=== PATIENT | female | born 1945 | race Caucasian/White ===

== ENCOUNTER 2019-11-29 16:48 | Inpatient (IN) | payer MEDICARE, SELFPAY ==
[2019-11-29 16:55] VITALS: BP 140/57; PULSE 58; RESP 18; TEMP 36.9; O2SAT 96; BMI 30.9
--- NOTE | 2019-11-29 18:17 | PCM.HP.STD ---
Problem List (1) DALLAS (obstructive sleep apnea) Status: Chronic Comment: Untreated (2) Mitral valve prolapse Status: Chronic (3) GERD (gastroesophageal reflux disease) Status: Chronic (4) History of rheumatic fever as a child Status: Chronic History of Present Illness Date of Admission: 11/29/19 Chief Complaint: Debility due to inability to ambulate secondary to right lateral malleolus comminuted fracture and a left talus fracture sustained in a fall on 11/28/19 The patient is a 74 year old F [] Past Medical History Past Medical History (Chronic Problems): Chronic Problems DALLAS (obstructive sleep apnea) (Chronic) Untreated Mitral valve prolapse (Chronic) GERD (gastroesophageal reflux disease) (Chronic) History of rheumatic fever as a child (Chronic) Allergies codeine Allergy (Verified 06/20/17 09:47) Unknown Surgical History: cholecystectomy, - - Tubal ligation Psychiatric History: No pertinent psych hx 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 She has 2 daughters. Smoking Status: Never smoker Tobacco Use: Non-smoker Alcohol: None Drugs: None - *Family History Maternal History Items: Cancer - Her mother at the age of 45 from colon cancer Paternal History Items: - - Father of congestive heart failure Review of Systems Constitutional: Denies: Chills, Fever, Weight Change Eyes: Denies: Blurred vision HEENT: Denies: Difficulty Hearing, Difficulty Swallowing, Head Aches, Sinus Congestion, Sinus Drainage, Sore Throat Cardiovascular: Reports: Light Headedness - episodic. Denies: Chest Pain, Palpitations, Syncope Respiratory: Denies: Cough, Hemoptysis, Pleuritic Pain, Shortness of Breath, Shortness of breath at rest, Sputum production, Wheezing Gastrointestinal: Denies: Abdominal Pain, Constipation, Diarrhea, Nausea, Vomiting Genitourinary: Denies: Dysuria Gynecological: Denies: Breast symptoms, Vaginal discharge Musculoskeletal: Reports: Joint Pain - both ankles due to recent fall and BL ankle fractures. Denies: Joint Tenderness Skin: Denies: Jaundice, Rash, Wounds Neurological: Reports: Balance problems - due to fractures. Denies: Change in Speech, Confusion, Difficulty swallowing, Focal weakness, Numbness, Tingling, Tremor, Seizures Psychiatric: Denies: Anxiety, Depression, Homicidal Ideations, Suicidal Ideations Hematologic/ Lymphatic: Denies: Easy Bruising, Easy Bleeding, Hx of blood clot VTE Information - Inpt Only VTE Present on Admission: No VTE Mechan Device Prophylaxis: Knee High MARIA M Hose VTE Pharm Prophylaxis ordered?: Yes Subjective: The pt is a 74-year-old female with a PMH of mitral valve prolapse, rheumatic fever as a child, GERD, DALLAS(not on CPAP), and obesity who was admitted to the Inpatient rehab unit at [facility] on 11/29/2019 for debility secondary to right lateral malleolar fracture and left talus fracture secondary to a fall for greater than 3 hours of therapy daily with a goal of returning home at or near prior level of independence. The patient lives at home by herself and has no steps. The patient was independent with ADL's, mobility and driving prior to hospitalization. She has a boot on the RLE and she is NWB on the RLE. She is WBAT on the LLE. Unable to ambulate today due to pain. She is not a surgical candidate. She tells me that she has episodic lightheadedness when standing and feels as though she is going to pass out. When she fell causing the fractures of the ankles she was trying to get to the couch or the chair before she passed out. she did not lose consciousness but, she did fall and could not get up. She tells me she got sweaty prior to falling. She denied CP or SOB. She had a cardiac cath in the past and the coronaries were normal. She is on 75mg of Atenolol daily. States her HR used to be in the 60's all the time but, now it is in the 40'2 and 50's. EKG in the ED at [facility] showed SB with a HR of 52, even with severe pain in the ankles. there was a first degree AVB but no significant ST or T wave changes and no BBB's. Mother of colon CA at the age of 45. Altagracia has a colonoscopy every 5 years. she has not had a MMG in at least 15 years. She has never had a DEXA. - Physical Exam Vitals/I&O's: Weight: 158 lb 1.143 oz Body Mass Index (BMI) 30.9 General: Alert, Oriented x3, Cooperative, No apparent distress, - - denies pain while lying in bed HEENT: Atraumatic, PERRLA, EOMI, Normocephalic Oral: No Gingival or Mucosal Lesions/ Ulcerations, Dry Mucosa Neck: Supple, No JVD, Negative Carotid Bruits, No Nodes, Trachea Midline Lungs: Clear to auscultation, Normal air movement, No rhonchi, No wheeze, No rales Cardiovascular: Regular rate, Regular Rhythm, Normal S1, Normal S2, No murmurs, No rub noted, No Gallop Abdomen: Bowel Sounds Present, Soft, Non Tender, Non-Distended, No Hepato-splenomegaly Extremities: No clubbing, No cyanosis, No edema, Capillary Refill Less than 3 Seconds, No Calf Tenderness, Peripheral Pulses Normal Skin: No rashes, No breakdown, - - she has extensive bruising of the L lateral foot and ankle with no openings in the skin Musculoskeletal: No Tenderness to Palpation of Joints or Extremities, No Muscle Wasting Lymphatic: - - No cervical or supraclavicular adenopathy Neurological: Cranial nerves II-XII grossly intact, Neuro grossly intact Psych/Mental Status: Normal Affect, Appropriate Current Medications Acetaminophen (Tylenol) 1,000 mg PO Q8 [facility] Aspirin (Aspirin, Baby) 81 mg PO DAILY@0800 [facility] Atenolol (Tenormin (Beta Sagrario)) 0 mg PO BID [facility] Bisacodyl (Dulcolax) 10 mg RECTAL .PRN X 1 PRN PRN Reason: Constipation Carbamazepine (Tegretol) 0 mg PO BIDCM [facility] Enoxaparin Sodium (Lovenox) 40 mg SC DAILY [facility] Famotidine (Pepcid) 20 mg PO DAILY [facility] Magnesium Hydroxide (Milk Of Magnesia) 30 ml PO .PRN X 1 PRN PRN Reason: Constipation Ondansetron HCl (Zofran Odt) 4 mg PO Q8H PRN PRN PRN Reason: NAUSEA Oxycodone HCl (Oxyir) 5 mg PO Q4H PRN PRN PRN Reason: Pain Score 4-10/10 Senna/Docusate Sodium (Senokot-S, Nuria-Colace) 2 tablet PO BID [facility] Assessment/Plan Impressions 1. Mildly comminuted fracture of the right lateral malleolus and small avulsion fracture of the left talus secondary to a fall. 2. Episodic lightheadedness and feeling as though she is going to faint associated with diaphoresis but no chest pain and no shortness of breath. Check orthostatic vital signs in the a.m. Heart rate was only 52 in the emergency department at [facility] and this may be too slow for her resulting in near syncope. 3. Chronic medical conditions including the mitral valve prolapse/GERD/DALLAS-unable to tolerate CPAP/rheumatic fever as a 5-year-old. If in continue home medications 4. Family history of colon cancer in her mother. Patient gets colonoscopies every 5 years but has not had a Pap smear or a mammogram in over 15 years and she has never had a DEXA. I recommended she obtain a mammogram, Pap smear and DEXA following discharge from the rehab unit. PLAN PT for gait stability OT for ADL's Analgesics as needed Bowel protocol Fall precautions Assess for Anxiety/Depression GI prophylaxis with famotidine with PRN Mylanta for breakthrough heartburn DVT prophylaxis with Lovenox 40 mg subcu night and once I am able to see her kidney function and other lab ordered we will switch her to a oral agent for DVT prophylaxis. Follow up with Dr. Orlando Sanchez following DC from [facility] Rehab and with orthopedics
--- NOTE | 2019-11-29 18:42 | PCM.RU.PYE ---
Admission Information Primary Diagnosis:: debility due to comminuted fx of the R lateral malleolus and the L talus Status Changes from Prescreening?: No changes Identified Actual Problem List:: Falls - due to, Alteration in Sleep - due to pain, Mobility Impaired, Self Care Deficit Potential Problem List:: DVT, Bleeding, Infection, UTI, Falls, Skin Integrity, Depression Risk of Complications DVT: LMWH, MARIA M Hose Bleeding: Monitor Lab Values, Nursing to Teach Precautions for anti-coagulation therapy., Wound, if applicable, to be assessed every shift., Stroke patients assessed for lethargy or change in status. Infection: Clinical Staff to Monitor for S/S of infection:, S/S of infection include fever, redness, warmth, etc. Urinary Tract Infection: Monitor for frequency, burning, discomfort, or incontinence., Nursing will obtain urine sample for urinalysis and C&S when ordered. Falls: Patient will be evaluated for Fall Precautions, Patient will be placed on Fall Precautions as indicated per protocol. Skin Breakdown: Nursing will assess skin daily using assessment tool., Nursing will place on Skin Breakdown Precautions as indicated. Pain: Clinical staff will assess patient's pain level per protocol., Medications will be given, if needed, and the pain level reassessed., Other methods: Massage, distraction, decrease stimulus, etc. used PRN. Plan of Care Patient requires physician specializing in physical medicine and rehab oversight to provide close medical supervision of rehab issues including: Pain Management, Sleep Problems, Bowel and Bladder, Medical and co-morbidity Management, DVT prophylaxis, Rehabilitation Leadership, Coordination of treatment team Patient needs Physical Therapy: For a minimum of 1 hour, At least 5 out of 7 days Patient needs Physical Therapy to improve:: Mobility, Mobility, Mobility, Strengthening, Transfers, Stretching, ROM, Endurance, Stairs, Gait, Balance Patient needs Occupational Therapy: For a minimum of 1 hour, At least 5 out of 7 days Patient needs Occupational Therapy to improve ADL's incl.: Eating, Grooming, Bathing, Dressing, Toileting, Toilet transfers, Community Reintegration, Higher functioning activities, Household tasks, Adaptive Equipment, Splinting, Other activities as determined Patient requires 24/7 Rehabilitation Nursing for: Pain Issues, Identifying and preventing risk factors, Monitoring and reporting current medical conditions, Assisting with ambulation, transfer, and all ADL's, Teaching patients about disease process and medications, Family teaching, Providing safe environment, Bowel and Bladder Issues, Skin integrity, Medication Management Patient needs Research Agricultural Engineer/ Case Management for: Discharge Planning, Arranging Home Equipment or Services, Family Interventions Patient needs Dietary and Nutrition Services for: Adequate Nutrition, Nutritional Supplements, Nutritional Education Goals Patient will remain: free from falls, or injury at time of discharge. Patient will perform bed mobility at: MOD I level of assist. Patient will complete transfers from bed to chair at: MOD I level of assist. Patient will ambulate: 100 feet, with MOD I assist, with LRD Patient will complete upper body dressing at: MOD I level of assist. Patient will complete lower body dressing at: MOD I level of assist. Patient will complete toileting at: MOD I level of assist. Patient will perform bathing at: MOD I level of assist. Patient will complete grooming at: MOD I level of assist. Patient will complete home management skills at: MOD I level of assist. Patient will achieve: 12 stairs, at MOD I assist Patient will have pain level of: of 3 or less Patient's skin will: remain intact, free from infection. Patient will receive: adequate nutrition. Discharge Planning Pt Prognosis for Sig. Practical Improv. w/in Reasonable Time: Good Estimated Length of stay (days): 14 Anticipated D/C Destination: unknown at this time. Was Preadmission Assessment Accurate?: Yes
[2019-11-29 19:03] LABS: Hemoglobin 12.8 g/dL (12.0-15.0); Mean Corp Hgb Conc 33.7 g/dL (32-36); Mean Corpuscular Hgb 30.2 pg (27.0-32.0); Mean Corpuscular Volume 89.6 fL (81-99); Mean Platelet Vol. 9.5 fl (6.2-12.0); Platelet Count 243 K/mm3 (150-450); RBC Distribution Width CV 12.2 % (11.6-14.6); RBC Distribution Width SD 39.9 fl (35.1-43.9); Red Blood Count 4.24 M/mm3 (4.2-5.4)
[2019-11-29 19:45] LABS: Carbamazepine (Tegretol) 8.2 ug/mL (4.0-12.0)
[2019-11-29 19:47] LABS: ALB/GLOB Ratio 1.1 RATIO (0.9-2.4); AST(SGOT) 23 U/L (15-37); Alanine Aminotransfer ALT/SGPT 29 U/L (13-56); Albumin, Serum 3.7 g/dL (3.2-5.0); Alkaline Phosphatase 187 U/L (45-117); Anion Gap 7 (5-15); BUN 14 mg/dL (7-18); BUN/Creat Ratio 14.5 RATIO (10-20); Chloride 95 mmol/L (98-107); Creatinine, Serum 0.97 mg/dL (0.55-1.02); EST Glomerular Filtration Rate 60 mL/min (>60); Est Glom Filt Rate - Afr Amer 72 mL/min (>60); Estimated Creatinine Clearance 36.55 ml/min; Globulin 3.5 g/dL (2.2-4.2); Glucose 96 mg/dL (74-106); Magnesium 2.3 mg/dL (1.6-2.6); Potassium 3.7 mmol/L (3.5-5.1); Protein, Total 7.2 g/dL (6.4-8.2); Sodium Level 131 mmol/L (136-145)
[2019-11-29 19:53] LABS: Vitamin D,25 Hydroxy 22.7 ng/mL (29.95-100.01)
[2019-11-29] MEDS: oxyCODONE 5 MG Tablet PO (19:57)
[2019-11-29 20:25] VITALS: BP 117/57; PULSE 56; RESP 16; TEMP 36.8; O2SAT 96
[2019-11-29 20:26] VITALS: PULSE 62
[2019-11-29 20:27] LABS: Thyroid Stim Hormone (TSH) 3.02 uIU/mL (0.358-3.74)
[2019-11-29] MEDS: Famotidine 20 MG Tablet PO (20:28)
[2019-11-29] MEDS: Senna/Docusate Sodium 1 Tablet 2 TABLET PO (20:28)
[2019-11-29] MEDS: Atenolol 50 MG Tablet PO (20:28)
[2019-11-29] MEDS: Acetaminophen 500 MG Tablet 1000 MG PO (22:12)
[2019-11-29] MEDS: Zolpidem Tartrate 5 MG Tablet PO (22:46)
[2019-11-29] MEDS: Ondansetron ODT 4 MG Tablet PO (23:51)
--- NOTE | 2019-11-30 00:07 | NURSING ---
2000: upon hs assessment and med administration, pt seems to be very anxious. pt expresses great worry of receiving a shot in the belly of lovenox in am. pt states the dr talked to her about it but she is really worried it will hurt. this nurse explained the process of the injection and possible side effect of burning to the patient. pt has increased worry and asks how long the burn will last for. this nurse explains that it varies per pt and it is possible that burning may not occur. pt states she understands. with further assessment, pt expresses concern for the pain in her leg. pt states she has a 9/10 pain and it feels like its going to blow out of the boot. pt feet elevated on a pillow. 2129: soon after, pt states she needs to use the restroom. staff encourages use of bsc for ease of stand pivot transfer. pt insistent on using bathroom. pt yelling out in pain with transfer and moaning for staff assistance to sit up. this nurse reassures pt that staff will assist her, but staff unaware of transferring needs at this time d/t new admit with no therapy eval yet. pt transferred into wheelchair and into restroom. pt grabs grab bar and transfers to bsc. staff attempts to help pt with underwear and pt refusing staff help. pt transferred back to bed after use of restroom and pt worried about the pain in legs. legs elevated. 2200: hs dose of tylenol administered. 2246: ambien administered per pt request of needing to sleep. 2330: pt calls out stating that she is having 10/10 pain and experiencing nausea related to the pain. pt wants to get up to use restroom. staff encourages use of bedpan d/t extreme pain and nausea. pt refuses and states that she cannot use a bedpan and is unable to urinate in one. pt assisted to bsc at this time. pt expresses concern of severe pain and asks why the sleeping pill has not worked yet. pt also expresses concern about waking up in am to do am care and adl. pt states that she has not slept yet and she is concerned about waking up early. pt also expresses concern of getting up to bathe and pt requests bed bath in the morning- pt still c/o nausea, PRN zofran given at 2351. 0000- RN paged hospitalist dr solis and notified of increased 10/10 pain and increased anxiety. dr solis orders 10mg oxyir Q4H PRN and Ativan 0.5 mg x1 dose. Will continue to monitor pt for increased pain and anxiety.
[2019-11-30] MEDS: LORazepam 0.5 MG Tablet PO (00:33)
[2019-11-30] MEDS: oxyCODONE 5 MG Tablet 10 MG PO ×3 (00:33→19:49)
[2019-11-30 04:24] LABS: Bedside Glucose 117 mg/dL (70-110)
--- NOTE | 2019-11-30 04:42 | NURSING ---
PT C/O STOMACH INDIGESTION AFTER ADMINISTRATION OF PAIN MEDICATION; UPON ENTERING ROOM PT FOUND SWEATY, PALE; BP 97/42. PT GIVEN SALTINE CRACKERS, BRITTANY IZA, MYLANTA. BS CHECKED FOR 117; BP RECHECK 117/57. PT STATED FEELS BETTER.
[2019-11-30] MEDS: Enoxaparin 40 MG/0.4 ML Syringe SC (06:17)
[2019-11-30] MEDS: Acetaminophen 500 MG Tablet 1000 MG PO ×3 (06:17→22:16)
[2019-11-30 07:00] VITALS: BP 119/56; BP 132/72; BP 133/79; PULSE 54; PULSE 57; PULSE 58
[2019-11-30 08:56] VITALS: BP 119/56; PULSE 54; RESP 16; TEMP 36.6; O2SAT 97
[2019-11-30] MEDS: Famotidine 20 MG Tablet PO ×2 (09:02→22:17)
[2019-11-30] MEDS: Atenolol 25 MG Tablet PO (09:02)
[2019-11-30] MEDS: carBAMazepine 200 MG Tablet 100 MG PO (09:02)
[2019-11-30] MEDS: Aspirin 81 MG TAB.CHEW PO (09:03)
[2019-11-30] MEDS: Senna/Docusate Sodium 1 Tablet 2 TABLET PO ×2 (09:04→22:16)
--- NOTE | 2019-11-30 12:48 | PN_ITS ---
Progress Note Afebile VSS orthostatics not done yet todAY. HR is in the 50's. BP lying down is good. Maintaining appropriate oxygen saturation on RA Discussed with nursing - pt was up a good deal of the night c/o severe pain. Oxycodone was increased to 10 mg by the night hospitalist. Nursing feels the pt is very anxious and this is affecting pain perception. She tells me that when the boot was removed the pain got better. She thinks the strap was causing too much pressure. Reviewed the PT/OT notes - she ambulated 5 ft with a FWW - complaining of pain on the left at 8/10. Medication list reviewed. All lab was personally reviewed. Sodium was low at 131 and the chloride is low at 95. Potassium is 3.7 and they serum bicarb is 29. BUN is 14 and a creatinine is 0.97. Vitamin D level is low at 22.7 and the TSH is normal. Carbamazepine is within the therapeutic window at 8.2. Alert, oriented X 3, pleasant. Pain is adequately controlled at this time. Denies nausea, chills, abdominal pain. No SOB and no CP. Alert , oriented X 3, Appropriate Lung - CTA Heart-regular rate and rhythm, no gallop Abdomen-soft, nontender, nondistended, normal bowel sounds in all 4 quadrants There is bruising of both ankles and swelling. The distal medial RLE has a localized area of increased bruising with a fluid filled blister in the center m ore likely than not secondary to pressure ulcer due to external pressure from the boot/straps. She has some calf tenderness on the right Impressions 1. New pressure ulcer on the distal/medial RLE - apply Bactroban to the blister/ulcer BID. Nursing will check the area BID and report any redness, increased warmth or purulent DC to me immediately. 2. intractable pain causing insomnia - Add a 12 mcg/hr Fentanyl patch for continuous pain relief and continue the PRN oxycodone and Tylenol 1,000 mg Q 8 hours. Hopefully will be able to DC the Fentanyl after 3-4 more days. 3. R lateral malleolus fracture and L talus fracture. RLE in a boot and WBAT on the LLE. Pt would prefer to follow up with Dr. Gibbons or Dr. Tabares rather than . Will consult early next week and obtain a follow up XRAY of the RLE - 7 days after the fracture which would be Tuesday. 4. Vitamin D deficiency - supplement ordered. I recommended to her that she has a DEXA to evaluate the bone density going forward. 5. Hyponatremia - check a urine sodium and creatinine to determine if this is pre-renal and 6. R calf pain - venous US ordered. Start Xarelto 10 mg daily in the AM...... discussed the interaction of Xarelto and carbamazepine and will continue with the Xarelto....pt refuses Lovenox shots STROKE Vital Signs/Narrative: Vital Signs Temp Pulse Resp BP Pulse Ox 11/30/19 08:56 97.9 F 54 L 16 119/56 L 97 Code Visit Inpatient E&M: 83429 Subs Hosp L2
--- NOTE | 2019-11-30 12:56 | VDLE_ITS ---
Reason For Study: Rt Calf Pain RIGHT LEFT GSV is normal. CFV is compressible, spontaneous, phasic, CFV is compressible, spontaneous, phasic, competent, and demonstrates normal competent and demonstrates normal augmentation. augmentation. FV is compressible, spontaneous, phasic, competent and demonstrates normal augmentation. POP V is compressible, spontaneous, phasic, competent and demonstrates normal augmentation. T/P Trunk is compressible. PTV is compressible. RT PerV is compressible. Procedure Exam performed portable in patient room. A preliminary report was called and/or faxed to Dr. Shen. Interpretation Summary Deep veins of the right lower extremity are patent and compressible segmentally. There is no evidence of right lower extremity deep vein thrombosis. Valvular competence appears intact within the proximal deep venous system on the right . The right great saphenous vein appears patent and compressible segmentally. Ordering Physician: Trisha Shen Referring Physician: Orlando Sanchez Performed By: Jimena Paul, AKILAH, RVT
[2019-11-30] MEDS: busPIRone 5 MG Tablet PO ×2 (13:09→22:17)
[2019-11-30] MEDS: carBAMazepine 200 MG Tablet PO (16:52)
[2019-11-30 17:30] LABS: Urine Sodium 20 mmol/L (Not Establ.)
[2019-11-30 19:39] VITALS: BP 140/67; PULSE 61; RESP 12; TEMP 36.9; O2SAT 98
[2019-11-30] MEDS: Mupirocin Ointment 22gm Tube 1 APPLIC TOPICAL (22:17)
[2019-11-30] MEDS: Atenolol 50 MG Tablet PO (22:19)
--- NOTE | 2019-12-01 05:30 | NURSING ---
PT MEDICATED WITH ZOFRAN FOR VOMITING WHICH OCCURRED AFTER USING RESTROOM. PT VOMITS APPROX 150 ML BROWN/GREEN EMESIS. PT FEELS SHE IS CONSTIPATED AND THAT IS WHY SHE IS VOMITING. PT REQUESTING MED TO ASSIST WITH THIS.
[2019-12-01] MEDS: Ondansetron ODT 4 MG Tablet PO ×2 (05:32→15:49)
--- NOTE | 2019-12-01 06:02 | NURSING ---
PT RESTING QUIETLY, CONTINUES WITH SMALL AMT OF NAUSEA.
[2019-12-01] MEDS: Acetaminophen 500 MG Tablet 1000 MG PO ×3 (06:40→21:20)
[2019-12-01] MEDS: busPIRone 5 MG Tablet PO ×3 (06:42→21:21)
[2019-12-01] MEDS: carBAMazepine 200 MG Tablet 100 MG PO (07:39)
[2019-12-01] MEDS: Aspirin 81 MG TAB.CHEW PO (07:39)
[2019-12-01] MEDS: Mupirocin Ointment 22gm Tube 1 APPLIC TOPICAL ×2 (07:40→21:21)
[2019-12-01 08:32] VITALS: BP 130/54; PULSE 56; RESP 16; TEMP 36.6; O2SAT 98
[2019-12-01] MEDS: Atenolol 25 MG Tablet PO ×2 (09:33→21:22)
[2019-12-01] MEDS: Magnesium Hydroxide 30 ML UDC PO (09:34)
[2019-12-01] MEDS: Famotidine 20 MG Tablet PO ×2 (09:34→21:21)
[2019-12-01] MEDS: Senna/Docusate Sodium 1 Tablet 2 TABLET PO (09:34)
[2019-12-01] MEDS: carBAMazepine 200 MG Tablet PO (18:05)
[2019-12-01] MEDS: Rivaroxaban 10 MG Tablet PO (18:06)
[2019-12-01 20:14] VITALS: BP 130/44; PULSE 59; RESP 16; TEMP 36.8; O2SAT 94
[2019-12-01] MEDS: Atenolol 50 MG Tablet PO (21:23)
[2019-12-01 22:00] VITALS: PULSE 59; RESP 17
[2019-12-02] MEDS: busPIRone 5 MG Tablet PO ×3 (06:22→20:33)
[2019-12-02] MEDS: Acetaminophen 500 MG Tablet 1000 MG PO ×3 (06:22→20:35)
[2019-12-02] MEDS: carBAMazepine 200 MG Tablet 100 MG PO (08:15)
[2019-12-02] MEDS: Aspirin 81 MG TAB.CHEW PO (08:15)
[2019-12-02] MEDS: Mupirocin Ointment 22gm Tube 1 APPLIC TOPICAL ×2 (08:16→20:32)
[2019-12-02] MEDS: Famotidine 20 MG Tablet PO ×2 (08:16→20:34)
[2019-12-02] MEDS: Ondansetron ODT 4 MG Tablet PO (08:19)
[2019-12-02] MEDS: Senna/Docusate Sodium 1 Tablet 2 TABLET PO ×2 (08:20→20:35)
[2019-12-02 09:02] VITALS: BP 128/55; PULSE 58; RESP 18; TEMP 36.6; O2SAT 97
--- NOTE | 2019-12-02 16:13 | PCM.PN.HOSP ---
Subjective: The patient was admitted for debility due to inability to ambulate secondary to right lateral malleolus, comminuted fracture and a left talus fracture sustained in a fall on 11/28/19 Patient has pressure ulcer on the distal/medial right lower extremity, covered with dressing. Right lower extremity splint. Vitals/I&O's: Vital Signs Temp Pulse Resp BP Pulse Ox 97.8 F 58 L 18 128/55 H 97 12/02/19 09:02 12/02/19 09:02 12/02/19 09:02 12/02/19 09:02 12/02/19 09:02 Oxygen Delivery Method Room Air Weight: 158 lb 1.143 oz Body Mass Index (BMI) 30.9 Intake and Output for Last 24 Hours 11/30/19 12/01/19 12/02/19 23:59 23:59 23:59 Intake Total 920 / 920 720 / 720 860 / 860 Output Total 1500 / 1500 575 / 575 400 / 400 Balance -580 / -580 145 / 145 460 / 460 General: Alert, Oriented x3, Cooperative HEENT: Atraumatic, PERRLA, EOMI, Normocephalic Neck: Supple, No JVD, Negative Carotid Bruits Lungs: Clear to auscultation, Normal air movement, No rhonchi, No wheeze, No rales Cardiovascular: Regular rate, Regular Rhythm, Normal S1, Normal S2, No murmurs Abdomen: Bowel Sounds Present, Soft, Non Tender, Non-Distended Extremities: Capillary Refill Less than 3 Seconds, Edema - Right lower leg. Skin: Ulcer/ Wound - Right distal/medial basal ulcer Musculoskeletal: Arthritic Changes - Fracture of right lateral malleolus and left talus fracture, Tenderness Neurological: Cranial nerves II-XII grossly intact Psych/Mental Status: Normal Affect, Appropriate Current Medications Acetaminophen (Tylenol) 1,000 mg PO Q8 [facility] Last Admin: 12/02/19 13:17 Dose: 1,000 mg Documented by: Al Hydroxide/Mg Hydroxide (Mylanta Ii) 30 ml PO Q6H PRN PRN PRN Reason: HEARTBURN Aspirin (Aspirin, Baby) 81 mg PO DAILY@0800 [facility] Last Admin: 12/02/19 08:15 Dose: 81 mg Documented by: Atenolol (Tenormin (Beta Sagrario)) 50 mg PO QPM [facility] Last Admin: 12/01/19 21:23 Dose: 50 mg Documented by: Atenolol (Tenormin (Beta Sagrario)) 25 mg PO QAM [facility] Last Admin: 12/01/19 21:22 Dose: 25 mg Documented by: Bisacodyl (Dulcolax) 10 mg RECTAL .PRN X 1 PRN PRN Reason: Constipation Buspirone HCl (Buspar) 5 mg PO TID [facility] Last Admin: 12/02/19 13:17 Dose: 5 mg Documented by: Carbamazepine (Tegretol) 200 mg PO DAILY@1700 [facility] Last Admin: 12/01/19 18:05 Dose: 200 mg Documented by: Carbamazepine (Tegretol) 100 mg PO DAILY@0800 [facility] Last Admin: 12/02/19 08:15 Dose: 100 mg Documented by: Cholecalciferol (Vitamin D) 2,000 unit PO DAILYCM [facility] Last Admin: 12/02/19 08:16 Dose: 2,000 unit Documented by: Famotidine (Pepcid) 20 mg PO BID [facility] Last Admin: 12/02/19 08:16 Dose: 20 mg Documented by: Fentanyl (Duragesic Patch) 12 mcg TRANSDERM. Q72H [facility] Last Admin: 11/30/19 15:23 Dose: 12 mcg Documented by: Magnesium Hydroxide (Milk Of Magnesia) 30 ml PO .PRN X 1 PRN PRN Reason: Constipation Last Admin: 12/01/19 09:34 Dose: 30 ml Documented by: Mupirocin (Bactroban) 1 applic TOPICAL BID [facility]; Protocol Last Admin: 12/02/19 08:16 Dose: 1 applicatio Documented by: Ondansetron HCl (Zofran Odt) 4 mg PO Q8H PRN PRN PRN Reason: NAUSEA Last Admin: 12/02/19 08:19 Dose: 4 mg Documented by: Oxycodone HCl (Oxyir) 10 mg PO Q4H PRN PRN PRN Reason: Pain Score 4-10/10 Last Admin: 11/30/19 19:49 Dose: 10 mg Documented by: Rivaroxaban (Xarelto) 10 mg PO DAILY@1700 [facility] Last Admin: 12/01/19 18:06 Dose: 10 mg Documented by: Senna/Docusate Sodium (Senokot-S, Nuria-Colace) 2 tablet PO BID [facility] Last Admin: 12/02/19 08:20 Dose: 2 tablet Documented by: Zolpidem Tartrate (Ambien (Generic)) 5 mg PO QHS PRN PRN PRN Reason: INSOMNIA Last Admin: 11/29/19 22:46 Dose: 5 mg Documented by: Medical Necessity - Tobacco Use Smoking Status: Never smoker Tobacco Use: Non-smoker Assessment/Plan This 74-year-old female was admitted for debility secondary to right lateral molluscum refracture and left talus fracture. Currently patient has splint on right lower leg. 1. New pressure ulcer on the distal, medial right lower leg-on Bactroban and moist to dry dressing. Twice daily dressing. 2. Pain on right lower leg:-pain is much better controlled after fentanyl patch, 12 mcg along with oxycodone and Tylenol for breakthrough breakthrough PRN pain. [place] patient denies pain. 3. R lateral malleolus fracture and L talus fracture. RLE in a boot and WBAT on the LLE. Pt would prefer to follow up with Dr. Gibbons or Dr. Tabares rather than . There is plan for follow-up with x-ray of right lower extremity, 7 days after fracture; on next Tuesday. Follow-up with orthopedic surgeon 4. Vitamin D deficiency -vitamin D supplement . DEXA to evaluate the bone density as outpatient 5. Hyponatremia -urine sodium is 20, is more on lower side, creatinine 43. Seems mainly prerenal. Repeat BMP tomorrow a.m. 6. R calf pain - venous US was done and reported as no evidence of right lower extremity DVT. On Xarelto for DVT prophylaxis. Active Medications Acetaminophen (Tylenol) 1,000 mg PO Q8 [facility] Last Admin: 12/02/19 13:17 Dose: 1,000 mg Documented by: Al Hydroxide/Mg Hydroxide (Mylanta Ii) 30 ml PO Q6H PRN PRN PRN Reason: HEARTBURN Aspirin (Aspirin, Baby) 81 mg PO DAILY@0800 [facility] Last Admin: 12/02/19 08:15 Dose: 81 mg Documented by: Atenolol (Tenormin (Beta Sagrario)) 50 mg PO QPM [facility] Last Admin: 12/01/19 21:23 Dose: 50 mg Documented by: Atenolol (Tenormin (Beta Sagrario)) 25 mg PO QAM [facility] Last Admin: 12/01/19 21:22 Dose: 25 mg Documented by: Bisacodyl (Dulcolax) 10 mg RECTAL .PRN X 1 PRN PRN Reason: Constipation Buspirone HCl (Buspar) 5 mg PO TID [facility] Last Admin: 12/02/19 13:17 Dose: 5 mg Documented by: Carbamazepine (Tegretol) 200 mg PO DAILY@1700 [facility] Last Admin: 12/01/19 18:05 Dose: 200 mg Documented by: Carbamazepine (Tegretol) 100 mg PO DAILY@0800 [facility] Last Admin: 12/02/19 08:15 Dose: 100 mg Documented by: Cholecalciferol (Vitamin D) 2,000 unit PO DAILYCM [facility] Last Admin: 12/02/19 08:16 Dose: 2,000 unit Documented by: Famotidine (Pepcid) 20 mg PO BID [facility] Last Admin: 12/02/19 08:16 Dose: 20 mg Documented by: Fentanyl (Duragesic Patch) 12 mcg TRANSDERM. Q72H [facility] Last Admin: 11/30/19 15:23 Dose: 12 mcg Documented by: Magnesium Hydroxide (Milk Of Magnesia) 30 ml PO .PRN X 1 PRN PRN Reason: Constipation Last Admin: 12/01/19 09:34 Dose: 30 ml Documented by: Mupirocin (Bactroban) 1 applic TOPICAL BID [facility]; Protocol Last Admin: 12/02/19 08:16 Dose: 1 applicatio Documented by: Ondansetron HCl (Zofran Odt) 4 mg PO Q8H PRN PRN PRN Reason: NAUSEA Last Admin: 12/02/19 08:19 Dose: 4 mg Documented by: Oxycodone HCl (Oxyir) 10 mg PO Q4H PRN PRN PRN Reason: Pain Score 4-10/10 Last Admin: 11/30/19 19:49 Dose: 10 mg Documented by: Rivaroxaban (Xarelto) 10 mg PO DAILY@1700 [facility] Last Admin: 12/01/19 18:06 Dose: 10 mg Documented by: Senna/Docusate Sodium (Senokot-S, Nuria-Colace) 2 tablet PO BID [facility] Last Admin: 12/02/19 08:20 Dose: 2 tablet Documented by: Zolpidem Tartrate (Ambien (Generic)) 5 mg PO QHS PRN PRN PRN Reason: INSOMNIA Last Admin: 11/29/19 22:46 Dose: 5 mg Documented by: Code Visit Inpatient E&M: 92999 Subs Hosp L2
[2019-12-02] MEDS: carBAMazepine 200 MG Tablet PO (16:37)
[2019-12-02] MEDS: Rivaroxaban 10 MG Tablet PO (16:37)
[2019-12-02] MEDS: Atenolol 50 MG Tablet PO (20:32)
[2019-12-02] MEDS: Mag Hydrox/Al Hydrox/Simeth 30 ML UDC PO (20:34)
[2019-12-02 21:00] VITALS: BP 110/78; PULSE 55; RESP 18; TEMP 36.3; O2SAT 99
[2019-12-03 06:18] LABS: Anion Gap 4 (5-15); BUN 10 mg/dL (7-18); BUN/Creat Ratio 11.8 RATIO (10-20); Calcium,Total 8.3 mg/dL (8.5-10.1); Chloride 95 mmol/L (98-107); Creatinine, Serum 0.85 mg/dL (0.55-1.02); EST Glomerular Filtration Rate 69 mL/min (>60); Est Glom Filt Rate - Afr Amer 84 mL/min (>60); Estimated Creatinine Clearance 41.71 ml/min; Glucose 124 mg/dL (74-106); Potassium 4.1 mmol/L (3.5-5.1); Sodium Level 128 mmol/L (136-145)
[2019-12-03] MEDS: busPIRone 5 MG Tablet PO ×3 (06:47→22:23)
[2019-12-03] MEDS: Acetaminophen 500 MG Tablet 1000 MG PO ×3 (06:47→22:24)
[2019-12-03 07:00] VITALS: BP 137/43; PULSE 54; RESP 16; TEMP 36.4; O2SAT 100
[2019-12-03] MEDS: Famotidine 20 MG Tablet PO ×2 (07:37→22:23)
[2019-12-03] MEDS: Atenolol 25 MG Tablet PO (07:37)
[2019-12-03] MEDS: Mupirocin Ointment 22gm Tube 1 APPLIC TOPICAL ×2 (07:38→22:22)
[2019-12-03] MEDS: Aspirin 81 MG TAB.CHEW PO (07:38)
[2019-12-03] MEDS: Senna/Docusate Sodium 1 Tablet 2 TABLET PO ×2 (07:38→22:24)
[2019-12-03] MEDS: carBAMazepine 200 MG Tablet 100 MG PO (07:38)
[2019-12-03 07:43] VITALS: BP 132/55; PULSE 58
--- NOTE | 2019-12-03 11:55 | CASEMGMT ---
Social Work IDT met with patient for Team Meeting. Discussed patient's progress in therapy. Pt is min assist for transfers, walking 10 ft with FWW and will focus more on w/c mobility. Pt has developed pressure ulcer from boot. Pt's apartment is w/c accessible. Pt can weight shift while sitting down and is SBA for all ADLS. Physician consulted ortho for possible repeat xray and then see if pt can begin showering. Explained Medicare coverage - ELOS 15 days - DC date 12/14. Will ReTeam next week. Will continue to follow. BRADEN Baker SLABBER
--- NOTE | 2019-12-03 12:03 | PCM.PROGNOTE ---
Subjective: Pt seen on TEAM rounds today. No other family present. Her dtr visited over the weekend and she went home last night. Afebile VSS Maintaining appropriate oxygen saturation on RA Oral intake is good DVT prophylaxis with Xarelto and MARIA M hose. Discussed with nursing - no problems that need addressed Reviewed the PT/OT notes Medication list reviewed. All laboratory was personally reviewed. The sodium is lower today at 128, down from 135 at admission. Chloride is low at 95. The anion gap is low at 4. BUN is 10 and the creatinine is 0.85. Fasting blood sugar today is mildly increased at 124. Calcium is low at 8.3. FeNA is 0.3% which is consistent with pre-renal azotemia. She tells me that the Fentanyl has controlled her pain very well....she has only taken the Oxycodone once since the Fentanyl was started. She is also taking scheduled Tylenol every 8 hours. She still seems quite anxious. Denies abd pain, constipation, she has some burning with urination only in the AM and this is chronic.....no change from what she normally experiences at home. No CP and no calf pain. PT/OT feel she is going to be able to go home in a [place] with [facility] for PT/OT. - Physical Exam Vitals/I&O's: Vital Signs Temp Pulse Resp BP Pulse Ox 97.5 F L 58 L 16 132/55 H 100 12/03/19 07:00 12/03/19 07:43 12/03/19 07:00 12/03/19 07:43 12/03/19 07:00 Oxygen Delivery Method Room Air Weight: 158 lb 1.143 oz Body Mass Index (BMI) 30.9 Intake and Output for Last 24 Hours 12/01/19 12/02/19 12/03/19 23:59 23:59 23:59 Intake Total 720 / 720 1460 / 1460 360 / 360 Output Total 575 / 575 400 / 400 Balance 145 / 145 1060 / 1060 360 / 360 General: Alert, Oriented x3, Cooperative, No apparent distress, Well developed, Well nourished, - - she was examined sitting in the WC and the leg was examined laying in bed. HEENT: PERRLA, EOMI Oral: No Gingival or Mucosal Lesions/ Ulcerations, Dry Mucosa Neck: Supple, No JVD, Trachea Midline Lungs: Clear to auscultation, Normal air movement Cardiovascular: Regular Rhythm, Normal S1, Normal S2, No murmurs, Bradycardic - the HR is in the 50's., No Gallop Abdomen: Bowel Sounds Present, Soft, Non Tender, Non-Distended Extremities: No cyanosis, Edema - of the R ankle and the distal RLE. No edema on the Left today., - - the blister on the distal medial RLE is now a small stage 2 ischemic ulcer. There is circumferential bruising that is unchanges. There is no increased warmth to touch and there is no purulent DC. she is afebrile Skin: No rashes, - - see above for the description of the small ischemic ulcer due to pressure from the straps on the boot Neurological: Cranial nerves II-XII grossly intact, Neuro grossly intact Psych/Mental Status: Anxious - she gets more anxious when there are a lot of staff in the room Laboratory Results 12/03/19 05:25: Sodium 128 L, Potassium 4.1, Chloride 95 L, Carbon Dioxide 29.0, Anion Gap 4 L, BUN 10, Creatinine 0.85, Estim Creat Clear Calc 41.71, Est GFR (MDRD) Af Amer 84, Est GFR (MDRD) Non-Af 69, BUN/Creatinine Ratio 11.8, Glucose 124 H, Calcium 8.3 L Current Medications Acetaminophen (Tylenol) 1,000 mg PO Q8 [facility] Last Admin: 12/03/19 06:47 Dose: 1,000 mg Documented by: Al Hydroxide/Mg Hydroxide (Mylanta Ii) 30 ml PO Q6H PRN PRN PRN Reason: HEARTBURN Last Admin: 12/02/19 20:34 Dose: 30 ml Documented by: Aspirin (Aspirin, Baby) 81 mg PO DAILY@0800 [facility] Last Admin: 12/03/19 07:38 Dose: 81 mg Documented by: Atenolol (Tenormin (Beta Sagrario)) 50 mg PO QPM [facility] Last Admin: 12/02/19 20:32 Dose: 50 mg Documented by: Atenolol (Tenormin (Beta Sagrario)) 25 mg PO QAM [facility] Last Admin: 12/03/19 07:37 Dose: 25 mg Documented by: Bisacodyl (Dulcolax) 10 mg RECTAL .PRN X 1 PRN PRN Reason: Constipation Buspirone HCl (Buspar) 5 mg PO TID [facility] Last Admin: 12/03/19 06:47 Dose: 5 mg Documented by: Carbamazepine (Tegretol) 200 mg PO DAILY@1700 [facility] Last Admin: 12/02/19 16:37 Dose: 200 mg Documented by: Carbamazepine (Tegretol) 100 mg PO DAILY@0800 [facility] Last Admin: 12/03/19 07:38 Dose: 100 mg Documented by: Cholecalciferol (Vitamin D) 2,000 unit PO DAILYCM [facility] Last Admin: 12/03/19 07:37 Dose: 2,000 unit Documented by: Famotidine (Pepcid) 20 mg PO BID [facility] Last Admin: 12/03/19 07:37 Dose: 20 mg Documented by: Fentanyl (Duragesic Patch) 12 mcg TRANSDERM. Q72H [facility] Last Admin: 11/30/19 15:23 Dose: 12 mcg Documented by: Magnesium Hydroxide (Milk Of Magnesia) 30 ml PO .PRN X 1 PRN PRN Reason: Constipation Last Admin: 12/01/19 09:34 Dose: 30 ml Documented by: Mupirocin (Bactroban) 1 applic TOPICAL BID [facility]; Protocol Last Admin: 12/03/19 07:38 Dose: 1 applicatio Documented by: Ondansetron HCl (Zofran Odt) 4 mg PO Q8H PRN PRN PRN Reason: NAUSEA Last Admin: 12/02/19 08:19 Dose: 4 mg Documented by: Oxycodone HCl (Oxyir) 10 mg PO Q4H PRN PRN PRN Reason: Pain Score 4-10/10 Last Admin: 11/30/19 19:49 Dose: 10 mg Documented by: Rivaroxaban (Xarelto) 10 mg PO DAILY@1700 [facility] Last Admin: 12/02/19 16:37 Dose: 10 mg Documented by: Senna/Docusate Sodium (Senokot-S, Nuria-Colace) 2 tablet PO BID [facility] Last Admin: 12/03/19 07:38 Dose: 2 tablet Documented by: Zolpidem Tartrate (Ambien (Generic)) 5 mg PO QHS PRN PRN PRN Reason: INSOMNIA Last Admin: 11/29/19 22:46 Dose: 5 mg Documented by: Medical Necessity - Tobacco Use Smoking Status: Never smoker Tobacco Use: Non-smoker Assessment/Plan Impressions 1. Mildly comminuted fracture of the right lateral malleolus and small avulsion fracture of the left talus secondary to a fall. Pt expressed that she would like to follow up with Dr. Tabares or Dr. Gibbons today and Dr. Gibbons will be seeing her in consult. He ordered XRAYS. Nursing notified Dr. Ramires that the pt will be following up with Dr. Gibbons at her request. 2. Episodic lightheadedness and feeling as though she is going to faint associated with diaphoresis but no chest pain and no shortness of breath. Orthostatic vital signs were negative. Heart rate was only 52 in the emergency department at [facility] and this may be too slow for her resulting in near syncope. Heart rate has been consistently in the 50's since admission. We will check her heart rate with exertion. She is also somewhat dehydrated. The low sodium is consistent with prerenal azotemia as the fractional excretion of sodium is less than 1%. 3. Chronic medical conditions including the mitral valve prolapse/GERD/[place]-unable to tolerate CPAP/rheumatic fever as a 5-year-old. If in continue home medications 4. Family history of colon cancer in her mother. Patient gets colonoscopies every 5 years but has not had a Pap smear or a mammogram in over 15 years and she has never had a DEXA. I recommended she obtain a mammogram, Pap smear and DEXA following discharge from the rehab unit. 5. hyponatremia - FeNA is 0.3% and this is consistent with Pre-renal azotemia. Will order 2 liters of NS today and recheck a BMP Tue. Potassium is not elevated. The BUN/Creat ratio is only 11.8? If the sodium does not increase with NS consider other causes. TSH is within normal limits. 6. Vitamin D deficiency-has been started on a vitamin D supplement. 7. Anxiety-continue BuSpar. Will likely discharge on this as she is an anxious person and she has several more weeks of wearing the boot and being in wheelchair. Continue DVT prophylaxis with MARIA M hose and Xarelto Renew the fentanyl patch for 72 more hours and then consider discontinuing the fentanyl and using scheduled Tylenol and oxycodone as needed. Recheck BMP, HH and a cortisol on Tue morning 2 Liters of NS and then DC Code Visit Inpatient E&M: 58786 Subs Hosp L2
--- NOTE | 2019-12-03 15:59 | RAD_ITS ---
STUDY: X-RAY - RIGHT ANKLE REASON FOR EXAM: Female, 74 years old. Follow-up fracture. TECHNIQUE: 3 view(s) of the ankle. COMPARISON: Right ankle, February 07, 2010. FINDINGS: Normal visualized distal tibia. There is a minimally displaced comminuted fracture of the distal fibula. Normal tibiotalar articulation and ankle mortise. Normal visualized talus and calcaneus. The visualized subtalar, talonavicular, calcaneocuboid and tarsal articulations are normal. Diffuse soft tissue swelling over the ankle. RAD/Ankle min 3 Views IMPRESSION: Mildly displaced fracture of the distal fibula. Electronically Signed: Red Milner DO at 20:20 EST Tel [phone], Service support ,
--- NOTE | 2019-12-03 15:59 | RAD_ITS ---
STUDY: X-RAY - LEFT ANKLE REASON FOR EXAM: Female, 74 years old. Follow-up fracture. TECHNIQUE: 3 view(s) of the ankle. COMPARISON: None. FINDINGS: Normal visualized distal tibia and fibula. Normal medial and lateral malleoli. Normal tibiotalar articulation and ankle mortise. Normal visualized talus. There is a plantar spur along the underside of the calcaneus. The visualized subtalar, talonavicular, calcaneocuboid and tarsal articulations are normal. There is diffuse soft tissue swelling. RAD/Ankle min 3 Views IMPRESSION: Soft tissue swelling without visualized fracture or dislocation. Electronically Signed: Red Milner DO at 20:19 EST Tel [phone], Service support ,
--- NOTE | 2019-12-03 16:02 | NURSING ---
xray in at bedside
--- NOTE | 2019-12-03 16:19 | CHAPLAIN ---
Type of Pastoral Visit _x__ Initial Visit ___ Follow-up Visit ___ On-call Visit ___ General Patient Visit ___ Spiritual Assessment ___ Family Conference ___ Bereavement ___ Rapid Response ___ Code Blue ___ Other (describe below) Pastoral Care Referral From _x__ Patient ___ Family ___ Nurse ___ Physician ___ Logging Truck Driver ___ Detasseling Crew Supervisor ___ Other (describe below) Sacrament/Intervention _x__ Active listening ___ Anointing ___ Church ___ Bereavement ___ Communion ___ Orly exploration ___ ___ Life review _x__ Prayer ___ Reconciliation ___ Sacrament of Sick ___ Supportive presence ___ Wedding ___ Other (describe below) Pastoral Comments visit per patient request
[2019-12-03] MEDS: Rivaroxaban 10 MG Tablet PO (16:56)
[2019-12-03] MEDS: carBAMazepine 200 MG Tablet PO (16:56)
[2019-12-03 21:26] VITALS: BP 122/63; PULSE 56; RESP 16; TEMP 36.5; O2SAT 98
[2019-12-03] MEDS: Atenolol 50 MG Tablet PO (22:26)
[2019-12-03] MEDS: 0.9% Saline Lock 10 ML Syringe IV (22:38)
[2019-12-03] MEDS: 0.9% Normal Saline 1,000 ML 100 ML IV (22:54)
[2019-12-03 23:15] VITALS: PULSE 56
[2019-12-04] MEDS: busPIRone 5 MG Tablet PO ×3 (05:08→21:33)
[2019-12-04] MEDS: Acetaminophen 500 MG Tablet 1000 MG PO ×3 (05:08→21:32)
[2019-12-04 06:51] VITALS: BP 122/58; BP 129/60; BP 131/52; PULSE 56; PULSE 61; PULSE 62
[2019-12-04 07:00] VITALS: BP 119/49; PULSE 56; RESP 16; TEMP 36.5; O2SAT 97
[2019-12-04] MEDS: Famotidine 20 MG Tablet PO ×2 (08:57→21:33)
[2019-12-04] MEDS: Aspirin 81 MG TAB.CHEW PO (08:57)
[2019-12-04] MEDS: Atenolol 25 MG Tablet PO (08:57)
[2019-12-04] MEDS: carBAMazepine 200 MG Tablet 100 MG PO (08:57)
[2019-12-04] MEDS: 0.9% Normal Saline 1,000 ML 100 ML IV (08:58)
--- NOTE | 2019-12-04 11:27 | PCM.CONS.GEN ---
Reason for Consult Date of Consultation: 12/04/19 Reason for Consultation: right ankle fracture History of Present Illness: The patient is a 74 year old F who had a syncopal event November 28, 2019 injuring bilateral ankles she did proceed to another facility and was sent here for rehab I was consulted for her ankle right ankle fracture. She has no prior issues or prior surgeries with bilateral ankles. She admits to pain in bilateral legs she was placed on Xarelto 10 mg daily for DVT prophylaxis. she does have mitral valve prolapse but does not take blood thinners regularly for this she does not use assistive device regularly. Past Medical History Past Medical History (Chronic Problems): Chronic Problems DALLAS (obstructive sleep apnea) (Chronic) Untreated Mitral valve prolapse (Chronic) GERD (gastroesophageal reflux disease) (Chronic) History of rheumatic fever as a child (Chronic) Allergies codeine Allergy (Verified 06/20/17 09:47) Unknown Surgical History: cholecystectomy, - - Tubal ligation Psychiatric History: No pertinent psych hx DAIRY SPECIALIST History: No pertinent DAIRY SPECIALIST history Lives: Alone, - - Has been for 30 years. She has 2 daughters. Smoking Status: Never smoker Tobacco Use: Non-smoker Alcohol: None Drugs: None - *Family History Maternal History Items: Cancer - Her mother at the age of 45 from colon cancer Paternal History Items: - - Father of congestive heart failure Objective: X-rays demonstrate a right ankle displaced lateral malleolus fracture approaching 3 mm of displacement oblique. There is also slight widening of the medial clear space. - Physical Exam Vitals/I&O's: Vital Signs Temp Pulse Resp BP Pulse Ox 97.7 F L 56 L 16 119/49 L 97 12/04/19 07:00 12/04/19 07:00 12/04/19 07:00 12/04/19 07:00 12/04/19 07:00 Oxygen Delivery Method Room Air Weight: 158 lb 1.143 oz Body Mass Index (BMI) 30.9 Orthostatic Vital Signs Start: 11/30/19 18:08 Freq: q24h Status: Active Protocol: Activity Type Activity Date Activity User E-Sign Co-Sign Detail Recorded Client Recorded Date Recorded By Document 12/04/19 06:51 AB [id number] 12/04/19 06:55 AB 12/04/19 06:51 Orthostatic Vitals Standing -Blood Pressure (90/60-120/80) 122/58 H -Extremity Use Right Arm -Pulse Rate (60-100) 62 Sitting -Blood Pressure (90/60-120/80) 129/60 H -Extremity Use Right Arm -Pulse Rate (60-100) 61 Lying -Blood Pressure (90/60-120/80) 131/52 H -Extremity Use Right Arm -Pulse Rate (60-100) 56 L Intake and Output for Last 24 Hours 12/02/19 12/03/19 12/04/19 23:59 23:59 23:59 Intake Total 1460 / 1460 1420 / 1420 1240 / 1240 Output Total 400 / 400 Balance 1060 / 1060 1420 / 1420 1240 / 1240 General: Alert, Oriented x3, Cooperative, No apparent distress Extremities: - - Right ankle swelling medial lateral she is exquisitely tender over the fracture site as well as the deltoid ligament medially is a noninfected ulceration over anterior distal tibia buckle pedal pulses intact sensation light touch able to wiggle toes compartments soft positive wrinkle sign Left ankle positive swelling and tenderness about lateral goal anterior talofibular ligament tenderness she is also tenderness over the anterior talus Current Medications Acetaminophen (Tylenol) 1,000 mg PO Q8 [facility] Last Admin: 12/04/19 05:08 Dose: 1,000 mg Documented by: Al Hydroxide/Mg Hydroxide (Mylanta Ii) 30 ml PO Q6H PRN PRN PRN Reason: HEARTBURN Last Admin: 12/02/19 20:34 Dose: 30 ml Documented by: Aspirin (Aspirin, Baby) 81 mg PO DAILY@0800 [facility] Last Admin: 12/04/19 08:57 Dose: 81 mg Documented by: Atenolol (Tenormin (Beta Sagrario)) 50 mg PO QPM [facility] Last Admin: 12/03/19 22:26 Dose: 50 mg Documented by: Atenolol (Tenormin (Beta Sagrario)) 25 mg PO QAM [facility] Last Admin: 12/04/19 08:57 Dose: 25 mg Documented by: Bisacodyl (Dulcolax) 10 mg RECTAL .PRN X 1 PRN PRN Reason: Constipation Buspirone HCl (Buspar) 5 mg PO TID [facility] Last Admin: 12/04/19 05:08 Dose: 5 mg Documented by: Carbamazepine (Tegretol) 200 mg PO DAILY@1700 [facility] Last Admin: 12/03/19 16:56 Dose: 200 mg Documented by: Carbamazepine (Tegretol) 100 mg PO DAILY@0800 [facility] Last Admin: 12/04/19 08:57 Dose: 100 mg Documented by: Cholecalciferol (Vitamin D) 2,000 unit PO DAILYCM [facility] Last Admin: 12/04/19 08:56 Dose: 2,000 unit Documented by: Famotidine (Pepcid) 20 mg PO BID [facility] Last Admin: 12/04/19 08:57 Dose: 20 mg Documented by: Fentanyl (Duragesic Patch) 12 mcg TRANSDERM. Q72H [facility] Last Admin: 12/03/19 14:46 Dose: 12 mcg Documented by: Sodium Chloride () 1,000 mls @ 100 mls/hr IV .Q10H [facility] Stop: 12/04/19 17:59 Last Admin: 12/04/19 08:58 Dose: 100 mls/hr Documented by: Magnesium Hydroxide (Milk Of Magnesia) 30 ml PO .PRN X 1 PRN PRN Reason: Constipation Last Admin: 12/01/19 09:34 Dose: 30 ml Documented by: Mupirocin (Bactroban) 1 applic TOPICAL BID [facility]; Protocol Last Admin: 12/03/19 22:22 Dose: 1 applicatio Documented by: Ondansetron HCl (Zofran Odt) 4 mg PO Q8H PRN PRN PRN Reason: NAUSEA Last Admin: 12/02/19 08:19 Dose: 4 mg Documented by: Oxycodone HCl (Oxyir) 10 mg PO Q4H PRN PRN PRN Reason: Pain Score 4-10/10 Last Admin: 11/30/19 19:49 Dose: 10 mg Documented by: Rivaroxaban (Xarelto) 10 mg PO DAILY@1700 [facility] Last Admin: 12/03/19 16:56 Dose: 10 mg Documented by: Senna/Docusate Sodium (Senokot-S, Nuria-Colace) 2 tablet PO BID [facility] Last Admin: 12/04/19 08:58 Dose: Not Given Documented by: Sodium Chloride () 10 - 40 ml IV UD PRN PRN Reason: SALINE FLUSH Last Admin: 12/03/19 22:38 Dose: 10 ml Documented by: Zolpidem Tartrate (Ambien (Generic)) 5 mg PO QHS PRN PRN PRN Reason: INSOMNIA Last Admin: 11/29/19 22:46 Dose: 5 mg Documented by: Assessment/Plan Right fibula fracture with displacement and medial joint space widening bruising and tenderness over deltoid suspicious of deltoid disruption. reCommend ORIF distal fibula with locking plate Recommend lace up Swede-O brace for left ankle sprain Weight bearing tolerated left lower extremity Non-weight bearing right lower extremity Patient is unsure whether she wants to proceed with surgical intervention or continued immobilization and nonweightbearing we will hold her Xarelto for now with plans for ORIF on Tuesday. She will let us know this evening her intents
[2019-12-04 14:47] LABS: Bacteria 0 SEEN /hpf (None Seen); Mucous, Urine 0 SEEN /hpf (<or=2+)
[2019-12-04] MEDS: Mupirocin Ointment 22gm Tube 1 APPLIC TOPICAL ×2 (14:52→21:36)
[2019-12-04 15:01] LABS: Color, Urine Yellow (Yellow); Glucose, Dipstick Normal (Normal); Ketone-Dipstick Negative (Negative); Leukocyte Esterase-Dipstick 500 /ul (Negative); Nitrite-Dipstick Positive (Negative); Occult Blood-Urine 250 /ul (Negative); Protein-Dipstick 15 mg/dl (Negative); Urine Bilirubin Dipstick Negative (Negative); Urine Clarity Clear (Clear); Urine Urobilinogen Normal (Normal); Urine pH 6.5 (5.0 - 8.0)
[2019-12-04 15:07] LABS: Red Blood Cells-Urine 25-50 SEEN /hpf (0-5); Squamous Epithelial Cells - UA 0-5 SEEN /hpf (5-10); White Blood Cells 25-50 SEEN /hpf (0-5)
[2019-12-04] MEDS: carBAMazepine 200 MG Tablet PO (17:41)
[2019-12-04] MEDS: levoFLOXacin 250 MG Tablet PO (18:11)
[2019-12-04 19:44] VITALS: BP 148/62; PULSE 67; RESP 18; TEMP 36.6; O2SAT 96
[2019-12-04] MEDS: Atenolol 50 MG Tablet PO (21:36)
[2019-12-04] MEDS: 0.9% Saline Lock 10 ML Syringe IV (21:36)
[2019-12-05] MEDS: busPIRone 5 MG Tablet PO ×3 (05:16→21:54)
[2019-12-05] MEDS: levoFLOXacin 250 MG Tablet PO (05:17)
[2019-12-05] MEDS: Acetaminophen 500 MG Tablet 1000 MG PO ×3 (05:17→21:53)
[2019-12-05 05:43] LABS: Hematocrit 33.1 % (37-47); Hemoglobin 10.8 g/dL (12.0-15.0)
[2019-12-05 06:00] VITALS: BP 120/59; BP 130/58; BP 133/65; PULSE 55; PULSE 58; PULSE 68
[2019-12-05 06:34] LABS: Anion Gap 4 (5-15); BUN 13 mg/dL (7-18); BUN/Creat Ratio 16.2 RATIO (10-20); Calcium,Total 8.5 mg/dL (8.5-10.1); Chloride 104 mmol/L (98-107); EST Glomerular Filtration Rate 74 mL/min (>60); Est Glom Filt Rate - Afr Amer 90 mL/min (>60); Estimated Creatinine Clearance 44.32 ml/min; Glucose 92 mg/dL (74-106); Potassium 4.6 mmol/L (3.5-5.1); Sodium Level 135 mmol/L (136-145)
[2019-12-05 08:48] VITALS: BP 120/59; PULSE 60; RESP 16; TEMP 36.7; O2SAT 95
[2019-12-05] MEDS: carBAMazepine 200 MG Tablet 100 MG PO (08:54)
[2019-12-05] MEDS: Famotidine 20 MG Tablet PO ×2 (08:55→21:54)
[2019-12-05] MEDS: Atenolol 25 MG Tablet PO (08:55)
[2019-12-05] MEDS: Mupirocin Ointment 22gm Tube 1 APPLIC TOPICAL ×2 (08:55→21:54)
[2019-12-05] MEDS: Senna/Docusate Sodium 1 Tablet 2 TABLET PO ×2 (08:57→21:53)
--- NOTE | 2019-12-05 09:40 | PN_ITS ---
Progress Note Day #2 Levaquin Afebile VSS -orthostatic vital signs are negative today. Maintaining appropriate oxygen saturation on RA Oral intake is good Good bowel function Discussed with nursing - no problems that need addressed Reviewed the PT/OT notes Medication list reviewed. Requiring no pain meds in addition to the Fentanyl and the scheduled Tylenol. All lab was personally reviewed. The hemoglobin is 10.8 today, down from 12.8 but this is likely secondary to 2 L of IV fluid and dilution. No obvious source of bleeding. BMP today shows a sodium of 135, up from 128 following 2 L of normal saline. Cortisol is not low. Calcium was within normal limits. A UA done on 12/04/2019 was positive for nitrites and had 25-50 RBCs and 25-50 WBCs per high-power field. Patient was seen in consult by Dr. Gibbons and he recommended surgery to the right ankle. The patient and her daughter are agreeable and surgery has been scheduled for Tuesday. Xarelto and aspirin are on hold. She tells me that the dysuria is improved following 1 dose of the Levaquin. Preliminary report on the urine culture is greater than 100,000 colonies of possible Pseudomonas species. She denies shortness of breath, cough, abdominal pain, constipation, diarrhea, nausea/vomiting. She did have a little lightheadedness when standing at physical therapy today. It was brief and has resolved. She slept well last night. Alert, oriented x3, sitting in the wheelchair eating lunch, no apparent distress Lungs-excellent air exchange and clear to auscultation Heart-regular rate and rhythm, no murmur Abdomen-soft, nontender, nondistended, no suprapubic tenderness with palpation, normal bowel sounds present no significant edema. no redness, purulent DC or odor of the small ischemic ulcer of the RLE No focal neurologic deficits Impressions 1. cystitis - possible pseudomonas, await the final culture report. Levaquin is obviously working since the dysuria is better and she has no N/V or flank pain. 2. Right fibula fracture with displacement and medial joint space widening- scheduled for ORIF with plate on 12/07/[address] Gibbons. She will be admitted to the acute care floor following surgery and when stable transferred back to inpatient rehab. 3. Hyponatremia-resolved with 2 L of normal saline. Patient was reminded to increase her fluid intake, especially in light of lightheadedness when standing today. Initiate SCDs on the left lower extremity since aspirin and Lovenox have been discontinued by Dr. Gibbons. STROKE Vital Signs/Narrative: Vital Signs Temp Pulse Pulse Pulse Pulse Resp BP 12/05/19 08:48 98.0 F 60 16 120/59 L 12/05/19 06:00 55 L 58 L 68 BP BP BP Pulse Ox 12/05/19 08:48 95 12/05/19 06:00 120/59 L 133/65 H 130/58 H Code Visit Inpatient E&M: 71544 Subs Hosp L2
[2019-12-05] MEDS: carBAMazepine 200 MG Tablet PO (17:24)
[2019-12-05] MEDS: 0.9% Saline Lock 10 ML Syringe IV (17:25)
[2019-12-05 21:50] VITALS: BP 140/69; PULSE 69; RESP 16; TEMP 36.6; O2SAT 99
[2019-12-05] MEDS: Atenolol 50 MG Tablet PO (21:54)
[2019-12-06] MEDS: 0.9% Saline Lock 10 ML Syringe IV ×2 (06:17→20:47)
[2019-12-06] MEDS: Acetaminophen 500 MG Tablet 1000 MG PO ×3 (06:17→20:45)
[2019-12-06] MEDS: levoFLOXacin 250 MG Tablet PO (06:18)
[2019-12-06] MEDS: busPIRone 5 MG Tablet PO ×3 (06:18→20:46)
[2019-12-06 07:52] VITALS: BP 141/84; PULSE 57; RESP 18; TEMP 36.6; O2SAT 99
[2019-12-06] MEDS: Mupirocin Ointment 22gm Tube 1 APPLIC TOPICAL ×2 (08:19→20:46)
[2019-12-06] MEDS: Famotidine 20 MG Tablet PO ×2 (08:20→20:46)
[2019-12-06] MEDS: Senna/Docusate Sodium 1 Tablet 2 TABLET PO ×2 (08:20→20:45)
[2019-12-06] MEDS: carBAMazepine 200 MG Tablet 100 MG PO (08:20)
[2019-12-06] MEDS: Atenolol 25 MG Tablet PO (08:21)
[2019-12-06] MEDS: oxyCODONE 5 MG Tablet 10 MG PO (10:40)
[2019-12-06] MEDS: carBAMazepine 200 MG Tablet PO (17:41)
[2019-12-06 18:55] VITALS: BP 147/67; PULSE 57; RESP 16; TEMP 36.6; O2SAT 98
[2019-12-06 20:44] VITALS: PULSE 65; O2SAT 97
[2019-12-06] MEDS: Atenolol 50 MG Tablet PO (20:47)
[2019-12-07] VITALS (11 sets, daily range): BP systolic 125–152; BP diastolic 40–72; PULSE 52–73; RESP 12–18; TEMP 36.4–37.3; O2SAT 95–99; BMI 31.0
[2019-12-07] MEDS: Acetaminophen 500 MG Tablet 1000 MG PO (06:32)
[2019-12-07] MEDS: levoFLOXacin 250 MG Tablet PO (06:32)
[2019-12-07] MEDS: Atenolol 25 MG Tablet PO (08:08)
[2019-12-07] MEDS: Lactated Ringers 1,000 ML 100 ML IV (11:38)
--- NOTE | 2019-12-07 11:50 | DS.PCM_ITS ---
Discharge Date and Diagnosis Date of Admission: 11/29/19 Date of Discharge: 12/07/19 - Primary Discharge Diagnosis Debility secondary to bilateral ankle fractures sustained in a fall Traumatic comminuted fracture of the right lateral malleolus Avulsion fracture of the left talus Hyponatremia-resolved with intravenous normal saline Vitamin D deficiency-started on a supplement Anxiety Pain secondary to BL ankle fractures Ischemic Ulcer RLE due to pressure from the boot strap Urinary tract infection secondary to pseudomonas aeruginosa sensitive to fluoroquinolones - Secondary Discharge Diagnosis Chronic Problems D[place] (obstructive sleep apnea) (Chronic) Untreated Mitral valve prolapse (Chronic) - on Atenolol GERD (gastroesophageal reflux disease) (Chronic) History of rheumatic fever as a child (Chronic) Obesity Rheumatic fever as a child Hospital Course and Treatment Imaging Results: Clinical Impression(s) from Imaging Studies Ankle X-Ray 12/03/19 15:59 IMPRESSION: Mildly displaced fracture of the distal fibula. Electronically Signed: Red Milner DO at 20:20 EST Tel [phone], Service support , Ankle X-Ray 12/03/19 15:59 IMPRESSION: Soft tissue swelling without visualized fracture or dislocation. Electronically Signed: Red Milner DO at 20:19 EST Tel [phone], Service support , Dr. Vamsi Gibbons - orthopedics Operations: None Procedures: None Summary of Care Provided: The pt is a 74-year-old female with a PMH of mitral valve prolapse, rheumatic fever as a child, GERD, DALLAS(not on CPAP), and obesity who was admitted to the Inpatient rehab unit at [facility] on 11/29/2019 for debility secondary to right lateral malleolar fracture and left talus fracture secondary to a fall for greater than 3 hours of therapy daily with a goal of returning home at or near prior level of independence. She lives at home by herself and has no steps. She was independent with ADL's, mobility and driving prior to hospitalization. She had a boot on the RLE and she was NWB on the RLE. She was WBAT on the LLE. Unable to ambulate initially due to pain. Dr. Shamar Ramires her saw her at [facility] and did not feel she was a surgical candidate. She told me that she has episodic lightheadedness when standing and feels as though she is going to pass out at times. When she fell causing the fractures of the ankles she was trying to get to the couch or the chair before she passed out. She did not lose consciousness but, she did fall and could not get up. She told me she gets sweaty prior to falling. She denied CP or SOB. She had a cardiac cath in the past and the coronaries were normal. She was on 75mg of Atenolol daily. She stated her HR used to be in the 60's all the time but, now it is in the 40's at times and mostly in the 50's. EKG in the ED at [facility] showed SB with a HR of 52, even with severe pain in the ankles. There was a first degree AVB but no significant ST or T wave changes and no BBB's. She was quite anxious initially and was not sleeping. Pain was not well controlled with oxycodone 10 mg. At night on 11/30 she had severe pain in the RLE and when the boot was removed she had less pain. PE the following morning showed a blister on the distal medial RLE secondary to a pressure ulcer. There was bruising around the blister but, no erythema, no increased warmth to touch and no purulent discharge. The blister broke open and she had a stage 2 pressure ulcer thought to be secondary to the boot straps being too tight. It was treated with Bactroban and a non-adherent dressing. It did not become infected. On 12/04 she complained of dysuria and a UA was ordered. The UA showed 25- 50 RBCs per high-power field, 25-50 WBCs per high-power field and it was nitrite positive. She was started on Levaquin 250 mg daily. The urine culture grew pseudomonas aeruginosa which was sensitive to ronal quinolones. On 12/03/2019 a sodium was low at 128 and the chloride was 95. The BUN was 10 with a creatinine of 0.85. A urine sodium and creatinine was obtained and the fractional excretion of sodium was calculated to be 0.3% which is consistent with prerenal etiology of the hyponatremia. She was given 2 L of NS and the follow up Sodium was 135 following fluids. Even following fluids she had lightheadedness at times while standing to do PT. I suspect this is related to beta blockade and the inability to increase the heart rate with exertion. She told me that efforts to decrease the Atenolol in past had lead to increased palpitations but , I wonder if this is not due to anxiety over decreasing the dose. She was started on Buspar 5 mg TID and her anxiety seems much better. She was unable to do therapy with Oxycodone PRN and so she was started on a F entanyl patch, 12 mcg and she has done very well with this. A vitamin D level was checked and it was low. Calcium was also low and she was started on Calcium and Vitamin D supplementation. If she has not had a bone density study I would recommended a DEXA as an OP following DC from the hospital/rehab. She decided not to follow up with Dr. Ramires and requested to be seen by Dr. Gibbons. A consult was placed with Dr. Gibbons and he felt she should have ORIF of the distal R fibula with a locking plate. The pt and her dtr were agreeable and she was scheduled for surgery on 12/07. Post operatively she will be admitted to the hospital. Alert , oriented X 3, Appropriate Lung - CTA Heart-regular rate and rhythm, no gallop, no MM and no click appreciated Abdomen-soft, nontender, nondistended, normal bowel sounds in all 4 quadrants The distal medial RLE has a localized area of increased bruising with a a stage 2 pressure ulcer more likely than not due to external pressure from the boot/straps. She has some calf tenderness on the right but, BL venous US's of the LE's were negative for DVT. This note was generated with [employer] dictation software. It may contain incorrect words, spelling, and punctuation that were not noted in checking the note before signing. - Physical Exam Vitals/I&O's: Vital Signs Temp Pulse Resp BP Pulse Ox 99.1 F 54 L 16 143/62 H 97 12/07/19 11:23 12/07/19 11:23 12/07/19 11:23 12/07/19 11:23 12/07/19 11:23 Oxygen Delivery Method Room Air Weight: 159 lb Body Mass Index (BMI) 31.0 Intake and Output for Last 24 Hours 12/05/19 12/06/19 12/07/19 23:59 23:59 23:59 Intake Total 1200 / 1200 2240 / 2240 Output Total 900 / 900 500 / 500 Balance 300 / 300 1740 / 1740 Microbiology Past 72 Hours 12/04/19 14:30 Urine, Catheterized Urine Culture - Final Pseudomonas aeroginosa Current Medications Lactated Ringer's () 1,000 mls @ 100 mls/hr IV .Q10H [facility] Last Admin: 12/07/19 11:38 Dose: 100 mls/hr Documented by: Home Medications: Medications to take at Discharge Acetaminophen [Tylenol] 1,000 mg PO Q8 tab 12/07/19 Atenolol [Tenormin (beta erma)] 25 mg PO QAM tab 12/07/19 Atenolol [Tenormin (beta erma)] 50 mg PO QPM tab 12/07/19 Bisacodyl [Dulcolax] 10 mg RECTAL .PRN X 1 PRN suppos. 12/07/19 Carbamazepine [Tegretol] 100 mg PO DAILY@0800 tab 12/07/19 Carbamazepine [Tegretol] 200 mg PO DAILY@1700 tab 12/07/19 Cholecalciferol (VIT D3) [Vitamin D3] 2,000 unit PO DAILYCM tab 12/07/19 Famotidine [Pepcid] 20 mg PO BID tab 12/07/19 Mag Hydrox/Al Hydrox/Simeth [Mylanta II] 30 ml PO Q6H PRN PRN udc 12/07/19 Magnesium Hydroxide [Milk Of Magnesia] 30 ml PO .PRN X 1 PRN udc 12/07/19 Mupirocin [Bactroban] 1 applic TOPICAL BID tube 12/07/19 Senna/Docusate Sodium [Senokot-S] 2 tab PO BID tab 12/07/19 Zolpidem Tartrate [Ambien] 5 mg PO QHS PRN PRN tab 12/07/19 busPIRone [Buspar] 5 mg PO TID tab 12/07/19 levoFLOXacin tablet [Levaquin tablet] 250 mg PO DAILY@0600 tab 12/07/19 Primary Care Physician: Orlando Sanchez DO [Primary Care Provider] - Disposition: Acute care Hospital - for ORIF of R distal fibula fracture Minutes spent on discharge:: 35 Patient Condition:: Good Medical Necessity - Tobacco Use Smoking Status: Never smoker Tobacco Use: Non-smoker Meaningful Use Info Meaningful Use Diagnoses (Choose all that apply): None applicable Code Visit Inpatient E&M: 84212 Disch Hosp
--- NOTE | 2019-12-07 12:30 | RAD_ITS ---
STUDY: X-RAY - RIGHT ANKLE REASON FOR EXAM: Female, 74 years old. ORIF LATERAL MALLEOLUS TECHNIQUE: Fluoroscopic assistance was provided to Dr. Gibbons. 4 fluoroscopic spot view(s) of the ankle are submitted. COMPARISON: 3 plain film views of the right ankle December 03, 2019 FINDINGS: Normal visualized distal tibia and medial malleolus. The fracture of the distal fibular metaphysis has been fixed in anatomic alignment by a lateral metal sideplate secured by numerous screws. Normal tibiotalar articulation and ankle mortise. Normal visualized talus and calcaneus. The visualized subtalar, talonavicular, calcaneocuboid and tarsal articulations are normal. Lucency and irregularity in the soft tissues lateral to the distal fibula consistent with an open surgical wound. RAD/Ankle min 3 Views IMPRESSION: Distal fibular fracture in anatomic alignment post-ORIF with lateral metal sideplate secured by screws. Electronically Signed: Migel Gooden MD at 17:43 EST , Service support ,
[2019-12-07] MEDS: Bupiv/Epi 0.25% 30 ML Vial (13:31)
--- NOTE | 2019-12-07 14:01 | PCM.OPRPT ---
Report of Operation Date of Procedure: 12/07/19 Description of Surgical Findings:: Preoperative diagnosis: Right distal fibula [place] B displaced fracture Postoperative diagnosis: Same Procedure: ORIF right distal fibula Anesthesia: General EBL: 10 Complications: None Implants: Synthes distal fibular locking plate Condition: Able to PACU Indication for procedure: 74-year-old female patient with fall proximally 1 week ago that was residing in the rehab unit for this and I was consulted for the fracture did review her x-rays which demonstrated a displaced distal fibula fracture with medial clear space widening did recommend ORIF versus conservative treatment benefits alternatives alternatives of both were reviewed including risk of bleeding infection nerve, artery, bone, tissue damage, blood clot need for further surgery and continued pain. Procedure: Patient was met the preoperative holding area once again the operative extremity was then 5 by both patient and physician was marked. Patient was brought back to the operating room will car transfer the operative table supine position. Anesthesia was started well-padded tourniquet was placed on the right upper thigh. The patient was prepped and draped in the usual sterile fashion and a timeout was called to ensure the proper patient procedure and extremity were being contemplated. An Esmarch was used to exsanguinate the extremity and the tourniquet was inflated to 300 mmHg. A 15 blade scalpel was used to make a posterior lateral incision to the distal fibula this was carried down through the skin and subcutaneous tissue electrocautery was used. Full-thickness flaps were elevated to the bone fracture site was evaluated and was cleared of hematoma and debris with a curette and irrigation was used [id number] reduction clamp was used to reduce the fracture while a locking plate was slid underneath this was checked under fluoroscopy for positioning of plate and fracture reduction the plate was secured to the shaft with a cortical screw followed by sequential cortical screws in the proximal aspect of the plate. This was followed by 2 locking screws in the distal end of the plate Brookings test was performed to ensure no syndesmotic instability. The medial joint space was symmetric with the remainder of the ankle mortise in both AP and mortise views fluoroscopic images were saved to the PACS system the wound was thoroughly irrigated and was closed with 0 Vicryl followed by 2-0 Vicryl subcutaneous tissue followed by 3-0 nylon vertical mattress stitches followed by an injection of quarter percent Marcaine with epinephrine followed by Xeroform 4 x 4 ABD web roll bulky Patel dressing stirrup splint and posterior slab splint followed by an Corey wrap. Patient tolerated the procedure well she was transferred the PACU in stable condition. All counts were correct. Patient will be admitted to the hospitalist service and then return to the rehab unit she will be nonweightbearing in the right lower extremity. Recommend ice and elevation times next 2 weeks when not working with therapy or ambulating. She will leave her splint on for 2 weeks and we will remove the sutures at that point and convert her to a boot versus cast.
== END 2019-12-07 10:55 | disposition short-term general hospital (02) | DRG 493 ==
PROVIDERS: Orthopaedic Surgery; Admitting Provider Internal Medicine; PCP Family Medicine; Referring Provider Internal Medicine; Visit Provider Internal Medicine
PROC: 0QSJ04Z Reposition Right Fibula with Internal Fixation Device, Open Approach (ICD-10-PCS; principal; 2019-12-07 11:40)
DX: S82.61XA Displaced fracture of lateral malleolus of right fibula, initial encounter for closed fracture (principal); E87.1 Hypo-osmolality and hyponatremia; S92.152A Displaced avulsion fracture (chip fracture) of left talus, initial encounter for closed fracture; G47.33 Obstructive sleep apnea (adult) (pediatric); K21.9 Gastro-esophageal reflux disease without esophagitis; I44.0 Atrioventricular block, first degree; W19.XXXA Unspecified fall, initial encounter; Z86.19 Personal history of other infectious and parasitic diseases; E55.9 Vitamin D deficiency, unspecified; L89.892 Pressure ulcer of other site, stage 2; F41.9 Anxiety disorder, unspecified; N30.90 Cystitis, unspecified without hematuria; B96.5 Pseudomonas (aeruginosa) (mallei) (pseudomallei) as the cause of diseases classified elsewhere; E66.9 Obesity, unspecified; Z68.31 Body mass index [BMI] 31.0-31.9, adult; Z71.3 Dietary counseling and surveillance
CPT/HCPCS: 36415; 73610; 76000; 80048; 80053; 80156; 81001; 82306; 82533; 82570; 82962; 83735; 84300; 84443; 85014; 85018; 85027; 87077; 87086; 87088; 87184; 87186; 93971; 97110; 97116; 97163; 97166; 97530; 97535; 97542; C1713; J7030; J7120; A4216; J2405

== ENCOUNTER 2019-12-07 15:36 | Inpatient (IN) | payer MEDICARE, SELFPAY ==
[2019-12-07 11:23] VITALS: BMI 31.0
--- NOTE | 2019-12-07 11:58 | CASEMGMT ---
Social Work Note Pt from from [facility]. Per Physician on RU plan is for pt to return to [facility] Tuesday. 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
[2019-12-07 16:00] VITALS: BP 144/70; PULSE 69; RESP 18; TEMP 37.2; O2SAT 96; BMI 31.0
[2019-12-07] MEDS: 0.9% Normal Saline 1,000 ML 100 ML IV (16:56)
[2019-12-07 18:00] VITALS: BP 145/62; PULSE 66; RESP 16; TEMP 37.1; O2SAT 97
--- NOTE | 2019-12-07 19:10 | PCM.CONS.GEN ---
Problem List (1) Closed fracture of right distal fibula Status: Acute (2) S/P ORIF (open reduction internal fixation) fracture Status: Acute Comment: R distal fibula fracture by Dr. Gibbons on 12/07/19 (3) Anxiety Status: Chronic (4) GERD (gastroesophageal reflux disease) Status: Chronic (5) History of rheumatic fever as a child Status: Chronic (6) Mitral valve prolapse Status: Chronic (7) DALLAS (obstructive sleep apnea) Status: Chronic Comment: Untreated (8) Pressure ulcer caused by device Status: Acute Comment: distal right medial leg due to straps on the boot - stage 2. stable Reason for Consult Date of Consultation: 12/07/19 Reason for Consultation: post op medical management History of Present Illness: The patient is a 74 year old F with a past medical history of mitral valve prolapse, rheumatic fever as a child, anxiety, GERD, DALLAS (not on CPAP secondary to intolerance), obesity, Pseudomonas urinary tract infection on Levaquin, and recent distal right fibular fracture secondary to a fall. She also sustained a avulsion fracture of the talus on the left. She was taken to the OR on 12/07/[address] Gibbons for ORIF of the right fibula fracture. She was seen and examined post op. She is alert, oriented X 3 and appropriate. She thinks there is a wrinkle in the dressing of the RLE. Pain is mild at the present time and she has no nausea. Current vital signs are temperature 98.8, pulse rate 66, blood pressure 145/62, respiratory rate 16 and she is 97% saturated on room air. She denies chest pain, shortness of breath, palpitations, nausea, abdominal pain and her pain is mild. when she was recently in the rehab unit her pain was not controlled with Oxycodone 10 mg Q 4H PRN and she has been on a Fentanyl patch, 12 mcg with excellent pain control. She is anxious and she was started on Buspar in the rehab unit which has also helped with performance in therapy and with complaints of nausea, pain, lightheadedness and palpitations. She will be non-weight bearing on the RLE and WBAT on the LLE. Past Medical History Past Medical History (Chronic Problems): Chronic Problems DALLAS (obstructive sleep apnea) (Chronic) Untreated Mitral valve prolapse (Chronic) GERD (gastroesophageal reflux disease) (Chronic) History of rheumatic fever as a child (Chronic) Anxiety (Chronic) Allergies codeine Allergy (Verified 12/07/19 11:29) Unknown Home Medications: Ambulatory Orders Medication Instructions Recorded Acetaminophen [Tylenol] 1,000 mg PO Q8 tab 12/07/19 Atenolol [Tenormin (beta sagrario)] 25 mg PO QAM tab 12/07/19 Atenolol [Tenormin (beta sagrario)] 50 mg PO QPM tab 12/07/19 Bisacodyl [Dulcolax] 10 mg RECTAL .PRN X 1 PRN suppos. 12/07/19 Carbamazepine [Tegretol] 100 mg PO DAILY@0800 tab 12/07/19 Carbamazepine [Tegretol] 200 mg PO DAILY@1700 tab 12/07/19 Cholecalciferol (VIT D3) [Vitamin 2,000 unit PO DAILYCM tab 12/07/19 D3] Famotidine [Pepcid] 20 mg PO BID tab 12/07/19 Mag Hydrox/Al Hydrox/Simeth 30 ml PO Q6H PRN PRN udc 12/07/19 [Mylanta II] Magnesium Hydroxide [Milk Of 30 ml PO .PRN X 1 PRN udc 12/07/19 Magnesia] Mupirocin [Bactroban] 1 applic TOPICAL BID tube 12/07/19 Senna/Docusate Sodium [Senokot-S] 2 tab PO BID tab 12/07/19 Zolpidem Tartrate [Ambien] 5 mg PO QHS PRN PRN tab 12/07/19 busPIRone [Buspar] 5 mg PO TID tab 12/07/19 levoFLOXacin tablet [Levaquin 250 mg PO DAILY@0600 tab 12/07/19 tablet] Surgical History: cholecystectomy, - - Tubal ligation, ORIF of R fibula fx 12/07/19 Psychiatric History: Anxiety [employer] History: No pertinent [employer] history Lives: Alone Smoking Status: Never smoker Tobacco Use: Non-smoker Alcohol: None Drugs: None - *Family History Maternal History Items: Cancer - Her mother at the age of 45 from colon cancer Paternal History Items: - - Father of congestive heart failure Review of Systems Constitutional: Denies: Chills, Fever, Weight Change Eyes: Denies: Blurred vision HEENT: Denies: Difficulty Swallowing, Head Aches, Sinus Congestion, Sinus Drainage, Sore Throat Cardiovascular: Denies: Chest Pain, Light Headedness, Palpitations Respiratory: Denies: Cough, Shortness of Breath, Shortness of breath at rest, Sputum production Gastrointestinal: Denies: Abdominal Pain, Constipation, Diarrhea, Nausea, Vomiting Genitourinary: Denies: Dysuria - resolved after 2 doses of Levaquin Gynecological: Denies: Breast symptoms, Vaginal discharge Musculoskeletal: Reports: Leg Pain - BL LE's due to recent traumatic fractures and the ORIF today. Denies: Joint Tenderness Skin: Denies: Rash, Wounds Neurological: Denies: Change in Speech, Slurred speech, Difficulty swallowing, Focal weakness, Numbness, Tingling, Tremor, Seizures Psychiatric: Denies: Anxiety, Depression, Homicidal Ideations, Suicidal Ideations Endocrine: Denies: Change in Body Habitus, Hx of Thyroiditis Hematologic/ Lymphatic: Denies: Easy Bruising, Easy Bleeding, Hx of blood clot Patient Problems: Active and Suspected Problems Closed fracture of right distal fibula (Acute) S/P ORIF (open reduction internal fixation) fracture (Acute) R distal fibula fracture by Dr. Gibbons on 12/07/19 Pressure ulcer caused by device (Acute) distal right medial leg due to straps on the boot - stage 2. stable - Physical Exam Vitals/I&O's: Vital Signs Temp Pulse Resp BP Pulse Ox 98.8 F 66 16 145/62 H 97 12/07/19 18:00 12/07/19 18:00 12/07/19 18:00 12/07/19 18:00 12/07/19 18:00 Oxygen Delivery Method Room Air Weight: 159 lb Body Mass Index (BMI) 31.0 Intake and Output for Last 24 Hours 12/05/19 12/06/19 12/07/19 23:59 23:59 23:59 Intake Total 200 / 200 Output Total 250 / 250 Balance -50 / -50 General: Alert, Oriented x3, Cooperative, No apparent distress, Well developed, Well nourished, - - sitting up in bed HEENT: Atraumatic, PERRLA, EOMI, Normocephalic Oral: Moist Mucosa, No Gingival or Mucosal Lesions/ Ulcerations Neck: Supple, No JVD, Negative Carotid Bruits, No Nodes, Trachea Midline, - - Brisk carotid upstroke with excellent pulse volume Lungs: Clear to auscultation, Normal air movement Cardiovascular: Regular rate, Regular Rhythm, Normal S1, Normal S2, No murmurs, No Ectopic Activity, No rub noted, No Gallop, - - No mitral click Abdomen: Bowel Sounds Present, Soft, Non Tender, Non-Distended, Obese, - - No guarding with palpation Extremities: No clubbing, No cyanosis, Capillary Refill Less than 3 Seconds, No Calf Tenderness - She had recent BL venous US's on the legs and they were negative for DVT, - - the toes on the right are numb but, they are warm. Skin: No rashes, - - the pressure ulcer on the distal medial RLE is covered up by the cast but, it has been stable with no evidence of infection Musculoskeletal: No Muscle Wasting Neurological: Cranial nerves II-XII grossly intact, Neuro grossly intact Psych/Mental Status: Normal Affect, Appropriate - much less anxious since the Buspar was started Current Medications Acetaminophen (Tylenol) 1,000 mg PO Q8 [facility] Al Hydroxide/Mg Hydroxide (Mylanta Ii) 30 ml PO Q6H PRN PRN PRN Reason: INDIGESTION Atenolol (Tenormin (Beta Sagrario)) 25 mg PO DAILY [facility] Atenolol (Tenormin (Beta Sagrario)) 50 mg PO DAILY [facility] Bisacodyl (Dulcolax) 10 mg RECTAL DAILY PRN PRN Reason: Constipation Buspirone HCl (Buspar) 5 mg PO TID [facility] Carbamazepine (Tegretol) 100 mg PO DAILY@0800 [facility] Carbamazepine (Tegretol) 200 mg PO DAILY@1700 [facility] Famotidine (Pepcid) 20 mg PO BID [facility] Fentanyl (Duragesic Patch) 12 mcg TRANSDERM. Q3D [facility] Sodium Chloride () 1,000 mls @ 100 mls/hr IV .Q10H [facility] Last Admin: 12/07/19 16:56 Dose: 100 mls/hr Documented by: Levofloxacin (Levaquin Tablet) 250 mg PO DAILY@0600 [facility] Stop: 12/11/19 06:01 Magnesium Hydroxide (Milk Of Magnesia) 30 ml PO DAILY PRN PRN Reason: Constipation Ondansetron HCl (Zofran) 4 mg IV Q6H PRN PRN PRN Reason: NAUSEA/VOMITING Oxycodone HCl (Oxyir) 10 mg PO Q4H PRN PRN PRN Reason: Pain Score 4-10/10 Senna/Docusate Sodium (Senokot-S, Nuria-Colace) 2 tablet PO BID [facility] Sodium Chloride () 10 - 40 ml IV UD PRN PRN Reason: SALINE FLUSH Zolpidem Tartrate (Ambien (Generic)) 5 mg PO QHS PRN PRN PRN Reason: SLEEP Assessment/Plan All Active Problems Closed fracture of right distal fibula (Acute) S/P ORIF (open reduction internal fixation) fracture (Acute) Pressure ulcer caused by device (Acute) Impressions 1. Status post ORIF of traumatic distal right fibula fracture I Dr. Gibbons on 12/07/2019 2. Left avulsion fracture of the talus vs sprain.......it is not obvious on the XRAYs obtained at [facility] but, it was reported on the initial x-ray she had at [facility] after the initial fall 3. Mitral valve prolapse 4. DALLAS-untreated, intolerant of CPAP mask 5. [id number] on BuSpar at this time 6. GERD 7. Cystitis secondary to Pseudomonas aeruginosa sensitive to fluoroquinolones - continue the antibiotic for 4 more days due to the hardware placed today. Med list was reviewed and updated. Will continue with the Fentanyl patch for 3 days and then transition to Oxycodone PRN. Continue Buspar. Check lab in the AM.......recently had hyponatremia with a fractional excretion of sodium of 0.3%. Resolved with IV normal saline. She is on Atenolol 75mg daily and she often has a HR in the 50's and has episodic near syncope at home and now it has resulted in ankle fractures. Consider decreasing the atenolol to 25 mg BID. Will need to discuss with Dr. Gibbons in the AM what he would like to use for DVT prophylaxis. Will order TEDS and SCD's to the [facility]. Code Visit Inpatient E&M: 66499 Subs Hosp L2
--- NOTE | 2019-12-07 19:31 | NURSING ---
pt started in RU unit then sent to surgery then admitted to med/surg unit.
[2019-12-07 20:00] VITALS: BP 144/58; PULSE 70; RESP 18; TEMP 36.6; O2SAT 97
[2019-12-07] MEDS: Famotidine 20 MG Tablet PO (21:37)
[2019-12-07] MEDS: Acetaminophen 500 MG Tablet 1000 MG PO (21:37)
[2019-12-07] MEDS: busPIRone 5 MG Tablet PO (21:37)
[2019-12-07] MEDS: Senna/Docusate Sodium 1 Tablet 2 TABLET PO (21:38)
[2019-12-07] MEDS: oxyCODONE 5 MG Tablet 10 MG PO (21:38)
[2019-12-07] MEDS: 0.9% Saline Lock 10 ML Syringe IV (21:38)
[2019-12-08 02:20] VITALS: BP 140/57; PULSE 84; RESP 18; TEMP 36.7; O2SAT 95
[2019-12-08] MEDS: 0.9% Normal Saline 1,000 ML 100 ML IV (02:22)
[2019-12-08] MEDS: Acetaminophen 500 MG Tablet 1000 MG PO ×3 (05:23→21:08)
[2019-12-08] MEDS: busPIRone 5 MG Tablet PO ×3 (05:25→21:08)
[2019-12-08] MEDS: levoFLOXacin 250 MG Tablet PO (05:31)
[2019-12-08 07:16] LABS: Hematocrit 30.5 % (37-47); Hemoglobin 10.3 g/dL (12.0-15.0); Mean Corp Hgb Conc 33.8 g/dL (32-36); Mean Corpuscular Hgb 30.7 pg (27.0-32.0); Mean Corpuscular Volume 90.8 fL (81-99); Mean Platelet Vol. 9.5 fl (6.2-12.0); Platelet Count 270 K/mm3 (150-450); RBC Distribution Width CV 12.5 % (11.6-14.6); RBC Distribution Width SD 41.2 fl (35.1-43.9); Red Blood Count 3.36 M/mm3 (4.2-5.4); White Blood Count 7.1 K/mm3 (4.4-11.0)
[2019-12-08 07:54] LABS: AST(SGOT) 34 U/L (15-37); Alanine Aminotransfer ALT/SGPT 56 U/L (13-56); Albumin, Serum 2.9 g/dL (3.2-5.0); Alkaline Phosphatase 113 U/L (45-117); Anion Gap 3 (5-15); BUN 11 mg/dL (7-18); BUN/Creat Ratio 13.4 RATIO (10-20); Calcium,Total 8.5 mg/dL (8.5-10.1); Chloride 106 mmol/L (98-107); Creatinine, Serum 0.82 mg/dL (0.55-1.02); EST Glomerular Filtration Rate 72 mL/min (>60); Est Glom Filt Rate - Afr Amer 88 mL/min (>60); Estimated Creatinine Clearance 43.23 ml/min; Globulin 2.8 g/dL (2.2-4.2); Glucose 84 mg/dL (74-106); Magnesium 2.1 mg/dL (1.6-2.6); Phosphorus 3.7 mg/dL (2.5-4.9); Potassium 4.5 mmol/L (3.5-5.1); Protein, Total 5.7 g/dL (6.4-8.2); Sodium Level 137 mmol/L (136-145)
[2019-12-08 08:20] VITALS: BP 128/44; PULSE 65; RESP 18; TEMP 36.8; O2SAT 96
[2019-12-08] MEDS: oxyCODONE 5 MG Tablet 10 MG PO ×4 (08:47→21:10)
[2019-12-08] MEDS: Senna/Docusate Sodium 1 Tablet 2 TABLET PO ×2 (08:48→21:08)
[2019-12-08] MEDS: Famotidine 20 MG Tablet PO ×2 (08:49→21:09)
[2019-12-08] MEDS: Morphine 2 MG/ML Syringe 1 MG IV (10:04)
[2019-12-08] MEDS: 0.9% Saline Lock 10 ML Syringe IV ×5 (10:04→22:47)
[2019-12-08] MEDS: CARBAMAZEPINE 100 MG TAB.CHEW PO (11:21)
[2019-12-08] MEDS: Atenolol 25 MG Tablet PO (11:25)
--- NOTE | 2019-12-08 11:38 | PCM.PN.HOSP ---
Patient Problems: Active and Suspected Problems Closed fracture of right distal fibula (Acute) S/P ORIF (open reduction internal fixation) fracture (Acute) R distal fibula fracture by Dr. Gibbons on 12/07/19 Pressure ulcer caused by device (Acute) distal right medial leg due to straps on the boot - stage 2. stable Reason for Visit: Follow-up on ORIF right fibular fracture Subjective: Patient was seen and examined. Complains of pain in her lower extremity. Was recently medicated for pain. Denied any chest pain or dyspnea. No acute events overnight. Vitals/I&O's: Vital Signs Temp Pulse Resp BP Pulse Ox 98.2 F 65 18 128/44 H 96 12/08/19 08:20 12/08/19 08:20 12/08/19 08:20 12/08/19 08:20 12/08/19 08:20 Oxygen Delivery Method Room Air Weight: 72.121 kg Body Mass Index (BMI) 31.0 Intake and Output for Last 24 Hours 12/06/19 12/07/19 12/08/19 23:59 23:59 23:59 Intake Total 200 / 200 1260.00 / 1260.00 Output Total 250 / 1450 1850 / 1850 Balance -50 / -1250 -590.00 / -590.00 General: Alert, Oriented x3, Cooperative, - - In mild pain, not on oxygen HEENT: Atraumatic, PERRLA, EOMI, Normocephalic Oral: Moist Mucosa Neck: Supple Lungs: Clear to auscultation, Normal air movement Cardiovascular: Regular rate, Regular Rhythm, Normal S1, Normal S2 Abdomen: Bowel Sounds Present, Soft, Non Tender, Non-Distended, No Hepato-splenomegaly Extremities: No edema, - - Right lower leg in cast and dressing Skin: No rashes, No breakdown Musculoskeletal: No Tenderness to Palpation of Joints or Extremities Lymphatic: No Cervical, Supraclavicular, or Inguinal Adenopathy Neurological: Cranial nerves II-XII grossly intact, Neuro grossly intact Psych/Mental Status: Normal Affect, Appropriate Laboratory Results 12/08/19 06:29: WBC 7.1, RBC 3.36 L, Hgb 10.3 L, Hct 30.5 L, MCV 90.8, MCH 30.7, MCHC 33.8, RDW Std Deviation 41.2, RDW Coeff of Tamela 12.5, Plt Count 270, MPV 9.5 12/08/19 06:29: Sodium 137, Potassium 4.5, Chloride 106, Carbon Dioxide 28.0, Anion Gap 3 L, BUN 11, Creatinine 0.82, Estim Creat Clear Calc 43.23, Est GFR (MDRD) Af Amer 88, Est GFR (MDRD) Non-Af 72, BUN/Creatinine Ratio 13.4, Glucose 84, Calcium 8.5, Phosphorus 3.7, Magnesium 2.1, Total Bilirubin 0.40, AST 34, ALT 56, Alkaline Phosphatase 113, Total Protein 5.7 L, Albumin 2.9 L, Globulin 2.8, Albumin/Globulin Ratio 1.0 Current Medications Acetaminophen (Tylenol) 1,000 mg PO Q8 [facility] Last Admin: 12/08/19 05:23 Dose: 1,000 mg Documented by: Al Hydroxide/Mg Hydroxide (Mylanta Ii) 30 ml PO Q6H PRN PRN PRN Reason: INDIGESTION Atenolol (Tenormin (Beta Sagrario)) 25 mg PO DAILY [facility] Last Admin: 12/08/19 11:25 Dose: 25 mg Documented by: Atenolol (Tenormin (Beta Sagrario)) 50 mg PO DAILY [facility] Bisacodyl (Dulcolax) 10 mg RECTAL DAILY PRN PRN Reason: Constipation Buspirone HCl (Buspar) 5 mg PO TID [facility] Last Admin: 12/08/19 05:25 Dose: 5 mg Documented by: Carbamazepine (Tegretol) 200 mg PO DAILY@1700 [facility] Carbamazepine (Carbamazepine) 100 mg PO DAILY@0800 [facility] Last Admin: 12/08/19 11:21 Dose: 100 mg Documented by: Famotidine (Pepcid) 20 mg PO BID [facility] Last Admin: 12/08/19 08:49 Dose: 20 mg Documented by: Fentanyl (Duragesic Patch) 12 mcg TRANSDERM. Q3D [facility] Sodium Chloride () 1,000 mls @ 100 mls/hr IV .Q10H [facility] Last Infusion: 12/08/19 11:18 Dose: Infused Documented by: Levofloxacin (Levaquin Tablet) 250 mg PO DAILY@0600 [facility] Stop: 12/11/19 06:01 Last Admin: 12/08/19 05:31 Dose: 250 mg Documented by: Magnesium Hydroxide (Milk Of Magnesia) 30 ml PO DAILY PRN PRN Reason: Constipation Ondansetron HCl (Zofran) 4 mg IV Q6H PRN PRN PRN Reason: NAUSEA/VOMITING Oxycodone HCl (Oxyir) 10 mg PO Q4H PRN PRN PRN Reason: Pain Score 4-10/10 Last Admin: 12/08/19 09:21 Dose: 5 mg Documented by: Senna/Docusate Sodium (Senokot-S, Nuria-Colace) 2 tablet PO BID [facility] Last Admin: 12/08/19 08:48 Dose: 2 tablet Documented by: Sodium Chloride () 10 - 40 ml IV UD PRN PRN Reason: SALINE FLUSH Last Admin: 12/08/19 10:07 Dose: 10 ml Documented by: Zolpidem Tartrate (Ambien (Generic)) 5 mg PO QHS PRN PRN PRN Reason: SLEEP STROKE Vital Signs/Narrative: Vital Signs Temp Pulse Resp BP Pulse Ox 12/08/19 08:20 98.2 F 65 18 128/44 H 96 Medical Necessity - Tobacco Use Smoking Status: Never smoker Tobacco Use: Non-smoker Assessment/Plan All Active Problems Closed fracture of right distal fibula (Acute) S/P ORIF (open reduction internal fixation) fracture (Acute) Pressure ulcer caused by device (Acute) 1. POD #1, status post ORIF of traumatic distal right fibula fracture Pain is uncontrolled on fentanyl patch, oxycodone. Will add morphine IV 2mg q3 prn for breakthrough pain 2. Hypertension/mitral valve prolapse/D[place]-untreated, intolerant of CPAP mask 3. Anxiety, continue on Buspar 6. GERD, continue on famotidine 7. Recent cystitis secondary to Pseudomonas aeruginosa, On levaquin, continue same as planned for 4 more days. 8. DVT PPx- Per orthopedics Code Visit Inpatient E&M: 53868 Subs Hosp L2
[2019-12-08] MEDS: Morphine 2 MG/ML Syringe IV ×3 (12:29→22:47)
[2019-12-08 14:23] VITALS: BP 135/44; PULSE 70; RESP 18; TEMP 37.2; O2SAT 99
--- NOTE | 2019-12-08 16:17 | NURSING ---
Aware of Vital Signs that were taken at 1420 by Beulah Chavez RN.
[2019-12-08] MEDS: carBAMazepine 200 MG Tablet PO (18:42)
--- NOTE | 2019-12-08 18:44 | NURSING ---
This nurse wanted to get pt up at 1815 out of bed into chair since had oxyir at 1648. Pt was having pain again, just started. This nurse Toileted pt and then gave morphine to help with the pain.
[2019-12-08 20:23] VITALS: BP 125/45; PULSE 71; RESP 16; TEMP 36.4; O2SAT 98
[2019-12-09 02:15] VITALS: BP 123/48; PULSE 72; RESP 16; TEMP 37.1; O2SAT 95
[2019-12-09] MEDS: oxyCODONE 5 MG Tablet 10 MG PO ×4 (03:29→18:08)
[2019-12-09] MEDS: levoFLOXacin 250 MG Tablet PO (05:40)
[2019-12-09] MEDS: Acetaminophen 500 MG Tablet 1000 MG PO ×3 (05:40→20:51)
[2019-12-09] MEDS: busPIRone 5 MG Tablet PO ×3 (05:40→20:52)
[2019-12-09] MEDS: CARBAMAZEPINE 100 MG TAB.CHEW PO (08:35)
[2019-12-09] MEDS: Famotidine 20 MG Tablet PO ×2 (08:35→20:52)
[2019-12-09] MEDS: Senna/Docusate Sodium 1 Tablet 2 TABLET PO (08:35)
[2019-12-09] MEDS: Atenolol 50 MG Tablet PO (08:36)
[2019-12-09] MEDS: Atenolol 25 MG Tablet PO (08:36)
[2019-12-09 08:38] VITALS: BP 138/57; PULSE 74; RESP 18; TEMP 37.2; O2SAT 96
[2019-12-09] MEDS: Magnesium Hydroxide 30 ML UDC PO (08:51)
--- NOTE | 2019-12-09 10:01 | PN_ITS ---
Patient Problems: Active and Suspected Problems Closed fracture of right distal fibula (Acute) S/P ORIF (open reduction internal fixation) fracture (Acute) R distal fibula fracture by Dr. Gibbons on 12/07/19 Pressure ulcer caused by device (Acute) distal right medial leg due to straps on the boot - stage 2. stable Reason for Visit: Follow-up on ORIF right fibular fracture Subjective: Patient was seen and examined. Still has pain in her right lower extremity. Pain is better controlled than previous. Denied any fever chills or chest pain no progressive shortness of breath. Objective: Physical exam: General: Alert, Oriented x3, Cooperative,comfortable HEENT: Atraumatic, PERRLA, EOMI, Normocephalic Oral: Moist Mucosa Neck: Supple Lungs: Clear to auscultation, Normal air movement Cardiovascular: Regular rate, Regular Rhythm, Normal S1, Normal S2 Abdomen: Bowel Sounds Present, Soft, Non Tender, Non-Distended, No Hepato- splenomegaly Extremities: No edema, - - Right lower leg in cast and dressing Skin: No rashes, No breakdown Musculoskeletal: No Tenderness to Palpation of Joints or Extremities Lymphatic: No Cervical, Supraclavicular, or Inguinal Adenopathy Neurological: Cranial nerves II-XII grossly intact, Neuro grossly intact Psych/Mental Status: Normal Affect, Appropriate Vitals/I&O's: Vital Signs Temp Pulse Resp BP Pulse Ox 98.9 F 74 18 138/57 H 96 12/09/19 08:38 12/09/19 08:38 12/09/19 08:38 12/09/19 08:38 12/09/19 08:38 Oxygen Delivery Method Room Air Weight: 72.121 kg Body Mass Index (BMI) 31.0 Intake and Output for Last 24 Hours 12/07/19 12/08/19 12/09/19 23:59 23:59 23:59 Intake Total 200 / 200 2080.00 / 2680.00 840 / 840 Output Total 250 / 1450 3550 / 4000 900 / 900 Balance -50 / -1250 -1470.00 / -1320.00 -60 / -60 Current Medications Acetaminophen (Tylenol) 1,000 mg PO Q8 [facility] Last Admin: 12/09/19 05:40 Dose: 1,000 mg Documented by: Al Hydroxide/Mg Hydroxide (Mylanta Ii) 30 ml PO Q6H PRN PRN PRN Reason: INDIGESTION Atenolol (Tenormin (Beta Sagrario)) 25 mg PO DAILY [facility] Last Admin: 12/09/19 08:36 Dose: 25 mg Documented by: Atenolol (Tenormin (Beta Sagrario)) 50 mg PO DAILY [facility] Last Admin: 12/09/19 08:36 Dose: 50 mg Documented by: Bisacodyl (Dulcolax) 10 mg RECTAL DAILY PRN PRN Reason: Constipation Buspirone HCl (Buspar) 5 mg PO TID [facility] Last Admin: 12/09/19 05:40 Dose: 5 mg Documented by: Carbamazepine (Tegretol) 200 mg PO DAILY@1700 [facility] Last Admin: 12/08/19 18:42 Dose: 200 mg Documented by: Carbamazepine (Carbamazepine) 100 mg PO DAILY@0800 [facility] Last Admin: 12/09/19 08:35 Dose: 100 mg Documented by: Famotidine (Pepcid) 20 mg PO BID [facility] Last Admin: 12/09/19 08:35 Dose: 20 mg Documented by: Fentanyl (Duragesic Patch) 12 mcg TRANSDERM. Q3D [facility] Levofloxacin (Levaquin Tablet) 250 mg PO DAILY@0600 [facility] Stop: 12/11/19 06:01 Last Admin: 12/09/19 05:40 Dose: 250 mg Documented by: Magnesium Hydroxide (Milk Of Magnesia) 30 ml PO DAILY PRN PRN Reason: Constipation Last Admin: 12/09/19 08:51 Dose: 30 ml Documented by: Morphine Sulfate () 2 mg IV Q3H PRN PRN PRN Reason: Pain Score 6-10/10 Last Admin: 12/08/19 22:47 Dose: 2 mg Documented by: Ondansetron HCl (Zofran) 4 mg IV Q6H PRN PRN PRN Reason: NAUSEA/VOMITING Oxycodone HCl (Oxyir) 10 mg PO Q4H PRN PRN PRN Reason: Pain Score 4-10/10 Last Admin: 12/09/19 08:35 Dose: 10 mg Documented by: Senna/Docusate Sodium (Senokot-S, Nuria-Colace) 2 tablet PO BID [facility] Last Admin: 12/09/19 08:35 Dose: 2 tablet Documented by: Sodium Chloride () 10 - 40 ml IV UD PRN PRN Reason: SALINE FLUSH Last Admin: 12/08/19 22:47 Dose: 10 ml Documented by: Zolpidem Tartrate (Ambien (Generic)) 5 mg PO QHS PRN PRN PRN Reason: SLEEP STROKE Vital Signs/Narrative: Vital Signs Temp Pulse Resp BP Pulse Ox 12/09/19 08:38 98.9 F 74 18 138/57 H 96 Medical Necessity - Tobacco Use Smoking Status: Never smoker Tobacco Use: Non-smoker Assessment/Plan All Active Problems Closed fracture of right distal fibula (Acute) S/P ORIF (open reduction internal fixation) fracture (Acute) Pressure ulcer caused by device (Acute) 1. POD #2, status post ORIF of traumatic distal right fibula fracture Pain is fairly controlled on fentanyl patch, oxycodone, morphine prn PT/OT consulted. 2. Hypertension/mitral valve prolapse/[place]-untreated, intolerant of CPAP mask 3. Anxiety, continue on Buspar 6. GERD, continue on famotidine 7. Recent cystitis secondary to Pseudomonas aeruginosa, On levaquin, continue same as planned for 3 more days. 8. DVT PPx- Per orthopedics 9. Disposition: DC to acute rehab in am Code Visit Inpatient E&M: 61153 Subs Hosp L2
[2019-12-09 15:20] VITALS: BP 134/62; PULSE 70; RESP 18; TEMP 36.9; O2SAT 94
[2019-12-09] MEDS: carBAMazepine 200 MG Tablet PO (18:08)
[2019-12-09 20:35] VITALS: BP 124/46; PULSE 65; RESP 16; TEMP 37.2; O2SAT 95
[2019-12-10 03:39] VITALS: BP 119/49; PULSE 66; RESP 16; TEMP 36.7; O2SAT 96
[2019-12-10] MEDS: oxyCODONE 5 MG Tablet 10 MG PO ×2 (06:14→12:09)
[2019-12-10] MEDS: busPIRone 5 MG Tablet PO (06:14)
[2019-12-10] MEDS: levoFLOXacin 250 MG Tablet PO (06:14)
[2019-12-10] MEDS: Acetaminophen 500 MG Tablet 1000 MG PO (06:15)
[2019-12-10 08:15] VITALS: BP 125/56; PULSE 65; RESP 16; TEMP 36.5; O2SAT 98
[2019-12-10] MEDS: Famotidine 20 MG Tablet PO (08:15)
[2019-12-10] MEDS: Senna/Docusate Sodium 1 Tablet 2 TABLET PO (08:15)
[2019-12-10] MEDS: CARBAMAZEPINE 100 MG TAB.CHEW PO (08:15)
[2019-12-10] MEDS: Atenolol 25 MG Tablet PO (08:16)
[2019-12-10] MEDS: Atenolol 50 MG Tablet PO (08:16)
--- NOTE | 2019-12-10 11:05 | CASEMGMT ---
Social Work Note RAVINDER met with pt to confirm discharge plans. Pt is alert and orientated x3. Pt confirms that she came from and the plan is for pt to return to . RAVINDER placed a call to Adriana with , Adriana confirms pt is able to return to . Plan: once medically cleared Sammie Goyal PROGRAM SUPERVISOR, SPECIAL EDUCATION AIDE
--- NOTE | 2019-12-10 11:48 | PCM.TXEXTCAR ---
- Diet 12/07/19 17:36 Diet: Regular Diet - Routine Orders/Code Status Enema Type: Fleetz Enema Frequency: Daily PRN Suppository Type: Dulcolax 10mg Suppository Frequency: Daily PRN O2 Frequency: PRN Keep PO Greater than or Equal to (%): 90 - Wound(s) RLE Wound Type: Surgical Incision - Therapies Weight Bearing: Non weight bearing Physical Therapy: Eval and Treat Occupational Therapy: Eval and Treat - Allergies/Procedures Done in Hospital Allergies/Adverse Reactions: Allergies codeine Allergy (Verified 12/07/19 11:29) Unknown Procedures: None - Type of Care/Length of Stay Estimated LOS: Convalescent Care Less Than 30 days Type of Care Needed: Skilled Rehab Potential: Good Prognosis: Good - Additional Orders/Day of Discharge Additional Orders: per Dr Gibbons, to take PO aspirin 81mg bid x 2 weeks for DVT prophylaxis Day of Discharge: 12/10/19 - Follow Up Care Primary Care Physician: Orlando Sanchez DO [Primary Care Provider] - Please follow up with your Primary Care Physician in: one week Please Follow Up With: Vamsi Gibbons DO When: 1-2 weeks
--- NOTE | 2019-12-10 11:50 | PCM.DC.SUM ---
Discharge Date and Diagnosis - Problem List Patient Problems: Active and Suspected Problems Closed fracture of right distal fibula (Acute) S/P ORIF (open reduction internal fixation) fracture (Acute) R distal fibula fracture by Dr. Gibbons on 12/07/19 Pressure ulcer caused by device (Acute) distal right medial leg due to straps on the boot - stage 2. stable Date of Admission: 11/29/19 Date of Discharge: 12/10/19 - Primary Discharge Diagnosis Active and Suspected Problems Closed fracture of right distal fibula (Acute) S/P ORIF (open reduction internal fixation) fracture (Acute) R distal fibula fracture by Dr. Gibbons on 12/07/19 Pressure ulcer caused by device (Acute) distal right medial leg due to straps on the boot - stage 2. stable - Secondary Discharge Diagnosis Chronic Problems DALLAS (obstructive sleep apnea) (Chronic) Untreated Mitral valve prolapse (Chronic) GERD (gastroesophageal reflux disease) (Chronic) History of rheumatic fever as a child (Chronic) Anxiety (Chronic) Hospital Course and Treatment Operations: None, - - ORIF of right distal fibula Procedures: None Summary of Care Provided: The patient is a 74 year old F with a past medical history of DALLAS not on CPAP, GERD, mitral valve prolapse and childhood mitral valve prolapse. Patient was originally admitted to the inpatient rehab unit on 11/29/2023 debility due to right lateral malleolar fracture and left talus fracture due to a fall. Plan was to initially manage patient conservatively. She had a duplex done of the right lower extremity due to right calf pain which was negative for any DVT. Plan was for patient to have intensive physical therapy in the rehab unit. She was reviewed by Dr. jimenez in the rehab unit and he recommended that she have surgery. Patient was agreeable to this and her Xarelto and aspirin were held. Patient was therefore admitted to the [facility] on 12/07/2019 and had open reduction and internal fixation of the right distal fibula by Dr. Sam on 12/07/2019. Her postop course was not complicated and patient remained stable. On 12/10/2019, I discussed DVT prophylaxis for patient with KANA Sarmiento for Dr Gibbons (Dr Gibbons was not available). Per discussion, orthopedic surgery stated that per their protocol, such surgery such as the open reduction and internal fixation of the right fibula did not require DVT prophylaxis. Patient however was worried that she could get a DVT and so I discussed this further with orthopedic surgery (Donald Merrill, who discussed with Dr Gibbons on phone) and patient was started on p.o. aspirin 81 mg daily twice daily for 2 weeks. Patient received a dose before discharge. She is to follow-up with her primary care doctor with orthopedic surgery within 1 to 2 weeks. Patient seen and examined prior to discharge. She looked quite anxious. Pain was well controlled though she does complain of some mild pain in her thigh in the area above the right lower extremity splint. She denied any shortness of breath, fever chills, nausea vomiting or diarrhea. Review systems was otherwise negative. Labs and vitals reviewed. Home medications reviewed and reconciled. o/e: Vital Signs Height 5 ft Weight: 159 lb Weight in Pounds 159.0 lbs Pulse Ox 99 Temperature 98.3 F Pulse Rate 62 Respiratory Rate 16 Blood Pressure 128/49 Blood Pressure Position Semi-Fowlers General: Alert, Oriented x3, Cooperative,mildly anxious HEENT: Atraumatic, PERRLA, EOMI, Normocephalic Oral: Moist Mucosa Neck: Supple Lungs: Clear to auscultation, Normal air movement Cardiovascular: Regular rate, Regular Rhythm, Normal S1, Normal S2 Abdomen: Bowel Sounds Present, Soft, Non Tender, Non-Distended, No Hepato-splenomegaly Extremities: No edema, - - Right lower leg in cast and dressing Skin: No rashes, No breakdown Musculoskeletal: No Tenderness to Palpation of Joints or Extremities Lymphatic: No Cervical, Supraclavicular, or Inguinal Adenopathy Neurological: Cranial nerves II-XII grossly intact, Neuro grossly intact Psych/Mental Status: mildly anxious Plan is to discharge patient to rehab unit today. She was given a prescription for p.o. oxycodone 5 mg every 4 hours as needed for total of 20 tablets to last 3 days. He was also given a prescription for p.o. aspirin 81 mg twice daily for 2 weeks and she did receive a dose of p.o. aspirin 81 mg before she left for rehab. OARRS score was checked and no red flags were seen. Patient Problems: Active and Suspected Problems Closed fracture of right distal fibula (Acute) S/P ORIF (open reduction internal fixation) fracture (Acute) R distal fibula fracture by Dr. Gibbons on 12/07/19 Pressure ulcer caused by device (Acute) distal right medial leg due to straps on the boot - stage 2. stable - Physical Exam Vitals/I&O's: Vital Signs Temp Pulse Resp BP Pulse Ox 97.7 F L 65 16 125/56 H 98 12/10/19 08:15 12/10/19 08:15 12/10/19 08:15 12/10/19 08:15 12/10/19 08:15 Oxygen Delivery Method Room Air Weight: 159 lb Body Mass Index (BMI) 31.0 Intake and Output for Last 24 Hours 12/08/19 12/09/19 12/10/19 23:59 23:59 23:59 Intake Total 2080.00 / 2680.00 2610 / 2610 500 / 500 Output Total 3550 / 4000 901 / 901 1000 / 1000 Balance -1470.00 / -1320.00 1709 / 1709 -500 / -500 Current Medications Acetaminophen (Tylenol) 1,000 mg PO Q8 [facility] Last Admin: 12/10/19 06:15 Dose: 1,000 mg Documented by: Al Hydroxide/Mg Hydroxide (Mylanta Ii) 30 ml PO Q6H PRN PRN PRN Reason: INDIGESTION Atenolol (Tenormin (Beta Sagrario)) 25 mg PO DAILY [facility] Last Admin: 12/10/19 08:16 Dose: 25 mg Documented by: Atenolol (Tenormin (Beta Sagrario)) 50 mg PO DAILY [facility] Last Admin: 12/10/19 08:16 Dose: 50 mg Documented by: Bisacodyl (Dulcolax) 10 mg RECTAL DAILY PRN PRN Reason: Constipation Buspirone HCl (Buspar) 5 mg PO TID [facility] Last Admin: 12/10/19 06:14 Dose: 5 mg Documented by: Carbamazepine (Tegretol) 200 mg PO DAILY@1700 [facility] Last Admin: 12/09/19 18:08 Dose: 200 mg Documented by: Carbamazepine (Carbamazepine) 100 mg PO DAILY@0800 [facility] Last Admin: 12/10/19 08:15 Dose: 100 mg Documented by: Famotidine (Pepcid) 20 mg PO BID [facility] Last Admin: 12/10/19 08:15 Dose: 20 mg Documented by: Fentanyl (Duragesic Patch) 12 mcg TRANSDERM. Q3D [facility] Last Admin: 12/10/19 08:23 Dose: 12 mcg Documented by: Levofloxacin (Levaquin Tablet) 250 mg PO DAILY@0600 [facility] Stop: 12/11/19 06:01 Last Admin: 12/10/19 06:14 Dose: 250 mg Documented by: Magnesium Hydroxide (Milk Of Magnesia) 30 ml PO DAILY PRN PRN Reason: Constipation Last Admin: 12/09/19 08:51 Dose: 30 ml Documented by: Morphine Sulfate () 2 mg IV Q3H PRN PRN PRN Reason: Pain Score 6-10/10 Last Admin: 12/08/19 22:47 Dose: 2 mg Documented by: Ondansetron HCl (Zofran) 4 mg IV Q6H PRN PRN PRN Reason: NAUSEA/VOMITING Oxycodone HCl (Oxyir) 10 mg PO Q4H PRN PRN PRN Reason: Pain Score 4-10/10 Last Admin: 12/10/19 06:14 Dose: 10 mg Documented by: Senna/Docusate Sodium (Senokot-S, Nuria-Colace) 2 tablet PO BID [facility] Last Admin: 12/10/19 08:15 Dose: 2 tablet Documented by: Sodium Chloride () 10 - 40 ml IV UD PRN PRN Reason: SALINE FLUSH Last Admin: 12/08/19 22:47 Dose: 10 ml Documented by: Zolpidem Tartrate (Ambien (Generic)) 5 mg PO QHS PRN PRN PRN Reason: SLEEP Discharge Diet: Low fat/ Low Cholesterol Weight Bearing Status: Weight bearing as tolerated Call your doctor if you observe: Fever of 101 or Higher, Shortness of breath, Dizziness, Fainting spells, Chest pain, Uncontrolled pain Home Medications: Medications to take at Discharge Acetaminophen [Tylenol] 1,000 mg PO Q8 tab 12/07/19 Atenolol [Tenormin (beta sagrario)] 25 mg PO QAM tab 12/07/19 Atenolol [Tenormin (beta sagrario)] 50 mg PO QPM tab 12/07/19 Bisacodyl [Dulcolax] 10 mg RECTAL .PRN X 1 PRN suppos. 12/07/19 Carbamazepine [Tegretol] 100 mg PO DAILY@0800 tab 12/07/19 Carbamazepine [Tegretol] 200 mg PO DAILY@1700 tab 12/07/19 Cholecalciferol (VIT D3) [Vitamin D3] 2,000 unit PO DAILYCM tab 12/07/19 Famotidine [Pepcid] 20 mg PO BID tab 12/07/19 Mag Hydrox/Al Hydrox/Simeth [Mylanta II] 30 ml PO Q6H PRN PRN udc 12/07/19 Magnesium Hydroxide [Milk Of Magnesia] 30 ml PO .PRN X 1 PRN udc 12/07/19 Mupirocin [Bactroban] 1 applic TOPICAL BID tube 12/07/19 Senna/Docusate Sodium [Senokot-S] 2 tab PO BID tab 12/07/19 Zolpidem Tartrate [Ambien] 5 mg PO QHS PRN PRN tab 12/07/19 busPIRone [Buspar] 5 mg PO TID tab 12/07/19 Acetaminophen [Tylenol] 1,000 mg PO Q8 #20 tab 12/10/19 Aspirin [Aspirin, Baby] 81 mg PO BID #28 tab.chew 12/10/19 Oxycodone [Oxyir] 5 mg PO Q4H PRN PRN 3 Days #18 tab 12/10/19 levoFLOXacin tablet [Levaquin tablet] 250 mg PO DAILY@0600 #2 tab 12/10/19 Following Prescrptions Were Given to Patient: Aspirin [Aspirin, Baby] 81 mg PO BID #28 tab.chew Prescription Printed levoFLOXacin tablet [Levaquin tablet] 250 mg PO DAILY@0600 #2 tab Prescription Printed Oxycodone [Oxyir] 5 mg PO Q4H PRN PRN 3 Days #18 tab PRN Reason: Pain Score 4-10/10 Prescription Printed Acetaminophen [Tylenol] 1,000 mg PO Q8 #20 tab Prescription Printed Primary Care Physician: Orlando Sanchez DO [Primary Care Provider] - Please follow up with your Primary Care Physician in: one week Please Follow Up With: Vamsi Gibbons DO When: 1-2 weeks Disposition: [facility] facility Minutes spent on discharge:: 45 Patient Condition:: Stable Medical Necessity - Tobacco Use Smoking Status: Never smoker Tobacco Use: Non-smoker Meaningful Use Info Meaningful Use Diagnoses (Choose all that apply): None applicable Code Visit Inpatient E&M: 06526 Disch Hosp
[2019-12-10] MEDS: Aspirin 81 MG TAB.CHEW PO (12:48)
[2019-12-10 12:52] VITALS: BP 128/49; PULSE 62; RESP 16; TEMP 36.8; O2SAT 99
--- NOTE | 2019-12-10 14:36 | CHAPLAIN ---
Type of Pastoral Visit ___ Initial Visit _x__ Follow-up Visit ___ On-call Visit ___ General Patient Visit ___ Spiritual Assessment ___ Family Conference ___ Bereavement ___ Rapid Response ___ Code Blue ___ Other (describe below) Pastoral Care Referral From _x__ Patient ___ Family ___ Nurse ___ Physician ___ Stem Processing Machine Operator ___ Meterman ___ Other (describe below) Sacrament/Intervention ___ Active listening ___ Anointing ___ Spiritism ___ Bereavement ___ Communion ___ Orly exploration ___ ___ Life review ___ Prayer ___ Reconciliation ___ Sacrament of Sick _x__ Supportive presence ___ Wedding ___ Other (describe below) Pastoral Comments patient is going to be moved back to Rehab soon
== END 2019-12-10 14:35 | DRG 563 ==
PROVIDERS: Internal Medicine; Admitting Provider Orthopaedic Surgery; PCP Family Medicine; Referring Provider Orthopaedic Surgery; Visit Provider Student in an Organized Health Care Education/Training Program
DX: S82.61XA Displaced fracture of lateral malleolus of right fibula, initial encounter for closed fracture (principal); S92.152A Displaced avulsion fracture (chip fracture) of left talus, initial encounter for closed fracture; I34.1 Nonrheumatic mitral (valve) prolapse; G47.33 Obstructive sleep apnea (adult) (pediatric); F41.9 Anxiety disorder, unspecified; K21.9 Gastro-esophageal reflux disease without esophagitis; B96.5 Pseudomonas (aeruginosa) (mallei) (pseudomallei) as the cause of diseases classified elsewhere; N30.90 Cystitis, unspecified without hematuria; Z79.2 Long term (current) use of antibiotics; E66.9 Obesity, unspecified; Z98.890 Other specified postprocedural states; Z79.899 Other long term (current) drug therapy; Z68.31 Body mass index [BMI] 31.0-31.9, adult; Z79.891 Long term (current) use of opiate analgesic; I10 Essential (primary) hypertension; W18.30XA Fall on same level, unspecified, initial encounter; Y93.89 Activity, other specified; Y92.89 Other specified places as the place of occurrence of the external cause; Y99.8 Other external cause status
CPT/HCPCS: 36415; 73610; 76000; 80053; 83735; 84100; 85027; 97110; 97162; 97165; 97530; J7030; J7120; A4216; J2405

== ENCOUNTER 2019-12-10 14:40 | Inpatient (IN) | payer MEDICARE, SELFPAY ==
[2019-12-10 14:44] VITALS: BP 136/66; PULSE 63; RESP 16; TEMP 36.8; O2SAT 94; BMI 30.8
--- NOTE | 2019-12-10 14:53 | PCM.HP.STD ---
Problem List (1) Closed fracture of right distal fibula Status: Acute Qualifiers: Encounter type: subsequent encounter (2) Pressure ulcer caused by device Status: Acute Comment: distal right medial leg due to straps on the boot - stage 2. stable (3) S/P ORIF (open reduction internal fixation) fracture Status: Acute Comment: R distal fibula fracture by Dr. Gibbons on 12/07/19 (4) Anxiety Status: Chronic (5) GERD (gastroesophageal reflux disease) Status: Chronic (6) History of rheumatic fever as a child Status: Chronic (7) Mitral valve prolapse Status: Chronic (8) DALLAS (obstructive sleep apnea) Status: Chronic Comment: Untreated - could not tolerate the mask (9) UTI (urinary tract infection) Status: Acute Comment: Due to pseudomonas aeruginosa diagnosed on 12/04/2019 and treated with Levaquin (10) Trigeminal neuralgia Status: Chronic Comment: On Tegretol History of Present Illness Date of Admission: 12/10/19 Chief Complaint: Debility due to recent R distal fibula fracture and subsequent ORIF by Dr. Gibbons on 12/07/19. The patient is a 74 year old F with a past medical history of mitral valve prolapse, rheumatic fever as a child, GERD, obstructive sleep apnea (not on CPAP due to intolerance of the mask), obesity, vitamin D deficiency and recent comminuted fracture of the right distal fibula secondary to a fall. The initial x-ray reported an avulsion fracture of the left talus however follow-up x-rays did not confirm this and she was diagnosed with a sprain per Dr. Gibbons. She was discharged from the inpatient rehab unit on 12/07/2019 and taken to surgery on 12/07/2019 for ORIF of the right distal fibula fracture by Dr. Gibbons. She returned to the rehab unit today for greater than 3 hours of therapy daily with a goal of returning home at or near her prior level of independence. She lives in an assisted living facility by herself and has no steps. Her apartment has grab bars. She was independent with her ADLs, mobility and driving prior to hospitalization. She currently has a cast on the right lower extremity which will remain on for a period of 2 weeks starting 12/08/2019. She will then be placed in a boot. She is requiring Tylenol 1 g p.o. every 8 hours, fentanyl 12 mcg patch every 72 hours and oxycodone 10 mg every 4 hours as needed to adequately control her pain. She had a UTI secondary to pseudomonas aeruginosa on her admission to the rehab unit initially and has 2 more days of Levaquin. She was started on Buspar at her last visit to rehab for anxiety and she is calmer now. her anxiety increased in the past so did her need for pain medications. She tells me that she is sleeping well. She denies N/V/abdominal pain. She had to have MOM yesterday for constipation. Has been getting senna/docusate 2 BID. She denies cough, chest pain, shortness of breath, hemoptysis and lightheadedness. She has had no fever or chills. I reviewed the labs done 12/08/2019 and her hemoglobin was 10.3, down from 10.8 on 12/05/2019. BMP was unremarkable. LFTs were within normal limits. The most recent vital signs are temp 98.3, pulse rate 62, blood pressure 128/49, respiratory rate 16 and she was 99% saturated on room air. Past Medical History Past Medical History (Chronic Problems): Chronic Problems DALLAS (obstructive sleep apnea) (Chronic) Untreated - could not tolerate the mask Mitral valve prolapse (Chronic) GERD (gastroesophageal reflux disease) (Chronic) History of rheumatic fever as a child (Chronic) Anxiety (Chronic) Trigeminal neuralgia (Chronic) On Tegretol Allergies codeine Allergy (Verified 12/07/19 11:29) Unknown Home Medications: Ambulatory Orders Medication Instructions Recorded Acetaminophen [Tylenol] 1,000 mg PO Q8 tab 12/07/19 Atenolol [Tenormin (beta erma)] 25 mg PO QAM tab 12/07/19 Atenolol [Tenormin (beta erma)] 50 mg PO QPM tab 12/07/19 Bisacodyl [Dulcolax] 10 mg RECTAL .PRN X 1 PRN suppos. 12/07/19 Carbamazepine [Tegretol] 100 mg PO DAILY@0800 tab 12/07/19 Carbamazepine [Tegretol] 200 mg PO DAILY@1700 tab 12/07/19 Cholecalciferol (VIT D3) [Vitamin 2,000 unit PO DAILYCM tab 12/07/19 D3] Famotidine [Pepcid] 20 mg PO BID tab 12/07/19 Mag Hydrox/Al Hydrox/Simeth 30 ml PO Q6H PRN PRN udc 12/07/19 [Mylanta II] Magnesium Hydroxide [Milk Of 30 ml PO .PRN X 1 PRN udc 12/07/19 Magnesia] Mupirocin [Bactroban] 1 applic TOPICAL BID tube 12/07/19 Senna/Docusate Sodium [Senokot-S] 2 tab PO BID tab 12/07/19 Zolpidem Tartrate [Ambien] 5 mg PO QHS PRN PRN tab 12/07/19 busPIRone [Buspar] 5 mg PO TID tab 12/07/19 Acetaminophen [Tylenol] 1,000 mg PO Q8 #20 tab 12/10/19 Aspirin [Aspirin, Baby] 81 mg PO BID #28 tab.chew 12/10/19 Oxycodone [Oxyir] 5 mg PO Q4H PRN PRN 3 Days #18 tab 12/10/19 levoFLOXacin tablet [Levaquin 250 mg PO DAILY@0600 #2 tab 12/10/19 tablet] Surgical History: cholecystectomy, - - Tubal ligation, ORIF of R fibula fx 12/07/19 Psychiatric History: Anxiety CLIENT SUPPORT COORDINATOR History: No pertinent CLIENT SUPPORT COORDINATOR history Lives: Alone Smoking Status: Never smoker Tobacco Use: Non-smoker Alcohol: None Drugs: None - *Family History Maternal History Items: Cancer - Her mother at the age of 45 from colon cancer Paternal History Items: - - Father of congestive heart failure Review of Systems Constitutional: Denies: Anorexia, Chills, Fever, Malaise, Weight Change HEENT: Denies: Difficulty Hearing, Difficulty Swallowing, Head Aches, Sinus Congestion, Sinus Drainage, Sore Throat Cardiovascular: Reports: Edema - of the toes on the right foot and of the ankle on the left when the leg is dependent. She does not have TEDS in place at the time of admission to the [facility].. Denies: Chest Pain, Palpitations Respiratory: Denies: Cough, Hemoptysis, Pleuritic Pain, Shortness of Breath, Shortness of breath at rest, Sputum production Gastrointestinal: Reports: Constipation. Denies: Abdominal Pain, Diarrhea, Nausea, Vomiting Genitourinary: Denies: Dysuria Gynecological: Denies: Vaginal discharge Musculoskeletal: Reports: Leg Pain - R distal leg due to recent sugery. Denies: Joint Pain, Joint Tenderness Skin: Denies: Jaundice, Rash, Wounds Neurological: Reports: - - Trigeminal neuralgia-denies pain at the present time. Denies: Change in Speech, Slurred speech, Focal weakness, Numbness, Tingling, Tremor, Seizures Psychiatric: Denies: Anxiety, Depression, Homicidal Ideations, Suicidal Ideations Hematologic/ Lymphatic: Denies: Easy Bruising, Easy Bleeding, Hx of blood clot VTE Information - Inpt Only VTE Present on Admission: No VTE Mechan Device Prophylaxis: Knee High MARIA M Hose - on the L LE VTE Pharm Prophylaxis ordered?: Yes Patient Problems: Active and Suspected Problems UTI (urinary tract infection) (Acute) Due to pseudomonas aeruginosa diagnosed on 12/04/2019 and treated with Levaquin - Physical Exam Vitals/I&O's: Vital Signs Temp Pulse Resp BP Pulse Ox 98.3 F 63 16 136/66 H 94 12/10/19 14:44 12/10/19 14:44 12/10/19 14:44 12/10/19 14:44 12/10/19 14:44 Oxygen Delivery Method Room Air Weight: 157 lb 13.616 oz Body Mass Index (BMI) 30.8 General: Alert, Oriented x3, Cooperative, No apparent distress, Well developed, Well nourished, - - very calm in appearance HEENT: Atraumatic, PERRLA, EOMI, Normocephalic Oral: No Gingival or Mucosal Lesions/ Ulcerations, Dry Mucosa Neck: No JVD, Negative Carotid Bruits, No Nodes, Trachea Midline Lungs: Clear to auscultation Cardiovascular: Regular rate, Regular Rhythm, Normal S1, Normal S2, No murmurs, No Ectopic Activity, No rub noted, No Gallop, - - no mitral click appreciated Abdomen: Bowel Sounds Present, Soft, Non Tender, Non-Distended, - - No guarding with palpation Extremities: No clubbing, No cyanosis, Edema - trace edema of the left ankle and edema of the toes of the right foot, she has no posterior thigh edema either leg Skin: No rashes, - - she preciously had a small stage 2 decub on the medial distal RLE due to the boot strap being too tight....this is covered by the cast now and I can not examine Musculoskeletal: No Muscle Wasting Neurological: Cranial nerves II-XII grossly intact, Neuro grossly intact Psych/Mental Status: Normal Affect, Appropriate Assessment/Plan All Active Problems Closed fracture of right distal fibula (Acute) S/P ORIF (open reduction internal fixation) fracture (Acute) Pressure ulcer caused by device (Acute) UTI (urinary tract infection) (Acute) Impressions 1. Physical debility secondary to recent right distal fibula fracture and subsequent ORIF on 12/07/[address] Gibbons. 2. Cystitis secondary to pseudomonas aeruginosa-on Levaquin, has 2 more doses. 3. Acute blood loss anemia-stable 4. episodic lightheadedness I suspect is due to dehydration. She developed hyponatremia on recent admit to [facility] and this was due to prerenal azotemia/dehydration. It resolved with hydration. 5. Chronic conditions including mitral valve prolapse/trigeminal neuralgia/obstructive sleep apnea/GERD/vitamin D deficiency-continue chronic medications Dr. Gibbons has recommended 81 mg of aspirin twice a day for 14 days for DVT prophylaxis. Will continue the Fentanyl patch for the next few days and then DC continue scheduled Tylenol and PRN Oxycodone PLAN PT for gait stability OT for ADL's Analgesics as needed -continue fentanyl 12 mcg every 72 hours x72 hours and then discontinue. Oxycodone 5 to 10 mg every 4 hours as needed pain and Tylenol 1 g p.o. every 8 hours. Bowel protocol - Miralax for constipation despite Senna/docusate 2 BID Fall precautions Assess for Anxiety/Depression GI prophylaxis with famotidine 20 mg p.o. twice daily DVT prophylaxis with aspirin 81 mg twice daily x14 days per Dr. Gibbons Follow up with Dr. Gibbons and Dr. Orlando Sanchez following DC from Rehab Code Visit Inpatient E&M: 39304 Init Hosp L2
--- NOTE | 2019-12-10 15:42 | REHABEVAL_ITS ---
Admission Information Status Changes from Prescreening?: No changes Identified Actual Problem List:: UTI, Falls, Alteration in Sleep, Mobility Impaired, Self Care Deficit, Fluid Change-Dehydration Potential Problem List:: DVT, Bleeding, Infection, UTI, Aspiration, Falls, Skin Integrity, Depression Risk of Complications DVT: MARIA M Castro, - - ASA 81 mg BID per order of Dr. Gibbons Bleeding: Monitor Lab Values, Wound, if applicable, to be assessed every shift., Stroke patients assessed for lethargy or change in status. Infection: Clinical Staff to Monitor for S/S of infection:, S/S of infection include fever, redness, warmth, etc. Urinary Tract Infection: Monitor for frequency, burning, discomfort, or incontinence., Nursing will obtain urine sample for urinalysis and C&S when o rdered. Aspiration: Clinical staff will monitor for coughing, drooling, congestion., Speech will evaluate swallowing and dsyphasia., Nursing will monitor patient swallowing during meals. Falls: Patient will be evaluated for Fall Precautions, Patient will be placed on Fall Precautions as indicated per protocol. Skin Breakdown: Nursing will assess skin daily using assessment tool., Nursing will place on Skin Breakdown Precautions as indicated. Pain: Clinical staff will assess patient's pain level per protocol., Medications will be given, if needed, and the pain level reassessed., Other methods: Massage, distraction, decrease stimulus, etc. used PRN. Plan of Care Patient requires physician specializing in physical medicine and rehab oversight to provide close medical supervision of rehab issues including: Pain Management, Sleep Problems, Bowel and Bladder, Medical and co-morbidity Management, DVT prophylaxis, Rehabilitation Leadership, Coordination of treatment team Patient needs Physical Therapy: For a minimum of 1 hour, At least 5 out of 7 days Patient needs Physical Therapy to improve:: Mobility, Mobility, Mobility, Strengthening, Transfers, Stretching, ROM, Endurance, Stairs, Gait, Balance Patient needs Occupational Therapy: For a minimum of 1 hour, At least 5 out of 7 days Patient needs Occupational Therapy to improve ADL's incl.: Eating, Grooming, Bathing, Dressing, Toileting, Toilet transfers, Community Reintegration, Higher functioning activities, Household tasks, Adaptive Equipment, Splinting, Other activities as determined Patient requires 24/7 Rehabilitation Nursing for: Pain Issues, Identifying and preventing risk factors, Monitoring and reporting current medical conditions, Assisting with ambulation, transfer, and all ADL's, Teaching patients about disease process and medications, Family teaching, Providing safe environment, Bowel and Bladder Issues, Skin integrity, Medication Management Patient needs Blow Molding Machine Operator/ Case Management for: Discharge Planning, Arranging Home Equipment or Services, Family Interventions Patient needs Dietary and Nutrition Services for: Adequate Nutrition, Nutritional Supplements, Nutritional Education Goals Patient will remain: free from falls, or injury at time of discharge. Patient will perform bed mobility at: MOD I level of assist. Patient will complete transfers from bed to chair at: MOD I level of assist. Patient will ambulate: 100 feet, with MOD I assist, with LRD Patient will complete upper body dressing at: MOD I level of assist. Patient will complete lower body dressing at: MOD I level of assist. Patient will complete toileting at: MOD I level of assist. Patient will perform bathing at: MOD I level of assist. Patient will complete grooming at: MOD I level of assist. Patient will complete home management skills at: MOD I level of assist. Patient will achieve: 12 stairs, at MOD I assist Patient will have pain level of: of 3 or less Patient's skin will: remain intact, free from infection. Patient will receive: adequate nutrition. Discharge Planning Pt Prognosis for Sig. Practical Improv. w/in Reasonable Time: Good Anticipated D/C Destination: Home with Home Health
[2019-12-10 16:35] VITALS: BMI 30.8
--- NOTE | 2019-12-10 17:05 | CASEMGMT ---
Social Work Reviewed and agreed with social work internet security specialist documentation on this date. Shea Romo, STAFF HOME THERAPY RN CONTINUOUS MINER OPERATOR
[2019-12-10] MEDS: carBAMazepine 200 MG Tablet PO (18:28)
[2019-12-10] MEDS: Aspirin 81 MG TAB.CHEW PO (18:29)
[2019-12-10] MEDS: oxyCODONE 5 MG Tablet PO (18:30)
[2019-12-10 19:32] VITALS: BP 132/59; PULSE 63; RESP 18; TEMP 36.6; O2SAT 97
[2019-12-10 20:24] VITALS: O2SAT 97
[2019-12-10] MEDS: Atenolol 50 MG Tablet PO (20:38)
[2019-12-10] MEDS: busPIRone 5 MG Tablet PO (20:39)
[2019-12-10] MEDS: Senna/Docusate Sodium 1 Tablet 2 TABLET PO (20:39)
[2019-12-10] MEDS: Acetaminophen 500 MG Tablet 1000 MG PO (21:22)
[2019-12-11] MEDS: oxyCODONE 5 MG Tablet PO ×2 (02:06→06:20)
[2019-12-11] MEDS: levoFLOXacin 250 MG Tablet PO (06:20)
[2019-12-11] MEDS: busPIRone 5 MG Tablet PO ×3 (06:20→22:22)
[2019-12-11] MEDS: Acetaminophen 500 MG Tablet 1000 MG PO ×3 (06:21→22:20)
--- NOTE | 2019-12-11 06:22 | NURSING ---
oxyir prn provided for 7/10 pain in rt ankle area. Pt c/o accelerated pain after toileting and therapy is coming soon to help with ADLs.
[2019-12-11 08:05] VITALS: BP 128/62; PULSE 62; RESP 17; TEMP 36.5
[2019-12-11] MEDS: CARBAMAZEPINE 100 MG TAB.CHEW PO (08:15)
[2019-12-11] MEDS: Famotidine 20 MG Tablet PO ×2 (08:15→22:22)
[2019-12-11] MEDS: Aspirin 81 MG TAB.CHEW PO ×2 (08:15→18:02)
[2019-12-11] MEDS: Senna/Docusate Sodium 1 Tablet 2 TABLET PO (08:15)
--- NOTE | 2019-12-11 10:01 | PCM.PN.BLA ---
Progress Note Afebrile Vital signs are stable. She is maintaining appropriate oxygen saturation on room air. she has felt nauseated today. she had an emesis after lunch......partially digested lettuce, no coffee grounds. Denies abd pain. No BM since Tuesday or Tuesday. States pain is adequately controlled without the Fentanyl patch. Taking Oxycodone. No cough. Abd - soft, NT, NT to palpation and no guarding. Decreased BS's. Alert and oriented X 3. Lungs - CTA Heart RRR MM are moist Impressions 1. Nausea/vomiting-antiemetics ordered. Patient will stick to liquids and possibly a light diet later if she feels better. 2. Constipation-MiraLAX has been ordered. She also has a Duca locks suppository ordered as needed change the Metoprolol to 25 mg BID. Zofran ODT ordered and Phenergan supp if Zofran is not effective. She was instructed to keep to liquids and maybe light diet today if she feels better later Check lab in the AM STROKE Vital Signs/Narrative: Vital Signs Temp Pulse Resp BP 12/11/19 08:05 97.7 F L 62 17 128/62 H Code Visit Inpatient E&M: 69801 Subs Hosp L1
[2019-12-11 11:29] VITALS: BP 150/74; PULSE 64
[2019-12-11] MEDS: Polyethylene Glycol 3350 17 GM PACKET PO (13:35)
--- NOTE | 2019-12-11 14:40 | NURSING ---
pt had large emesis while working with therapy. back to bed. dr turner aware. given alka eddie per pt request. will monitor.
[2019-12-11] MEDS: Ondansetron ODT 4 MG Tablet PO (15:55)
--- NOTE | 2019-12-11 15:55 | NURSING ---
zofran odt given per orders
[2019-12-11] MEDS: carBAMazepine 200 MG Tablet PO (18:02)
[2019-12-11 19:33] VITALS: BP 154/70; PULSE 68; RESP 18; TEMP 36.8; O2SAT 98
[2019-12-11] MEDS: Atenolol 25 MG Tablet PO (22:22)
[2019-12-12 05:38] LABS: Hematocrit 31.5 % (37-47); Hemoglobin 10.9 g/dL (12.0-15.0); Mean Corp Hgb Conc 34.6 g/dL (32-36); Mean Corpuscular Volume 86.8 fL (81-99); Mean Platelet Vol. 8.8 fl (6.2-12.0); Platelet Count 272 K/mm3 (150-450); RBC Distribution Width CV 11.9 % (11.6-14.6); RBC Distribution Width SD 38.3 fl (35.1-43.9); Red Blood Count 3.63 M/mm3 (4.2-5.4); White Blood Count 3.8 K/mm3 (4.4-11.0)
[2019-12-12 05:57] LABS: Anion Gap 5 (5-15); BUN 10 mg/dL (7-18); Calcium,Total 8.5 mg/dL (8.5-10.1); Chloride 89 mmol/L (98-107); Creatinine, Serum 0.72 mg/dL (0.55-1.02); EST Glomerular Filtration Rate 85 mL/min (>60); Est Glom Filt Rate - Afr Amer 103 mL/min (>60); Estimated Creatinine Clearance 35.45 ml/min; Glucose 106 mg/dL (74-106); Phosphorus 3.6 mg/dL (2.5-4.9); Potassium 4.1 mmol/L (3.5-5.1); Sodium Level 122 mmol/L (136-145)
--- NOTE | 2019-12-12 06:34 | NURSING ---
pt has emesis of 100 ML of clear green liquid. Phenergen prn requested from pharmacy and will admin when arrives. cool washcloth provided.
[2019-12-12] MEDS: proMETHazine 25 MG Suppos. RECTAL ×2 (06:39→10:54)
[2019-12-12] MEDS: Acetaminophen 500 MG Tablet 1000 MG PO ×3 (07:53→20:37)
[2019-12-12] MEDS: busPIRone 5 MG Tablet PO ×3 (08:04→20:35)
[2019-12-12] MEDS: CARBAMAZEPINE 100 MG TAB.CHEW PO (09:12)
[2019-12-12] MEDS: Aspirin 81 MG TAB.CHEW PO ×2 (09:13→16:42)
[2019-12-12 09:29] VITALS: BP 138/66; PULSE 61; RESP 17; TEMP 36.5; O2SAT 97
[2019-12-12] MEDS: 0.9% Normal Saline 1,000 ML 100 ML IV ×2 (11:07→21:10)
[2019-12-12] MEDS: 0.9% Saline Lock 10 ML Syringe IV (11:38)
[2019-12-12] MEDS: Famotidine 20 MG Tablet PO ×2 (11:43→20:32)
[2019-12-12] MEDS: Atenolol 25 MG Tablet PO ×2 (11:44→20:35)
[2019-12-12] MEDS: carBAMazepine 200 MG Tablet PO (16:43)
[2019-12-12 20:39] VITALS: BP 134/65; PULSE 80; RESP 16; TEMP 36.9; O2SAT 97
[2019-12-13] MEDS: busPIRone 5 MG Tablet PO ×3 (06:17→21:56)
[2019-12-13] MEDS: Acetaminophen 500 MG Tablet 1000 MG PO ×3 (06:17→21:55)
[2019-12-13 06:18] LABS: Anion Gap 6 (5-15); BUN 8 mg/dL (7-18); Calcium,Total 8.1 mg/dL (8.5-10.1); Chloride 101 mmol/L (98-107); Creatinine, Serum 0.66 mg/dL (0.55-1.02); EST Glomerular Filtration Rate 92 mL/min (>60); Est Glom Filt Rate - Afr Amer 112 mL/min (>60); Estimated Creatinine Clearance 35.45 ml/min; Glucose 85 mg/dL (74-106); Potassium 4.1 mmol/L (3.5-5.1); Sodium Level 133 mmol/L (136-145)
[2019-12-13 07:03] VITALS: O2SAT 97
[2019-12-13] MEDS: Atenolol 25 MG Tablet PO ×2 (08:03→21:56)
[2019-12-13] MEDS: CARBAMAZEPINE 100 MG TAB.CHEW PO (08:03)
[2019-12-13] MEDS: Famotidine 20 MG Tablet PO ×2 (08:03→21:56)
[2019-12-13] MEDS: Aspirin 81 MG TAB.CHEW PO ×2 (08:03→16:43)
[2019-12-13] MEDS: 0.9% Normal Saline 1,000 ML 100 ML IV (08:07)
[2019-12-13] MEDS: Polyethylene Glycol 3350 17 GM PACKET PO (08:09)
[2019-12-13 08:31] VITALS: BP 144/69; PULSE 62; RESP 17; TEMP 36.6; O2SAT 95
[2019-12-13] MEDS: oxyCODONE 5 MG Tablet PO ×2 (11:01→20:17)
--- NOTE | 2019-12-13 11:49 | CASEMGMT ---
Social Work IDT met with patient for Team Meeting. Discussed patient's progress in therapy. Pt is walking 5ft CGA with FWW while maintaining NWBS. Pt is min assist for transfers, sponge bathes while seated - min assist for LE ADLs, set up for UE ADLS and grooming. Pt having issues with sodium levels and nausea, and getting IV fluids. Explained Medicare ELOS 14 days with DC date 12/24. Will ReTeam next week. Will continue to follow. BRADEN Baker TOOL CHASER
--- NOTE | 2019-12-13 14:00 | PCM.PN.BLA ---
Progress Note The patient was seen on team rounds today. There was no family present. Afebile VSS Maintaining appropriate oxygen saturation on RA Oral intake is poor. She does not like to drink enough water. Discussed with nursing - no problems that need addressed Reviewed the PT/OT notes Medication list reviewed. She just started the 3rd unit of NS. Tells me that the N/V/lightheadedness have resolved with hydration and she is feeling better. She denies palpitations since the Atenolol has been to 25mg BID because of lightheadedness and bradycardia. Systolic BP has increased. Denies SOB/CP/cough. She had a BM yesterday. Denies constipation. MM are more moist, no mucosal lesions Lungs are clear to auscultation Heart-regular rate and rhythm Abdomen-soft, nontender, nondistended, normal bowel sounds are normal for quadrants Both feet are warm to the touch with intact sensation Skin-warm and dry, no rashes, no breakdown Impressions 1. Debility secondary to right distal fibula fracture-status post ORIF of the right ankle 2. Recurrent hyponatremia-TSH normal, cortisol normal, fractional excretion of sodium suspicious for prerenal. Will recheck BMP in the a.m. Tuesday. Continue therapy Code Visit Inpatient E&M: 66602 Subs Hosp L1
[2019-12-13] MEDS: carBAMazepine 200 MG Tablet PO (16:43)
--- NOTE | 2019-12-13 16:44 | CHAPLAIN ---
Type of Pastoral Visit ___ Initial Visit _x__ Follow-up Visit ___ On-call Visit ___ General Patient Visit ___ Spiritual Assessment ___ Family Conference ___ Bereavement ___ Rapid Response ___ Code Blue ___ Other (describe below) Pastoral Care Referral From _x__ Patient ___ Family ___ Nurse ___ Physician ___ Java J2Ee Software Engineer ___ O And M Supervisor ___ Other (describe below) Sacrament/Intervention _x__ Active listening ___ Anointing ___ Oriental Orthodox ___ Bereavement ___ Communion ___ Orly exploration ___ _x__ Life review _x__ Prayer ___ Reconciliation ___ Sacrament of Sick ___ Supportive presence ___ Wedding ___ Other (describe below) Pastoral Comments
[2019-12-13 19:10] VITALS: BP 141/60; PULSE 67; RESP 16; TEMP 36.6; O2SAT 96
[2019-12-13 21:55] VITALS: BP 133/44; PULSE 65
[2019-12-14] MEDS: oxyCODONE 5 MG Tablet PO ×4 (00:23→20:42)
[2019-12-14] MEDS: Acetaminophen 500 MG Tablet 1000 MG PO ×3 (05:40→20:42)
[2019-12-14] MEDS: busPIRone 5 MG Tablet PO ×3 (05:40→20:41)
[2019-12-14 07:15] VITALS: O2SAT 96
[2019-12-14 08:37] VITALS: BP 124/58; PULSE 55; RESP 12; TEMP 36.4; O2SAT 99
[2019-12-14] MEDS: Atenolol 25 MG Tablet PO ×2 (09:10→20:42)
[2019-12-14] MEDS: Polyethylene Glycol 3350 17 GM PACKET PO (09:10)
[2019-12-14] MEDS: Aspirin 81 MG TAB.CHEW PO ×2 (09:10→16:35)
[2019-12-14] MEDS: Famotidine 20 MG Tablet PO ×2 (09:10→20:42)
[2019-12-14] MEDS: CARBAMAZEPINE 100 MG TAB.CHEW PO (09:11)
[2019-12-14] MEDS: carBAMazepine 200 MG Tablet PO (16:35)
[2019-12-14] MEDS: Magnesium Hydroxide 30 ML UDC PO (16:35)
[2019-12-14 22:00] VITALS: BP 142/74; PULSE 66; RESP 16; TEMP 36.3; O2SAT 97
[2019-12-15] MEDS: Bisacodyl 10 MG Suppository RECTAL (04:43)
[2019-12-15] MEDS: Acetaminophen 500 MG Tablet 1000 MG PO ×3 (05:34→21:48)
[2019-12-15] MEDS: busPIRone 5 MG Tablet PO ×3 (05:35→21:48)
[2019-12-15 07:00] VITALS: BP 134/60; PULSE 55; RESP 18; TEMP 36.4; O2SAT 98
[2019-12-15] MEDS: Atenolol 25 MG Tablet PO ×2 (07:37→21:48)
[2019-12-15] MEDS: Famotidine 20 MG Tablet PO ×2 (07:37→21:48)
[2019-12-15] MEDS: Polyethylene Glycol 3350 17 GM PACKET PO (07:37)
[2019-12-15] MEDS: Aspirin 81 MG TAB.CHEW PO ×2 (07:37→17:02)
[2019-12-15] MEDS: CARBAMAZEPINE 100 MG TAB.CHEW PO (07:37)
[2019-12-15] MEDS: carBAMazepine 200 MG Tablet PO (17:02)
[2019-12-15 19:37] VITALS: BP 143/67; PULSE 60; RESP 20; TEMP 36.7; O2SAT 98
--- NOTE | 2019-12-15 22:00 | NURSING ---
SMALL PLASTIC PATCH REMOVED FROM L DELTOID-UNABLE TO READ LETTERING ON PATCH VERY FAINT GREEN MARKING, A PENNED DATE OF 12-10-19 NOTED ON PATCH. PATCH REMOVED AND PUT IN DESTROYER RX. MIKEY DOMINGO RN VERIFIES PATCH UNREADABLE AND PLACED IN DESTOYER RX.
[2019-12-16] MEDS: Acetaminophen 500 MG Tablet 1000 MG PO ×3 (06:38→20:57)
[2019-12-16] MEDS: busPIRone 5 MG Tablet PO ×3 (06:39→20:58)
[2019-12-16 07:04] VITALS: BP 144/62; PULSE 58; RESP 16; TEMP 36.4; O2SAT 96
[2019-12-16] MEDS: Aspirin 81 MG TAB.CHEW PO ×2 (11:30→17:28)
[2019-12-16] MEDS: CARBAMAZEPINE 100 MG TAB.CHEW PO (11:30)
[2019-12-16] MEDS: Famotidine 20 MG Tablet PO ×2 (11:30→20:58)
[2019-12-16] MEDS: Atenolol 25 MG Tablet PO ×2 (11:31→20:58)
[2019-12-16] MEDS: carBAMazepine 200 MG Tablet PO (17:28)
[2019-12-16 19:15] VITALS: BP 143/87; PULSE 67; RESP 18; TEMP 36.4; O2SAT 98
[2019-12-17] MEDS: busPIRone 5 MG Tablet PO ×3 (05:49→20:34)
[2019-12-17] MEDS: Acetaminophen 500 MG Tablet 1000 MG PO ×3 (05:49→20:35)
[2019-12-17 06:01] LABS: Anion Gap 6 (5-15); BUN 10 mg/dL (7-18); BUN/Creat Ratio 13.3 RATIO (10-20); Calcium,Total 8.7 mg/dL (8.5-10.1); Chloride 94 mmol/L (98-107); Creatinine, Serum 0.75 mg/dL (0.55-1.02); EST Glomerular Filtration Rate 80 mL/min (>60); Est Glom Filt Rate - Afr Amer 96 mL/min (>60); Estimated Creatinine Clearance 35.45 ml/min; Glucose 100 mg/dL (74-106); Potassium 4.1 mmol/L (3.5-5.1); Sodium Level 128 mmol/L (136-145)
[2019-12-17] MEDS: Atenolol 25 MG Tablet PO ×2 (07:51→20:35)
[2019-12-17] MEDS: Famotidine 20 MG Tablet PO ×2 (07:52→20:34)
[2019-12-17] MEDS: CARBAMAZEPINE 100 MG TAB.CHEW PO (07:52)
[2019-12-17] MEDS: Aspirin 81 MG TAB.CHEW PO ×2 (07:52→17:01)
[2019-12-17 07:59] VITALS: BP 131/65; PULSE 63; RESP 16; TEMP 36.7; O2SAT 98
[2019-12-17 10:07] LABS: Osmolality, Serum 262 mOsm/KG (280-301)
--- NOTE | 2019-12-17 11:38 | PCM.PN.BLA ---
Progress Note Afebrile Systolic blood pressure is mildly increased ranging from 1 34-1 44. Diastolic blood pressure is good. Good oral intake Maintaining appropriate oxygen saturation on room air All lab was personally reviewed. White blood cell count is once again low at 128 with a chloride of 94. BUN is 10 and the creatinine is 0.75 with a BUN/creatinine ratio of 13. TSH and cortisol have been normal in the past. Fractional excretion of sodium was less than 1% which is consistent normally with dehydration. Sodium corrected with normal saline in the past. She has episodes of lightheadedness and nausea at home and this may be what is happening. She is not on a diuretic or an GALI/ARB. She is on Tegretol and it can cause hyponatremia. Alert, sitting in the recliner with her legs elevated. Appears in no acute distress. Mucous membranes are moist. No mucosal lesions Lungs-clear to auscultation Heart-regular rate and rhythm, no gallop, no rub Abdomen-soft, nontender, nondistended with normal bowel sounds in all quadrants MARIA M hose are in place. She has intact sensation in the toes on her right foot and they are warm. Impressions 1. Recurrent hyponatremia-normal TSH and normal cortisol. Fractional excretion of sodium consistent with dehydration. Will check serum and urine osmolality and recheck urine sodium and urine creatinine. Possible SIADH versus medication reaction to Tegretol. Will do some research into how the Tegretol cause hyponatremia......if it is salt wasting then she may benefit from salt tablets. 2. Anxiety - well controlled. 3. good pain control Discussed the hyponatremia with the pharmacist and he is going to try and find out the mechanism by which the Tegretol lowers sodium. STROKE Vital Signs/Narrative: Vital Signs Temp Pulse Resp BP Pulse Ox 12/17/19 07:59 98.1 F 63 16 131/65 H 98 Code Visit Inpatient E&M: 11026 Subs Hosp L1
[2019-12-17 12:27] LABS: Urine Sodium 55 mmol/L (Not Establ.)
[2019-12-17 12:56] LABS: Osmolality, Urine 331 mOsm/KG
[2019-12-17] MEDS: carBAMazepine 200 MG Tablet PO (17:02)
[2019-12-17 19:36] VITALS: BP 140/62; PULSE 63; RESP 18; TEMP 36.6; O2SAT 95
[2019-12-17 20:38] VITALS: RESP 17
[2019-12-18] MEDS: busPIRone 5 MG Tablet PO ×3 (05:16→21:14)
[2019-12-18] MEDS: Acetaminophen 500 MG Tablet 1000 MG PO ×3 (05:16→21:15)
[2019-12-18] MEDS: Famotidine 20 MG Tablet PO ×2 (07:53→21:14)
[2019-12-18] MEDS: Aspirin 81 MG TAB.CHEW PO ×2 (07:53→17:06)
[2019-12-18] MEDS: Atenolol 25 MG Tablet PO ×2 (07:53→21:14)
[2019-12-18] MEDS: CARBAMAZEPINE 100 MG TAB.CHEW PO (07:54)
[2019-12-18] MEDS: Ondansetron ODT 4 MG Tablet PO (07:56)
[2019-12-18 08:01] VITALS: BP 134/64; PULSE 58; RESP 16; TEMP 36.3; O2SAT 95
[2019-12-18] MEDS: carBAMazepine 200 MG Tablet PO (17:06)
[2019-12-18 19:34] VITALS: BP 137/68; PULSE 60; RESP 18; TEMP 36.6; O2SAT 98
[2019-12-19] MEDS: Acetaminophen 500 MG Tablet 1000 MG PO ×3 (06:00→21:33)
[2019-12-19] MEDS: busPIRone 5 MG Tablet PO ×2 (06:00→15:01)
[2019-12-19] MEDS: CARBAMAZEPINE 100 MG TAB.CHEW PO (07:56)
[2019-12-19] MEDS: Aspirin 81 MG TAB.CHEW PO ×2 (07:56→17:17)
[2019-12-19] MEDS: Famotidine 20 MG Tablet PO ×2 (07:57→21:34)
[2019-12-19] MEDS: Atenolol 25 MG Tablet PO ×2 (07:58→21:34)
[2019-12-19 08:55] VITALS: BP 145/58; PULSE 56; RESP 16; TEMP 36.7; O2SAT 95
--- NOTE | 2019-12-19 11:50 | PCM.PN.BLA ---
Progress Note Afebile VSS -the systolic blood pressure is mildly elevated and frequently greater than 135. Maintaining appropriate oxygen saturation on RA Oral intake is good. The oral intake on 12/18/2019 was 1360 despite a 1200 cc fluid restriction Discussed with nursing - no problems that need addressed Reviewed the PT/OT notes - She has met her short term goal and is working on the terminal operations supervisor goal. Additional therapy still recommended Medication list reviewed. Denies palpitations. The resting HR is still low with the decrease in the Atenolol dose......but, no palpitations She does not feel that she is anxious but many of her friends have told her that in the past. She has loose stool today and she is anxious because, she does not know the plan for discharge. I told her she would have to see Dr. Leyva as an OP in his office and that he would not come to the hospital. I also told her she would need to get a ride to his office....now she is worried about that. She does not feel as though she will be able to walk across her living room yet. We discussed irritable bowel. She tells me that her pain in adequately managed. She is anxious to get the cast off because she feels that it is too heavy and is holding her back in therapy. She looks down/frustrated today and says she is tired. she had 4 loose BM's today. Lungs -CTA Heart RRR abdomen - soft, no guarding, ND, mildly increased BM's Impressions 1. anxiety increasing - worried about discharge and perseverating on this. 2. Diarrhea - I suspect this is due to IBS related to the anxiety 3. Debility due to R distal fibula fx due to a fall with subsequent ORIF 4. HTN - mildly increased. Goal is to have the sys < 135 consistently check BMP in the AM Add Norvasc 2.5 mg daily to the Atenolol Increase the Buspar to 10 mg in the AM, 5 mg in the afternoon and 10 mg in the evening. Pt is agreeable to this. I told her everything would be discussed at TEAM in the AM. I am not sure she is ready to go home yet, I think the anxiety may be holding her back. We talked about possibly going to a SNF and she is now worried about who pays for that.......I assured her that Jenny would discuss this with her tomorrow. STROKE Vital Signs/Narrative: Vital Signs Temp Pulse Resp BP Pulse Ox 12/19/19 08:55 98.0 F 56 L 16 145/58 H 95 Code Visit Inpatient E&M: 23762 Subs Hosp L2
[2019-12-19] MEDS: amLODIPine 2.5 MG Tablet PO (12:58)
[2019-12-19] MEDS: Loperamide 2 MG Capsule 4 MG PO (12:58)
--- NOTE | 2019-12-19 16:03 | CASEMGMT ---
Social Work Revisited completing Advanced options. Pt chose not to complete advanced directives at this time, but educated to how to complete in future. Discussed options for transferring to TCU, pt agreeable to placement on waiting list for transfer to TCU Tuesday, 12/23. Pt states that if she can not go to TCU she would want to go home, [place] alone with C. Arlin Torres, social work social media intern Shea Wiggins, NON GARMENT SEWING MACHINE OPERATOR CONVENTIONAL MORTGAGE UNDERWRITER
[2019-12-19] MEDS: carBAMazepine 200 MG Tablet PO (17:18)
[2019-12-19 19:23] VITALS: BP 128/93; PULSE 68; RESP 18; TEMP 36.8; O2SAT 97
[2019-12-19] MEDS: oxyCODONE 5 MG Tablet PO (19:36)
[2019-12-19] MEDS: busPIRone 5 MG Tablet 10 MG PO (21:34)
[2019-12-20] MEDS: Acetaminophen 500 MG Tablet 1000 MG PO ×3 (05:28→20:28)
[2019-12-20] MEDS: busPIRone 5 MG Tablet 10 MG PO ×2 (05:28→20:27)
[2019-12-20 06:23] LABS: Anion Gap 5 (5-15); BUN 11 mg/dL (7-18); BUN/Creat Ratio 14.1 RATIO (10-20); Calcium,Total 8.5 mg/dL (8.5-10.1); Chloride 96 mmol/L (98-107); Creatinine, Serum 0.78 mg/dL (0.55-1.02); EST Glomerular Filtration Rate 77 mL/min (>60); Est Glom Filt Rate - Afr Amer 93 mL/min (>60); Estimated Creatinine Clearance 35.45 ml/min; Glucose 99 mg/dL (74-106); Potassium 4.3 mmol/L (3.5-5.1); Sodium Level 128 mmol/L (136-145)
[2019-12-20 07:41] VITALS: BP 130/62; PULSE 55; RESP 16; TEMP 36.8; O2SAT 95
[2019-12-20] MEDS: CARBAMAZEPINE 100 MG TAB.CHEW PO (07:57)
[2019-12-20] MEDS: Aspirin 81 MG TAB.CHEW PO ×2 (07:57→17:07)
[2019-12-20] MEDS: Famotidine 20 MG Tablet PO ×2 (07:58→20:28)
[2019-12-20] MEDS: Atenolol 25 MG Tablet PO ×2 (07:58→20:28)
[2019-12-20] MEDS: amLODIPine 2.5 MG Tablet PO (07:58)
[2019-12-20] MEDS: oxyCODONE 5 MG Tablet PO (08:02)
--- NOTE | 2019-12-20 10:59 | PCM.PN.BLA ---
Progress Note Patient was seen on team rounds. No family present. Afebile VSS Maintaining appropriate oxygen saturation on RA Oral intake is good. She is staying within her fluid restriction of 1200 cc daily. Good appetite. Discussed with nursing - no problems that need addressed Reviewed the PT/OT notes Medication list reviewed. All lab was reviewed personally today. The sodium is stable at 128 and she is asymptomatic. Fluid restriction is currently at 1200 and she does not want to go any lower......she is worried about getting dehydrated. She is quite anxious today about planned DC on Tuesday. She would like to go to TCU but there may not be a bed open. If she can not go home she would like to go home with [facility]. PT and OT feel she has progressed to the point where she will be safe at home. Buspar dose was increased yesterday to help with anxiety. No diarrhea today. Denies abd pain, nausea and vomiting. No cough and no SOB. alert, oriented X 3 NAD except anxiety MM are moist Lungs - CTA no skin tenting HRRR no edema Impressions 1. debility due to recent R distal fibula fracture and subsequent ORIF. Has an paula with Dr. Gibbons in the office Tuesday 2. Hyponatremia due to adverse reaction to Tegretol used for Trigeminal neuralgia so it can not be stopped at this point. she is not willing to lower the fluid restriction even to 1,000. Will try salt tabs, 1 GM BID and recheck the lab Tuesday. Demeclocycline is another option. She normally follows with Dr. Desai.......I offered her the option of following up with the new neurologist at [facility] if she does not feel she can travel that far to Dr. Desai's office. If the Tegretol is discontinued the SIADH will go away and I recommended she discuss this with neurology. I suspect this is why she has been having episodic lightheadedness, near syncope, nausea and falls at home. Continue therapy. STROKE Vital Signs/Narrative: Vital Signs Temp Pulse Resp BP Pulse Ox 12/20/19 07:41 98.3 F 55 L 16 130/62 H 95 Code Visit Inpatient E&M: 92913 Subs Hosp L2
[2019-12-20] MEDS: busPIRone 5 MG Tablet PO (13:19)
--- NOTE | 2019-12-20 13:53 | CASEMGMT ---
Team meeting held on this date with pt present. Pt is receiving PT/OT and progressing with therapy. D/C date set for 12/24/19. Pt is displaying some anxiety regarding discharge plan and staff providing reassurance. Pt would like to go to TCU upon d/c however, if TCU does not have a bed pt refusing to go to outside SNF and will return home with home health services. RAVINDER spoke with Niesha in TCU who states she will know tomorrow if a bed is available for pt. Pt notified and expressed understanding. Written list of home health agencies provided to pt in the event she returns home. RAVINDER will followup with pt tomorrow to verify d/c plan. GIRMA Hernandez
[2019-12-20] MEDS: carBAMazepine 200 MG Tablet PO (17:06)
[2019-12-20 20:22] VITALS: BP 124/57; PULSE 56; RESP 16; TEMP 36.8; O2SAT 95
[2019-12-20] MEDS: SODIUM CHLORIDE 1 GM TABLET PO (20:26)
[2019-12-21] MEDS: Acetaminophen 500 MG Tablet 1000 MG PO ×3 (05:34→19:51)
[2019-12-21] MEDS: busPIRone 5 MG Tablet 10 MG PO ×2 (05:34→19:52)
[2019-12-21] MEDS: Aspirin 81 MG TAB.CHEW PO ×2 (07:54→16:49)
[2019-12-21] MEDS: Famotidine 20 MG Tablet PO ×2 (07:54→19:52)
[2019-12-21] MEDS: Atenolol 25 MG Tablet PO ×2 (07:54→19:53)
[2019-12-21] MEDS: CARBAMAZEPINE 100 MG TAB.CHEW PO (07:54)
[2019-12-21] MEDS: SODIUM CHLORIDE 1 GM TABLET PO ×2 (07:58→19:53)
[2019-12-21 08:00] VITALS: BP 130/55; PULSE 56; RESP 16; TEMP 36.7; O2SAT 97
[2019-12-21] MEDS: amLODIPine 2.5 MG Tablet PO (08:00)
[2019-12-21] MEDS: busPIRone 5 MG Tablet PO (13:16)
[2019-12-21] MEDS: Polyethylene Glycol 3350 17 GM PACKET PO (13:19)
--- NOTE | 2019-12-21 13:21 | CASEMGMT ---
Addendum entered by Arlin Torres 12/21/19 13:31: made referral to [facility] w/c Plan: DC 12/24 with [facility]-PT/OT/SN/SW, [facility], w/c Original Note: Social Work Met with pt about DC. Pt informed TCU will not have a bed available 12/24, Pt agreeable to go home 12/24 with [facility]-PT/OT/SN/SW from [facility] as first choice, if they do not go to [facility], [facility] was pt second choice. Pt requesting w/c and will private pay for FWW. Referral made to [facility], they are able to take pt. Made a referral to [facility] with social work. plan: DC 12/24 with [facility]-PT/OT/SN/SW with Arlin Torres, social work international marketing executive Shea Romo, SHOP TECHNICIAN OLERICULTURE PROFESSOR
--- NOTE | 2019-12-21 15:50 | CASEMGMT ---
Social Work Reviewed and agreed with SW documentation on this date. Shea Romo, CHEMICAL MIXER RETAIL FURNITURE SALES
[2019-12-21] MEDS: carBAMazepine 200 MG Tablet PO (16:49)
[2019-12-21 19:37] VITALS: BP 140/64; PULSE 58; RESP 18; TEMP 36.6; O2SAT 99
[2019-12-22] MEDS: oxyCODONE 5 MG Tablet PO (01:15)
[2019-12-22] MEDS: busPIRone 5 MG Tablet 10 MG PO ×2 (05:22→20:21)
[2019-12-22] MEDS: Acetaminophen 500 MG Tablet 1000 MG PO ×3 (05:22→20:26)
[2019-12-22] MEDS: Aspirin 81 MG TAB.CHEW PO ×2 (07:40→16:11)
[2019-12-22] MEDS: CARBAMAZEPINE 100 MG TAB.CHEW PO (07:41)
[2019-12-22] MEDS: Famotidine 20 MG Tablet PO ×2 (07:44→20:25)
[2019-12-22] MEDS: SODIUM CHLORIDE 1 GM TABLET PO ×2 (07:44→20:26)
[2019-12-22] MEDS: Atenolol 25 MG Tablet PO ×2 (07:44→20:26)
[2019-12-22] MEDS: amLODIPine 2.5 MG Tablet PO (08:23)
[2019-12-22 08:54] VITALS: BP 138/61; PULSE 58; RESP 16; TEMP 36.7; O2SAT 97
[2019-12-22] MEDS: busPIRone 5 MG Tablet PO (13:30)
--- NOTE | 2019-12-22 15:46 | PN_ITS ---
Patient Problems: Active and Suspected Problems UTI (urinary tract infection) (Acute) Due to pseudomonas aeruginosa diagnosed on 12/04/2019 and treated with Lev aquin Reason for Visit: ankle fxr Vitals/I&O's: Vital Signs Temp Pulse Resp BP Pulse Ox 36.7 C 58 L 16 138/61 H 97 12/22/19 08:54 12/22/19 08:54 12/22/19 08:54 12/22/19 08:54 12/22/19 08:54 Oxygen Delivery Method Room Air Weight: 69.5 kg Body Mass Index (BMI) 30.8 Intake and Output for Last 24 Hours 12/20/19 12/21/19 12/22/19 23:59 23:59 23:59 Intake Total 710 / 710 1100 / 1100 700 / 700 Output Total 1400 / 1400 1100 / 1100 1100 / 1100 Balance -690 / -690 0 / 0 -400 / -400 General: Alert, No apparent distress HEENT: Atraumatic, Normocephalic Oral: Moist Mucosa, No Gingival or Mucosal Lesions/ Ulcerations Neck: No Nodes, Trachea Midline Lungs: Clear to auscultation, Normal air movement, No rhonchi, No wheeze, No rales Cardiovascular: Regular rate, Regular Rhythm, Normal S1, Normal S2, No murmurs Abdomen: Bowel Sounds Present, Soft, Non Tender, Non-Distended, No Hepato- splenomegaly Extremities: No edema, No Calf Tenderness Skin: No rashes, No breakdown Musculoskeletal: No Tenderness to Palpation of Joints or Extremities, No Muscle Wasting Psych/Mental Status: Normal Affect, Appropriate Current Medications Acetaminophen (Tylenol) 1,000 mg PO Q8 [facility] Last Admin: 12/22/19 13:29 Dose: 1,000 mg Documented by: Al Hydroxide/Mg Hydroxide (Mylanta Ii) 30 ml PO Q6H PRN PRN PRN Reason: HEARTBURN Amlodipine Besylate (Norvasc) 2.5 mg PO DAILY [facility] Last Admin: 12/22/19 08:23 Dose: 2.5 mg Documented by: Aspirin (Aspirin, Baby) 81 mg PO BID@0800,1700 [facility] Last Admin: 12/22/19 07:40 Dose: 81 mg Documented by: Atenolol (Tenormin (Beta Sagrario)) 25 mg PO BID [facility] Last Admin: 12/22/19 07:44 Dose: 25 mg Documented by: Bisacodyl (Dulcolax) 10 mg RECTAL .PRN X 1 PRN PRN Reason: Constipation Last Admin: 12/15/19 04:43 Dose: 10 mg Documented by: Buspirone HCl (Buspar) 10 mg PO BID@0600,2200 [facility] Last Admin: 12/22/19 05:22 Dose: 10 mg Documented by: Buspirone HCl (Buspar) 5 mg PO DAILY@1400 [facility] Last Admin: 12/22/19 13:30 Dose: 5 mg Documented by: Carbamazepine (Tegretol) 200 mg PO DAILY@1700 [facility] Last Admin: 12/21/19 16:49 Dose: 200 mg Documented by: Carbamazepine (Carbamazepine) 100 mg PO DAILY@0800 [facility] Last Admin: 12/22/19 07:41 Dose: 100 mg Documented by: Cholecalciferol (Vitamin D) 2,[facility] Last Admin: 12/22/19 07:42 Dose: 2,000 unit Documented by: Famotidine (Pepcid) 20 mg PO BID [facility] Last Admin: 12/22/19 07:44 Dose: 20 mg Documented by: Magnesium Hydroxide (Milk Of Magnesia) 30 ml PO .PRN X 1 PRN PRN Reason: Constipation Last Admin: 12/14/19 16:35 Dose: 30 ml Documented by: Ondansetron HCl (Zofran Odt) 4 mg PO Q6H PRN PRN PRN Reason: NAUSEA Last Admin: 12/18/19 07:56 Dose: 4 mg Documented by: Oxycodone HCl (Oxyir) 5 - 10 mg PO Q4H PRN PRN PRN Reason: Pain Score 4-10/10 Last Admin: 12/22/19 01:15 Dose: 5 mg Documented by: Polyethylene Glycol (Miralax) 17 gm PO DAILY [facility] Last Admin: 12/22/19 07:53 Dose: Not Given Documented by: Promethazine HCl (Phenergan Suppository) 25 mg RECTAL Q4H PRN PRN PRN Reason: NAUSEA/VOMITING Last Admin: 12/12/19 10:54 Dose: 25 mg Documented by: Sodium Chloride () 10 - 40 ml IV UD PRN PRN Reason: SALINE FLUSH Last Admin: 12/12/19 11:38 Dose: 10 ml Documented by: Sodium Chloride (Sodium Chloride) 1 gm PO BID [facility] Last Admin: 12/22/19 07:44 Dose: 1 gm Documented by: Zolpidem Tartrate (Ambien (Generic)) 5 mg PO QHS PRN PRN PRN Reason: INSOMNIA Medical Necessity - Tobacco Use Smoking Status: Never smoker Tobacco Use: Non-smoker Assessment/Plan All Active Problems Closed fracture of right distal fibula (Acute) S/P ORIF (open reduction internal fixation) fracture (Acute) Pressure ulcer caused by device (Acute) UTI (urinary tract infection) (Acute) 1. 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 * check ACTH stim test and TSH (rule out adrenal insufficiency and hyp othyroidism, respectively) * continue fluid restrictions. 2. right fib fracture * continue rehab svcs * non-weight bearing RLE * follow up ortho as outpt 3. VTE proph: BID ASA Code Visit Inpatient E&M: 01091 Subs Hosp L2
[2019-12-22] MEDS: carBAMazepine 200 MG Tablet PO (16:12)
--- NOTE | 2019-12-22 17:22 | NURSING ---
EXPLAINED TO PT NEED TO PLACE SL FOR ORDERED TEST IN THE AM. EXPLAINED REASONING FOR THE TEST. PT REPORTS UNDERSTANDING AND AGREEABLE AT THIS TIME
[2019-12-22 19:22] VITALS: BP 151/77; PULSE 59; RESP 16; TEMP 36.5; O2SAT 96
[2019-12-22 22:00] VITALS: O2SAT 96
[2019-12-23] MEDS: Acetaminophen 500 MG Tablet 1000 MG PO ×3 (06:10→21:52)
[2019-12-23] MEDS: busPIRone 5 MG Tablet 10 MG PO ×2 (06:11→21:52)
[2019-12-23] MEDS: Cosyntropin 0.25 MG in 0.9% Normal Saline (Pres. free 1 ML 30 MG IV (06:13)
[2019-12-23 07:12] VITALS: BP 126/67; PULSE 55; RESP 18; TEMP 36.5; O2SAT 97
[2019-12-23 07:21] LABS: Thyroid Stim Hormone (TSH) 0.76 uIU/mL (0.358-3.74)
[2019-12-23] MEDS: Polyethylene Glycol 3350 17 GM PACKET PO (09:02)
[2019-12-23] MEDS: Famotidine 20 MG Tablet PO ×2 (09:03→21:52)
[2019-12-23] MEDS: Aspirin 81 MG TAB.CHEW PO ×2 (09:03→16:16)
[2019-12-23] MEDS: CARBAMAZEPINE 100 MG TAB.CHEW PO (09:03)
[2019-12-23] MEDS: amLODIPine 2.5 MG Tablet PO (09:03)
[2019-12-23] MEDS: Atenolol 25 MG Tablet PO ×2 (09:03→21:52)
[2019-12-23] MEDS: SODIUM CHLORIDE 1 GM TABLET PO ×2 (09:03→21:52)
[2019-12-23] MEDS: Mag Hydrox/Al Hydrox/Simeth 30 ML UDC PO (09:56)
[2019-12-23] MEDS: busPIRone 5 MG Tablet PO (13:32)
[2019-12-23] MEDS: carBAMazepine 200 MG Tablet PO (16:16)
[2019-12-23] MEDS: Ondansetron ODT 4 MG Tablet PO (17:20)
[2019-12-23 19:40] VITALS: BP 132/76; PULSE 62; RESP 16; TEMP 36.8; O2SAT 98
[2019-12-23] MEDS: 0.9% Saline Lock 10 ML Syringe IV (21:55)
[2019-12-24] MEDS: Acetaminophen 500 MG Tablet 1000 MG PO ×2 (05:25→12:54)
[2019-12-24] MEDS: busPIRone 5 MG Tablet 10 MG PO (05:25)
[2019-12-24 08:09] VITALS: BP 107/59; PULSE 55; RESP 16; TEMP 36.7; O2SAT 95
[2019-12-24 08:09] LABS: Hematocrit 32.8 % (37-47)
[2019-12-24 08:22] LABS: Anion Gap 4 (5-15); BUN 14 mg/dL (7-18); Calcium,Total 8.5 mg/dL (8.5-10.1); Chloride 96 mmol/L (98-107); Creatinine, Serum 0.88 mg/dL (0.55-1.02); EST Glomerular Filtration Rate 67 mL/min (>60); Est Glom Filt Rate - Afr Amer 81 mL/min (>60); Estimated Creatinine Clearance 40.29 ml/min; Glucose 142 mg/dL (74-106); Potassium 4.1 mmol/L (3.5-5.1); Sodium Level 128 mmol/L (136-145)
[2019-12-24] MEDS: CARBAMAZEPINE 100 MG TAB.CHEW PO (08:34)
[2019-12-24] MEDS: Famotidine 20 MG Tablet PO (08:34)
[2019-12-24] MEDS: Aspirin 81 MG TAB.CHEW PO (08:34)
[2019-12-24] MEDS: Atenolol 25 MG Tablet PO (08:34)
[2019-12-24] MEDS: amLODIPine 2.5 MG Tablet PO (08:34)
[2019-12-24] MEDS: SODIUM CHLORIDE 1 GM TABLET PO (08:34)
--- NOTE | 2019-12-24 11:00 | PCM.DC ---
- Discharge Diagnoses Current Active Problems: Current Active and Chronic Problems UTI (urinary tract infection) (Acute) Due to pseudomonas aeruginosa diagnosed on 12/04/2019 and treated with Levaquin Trigeminal neuralgia (Chronic) On Tegretol You will use the following diet at home:: No restrictions Your food should be the consistency of: Regular Your liquids should be the consistency of: Regular/Thin Discharge Activity: May Not Drive Weight Bearing Status: No weight bearing Keep extremity elevated above heart level: Right Leg Call your doctor if you observe: Fever of 101 or Higher, Coldness, Increased Pain - R leg, Numbness or Tingling - of the R leg, Inability to urinate, Inability to have a bowel movement, Shortness of breath, Dizziness, Chest pain, Increased palpitations (irregular heartbeat), Calf discomfort, Uncontrolled pain Additional Instructions: 1. Your sodium is low. A normal sodium is 135-145. Your sodium is now stable at 128.....it has been as low as 122 while you were in the hospital. You actually are not deficient in sodium....you have a mild excess of fluid and this dilutes out the sodium. This is being caused by the Tegretol(Carbamazepine). This drug increases the reabsorption of free water and dilutes the sodium. The treatment of this problem is primarily fluid restriction (usually to less than 800 cc/day). You can not stick to this strict of a restriction so we started Salt Pills twice a day. We have made you an appt to see the neurologist at the hospital here. He may be able to change the Tegretol to a drug for trigeminal neuralgia that does not cause low sodium and they you can likely discontinue the salt tabs and the fluid restriction. 2. The heart rate when you first came to us in the rehab unit was often in the 50's and sometimes dropped into the 40's. This low heart rate coupled with the low sodium is more likely than not what causes the episodic nausea, dizziness and passing out you have experienced at home. We changed the dose of the Atenolol to 25 mg twice a day almost 2 weeks prior to discharge and you have not had any palpitations and since the heart rate is up and the sodium is stable at 128 you have not had nausea and dizziness. I did have to add a second BP pill at a low dose and this is called Amlodipine. You will take it once a day and it does not slow the heart rate down. 3. I know that you do not consider yourself to be an anxious person Altagracia BUT, you are. your are always thinking 4 steps ahead.....which is not a bad thing but, you imagine the worst and then you perseverate on it. I know when you are by yourself and older it can be overwhelming at times. We started you on a medication called Buspar (Buspirone) to help with anxiety and you are actually doing better. When you do get anxious you get nauseated and lightheaded and sometimes you get a headache. The best results when treating anxiety or depression is to combine medicine and counselling.......the therapist will give you a new perspective and help you to learn how to calm yourself and focus on solutions so you don't spin your wheels. Medication alone does not often fix the problem. You can ask Dr. Sanchze for a referral to a therapist. 4. It was a pleasure meeting you Altagracia and I hope everything goes smoothly for you in your transition home. My cell number is [phone] if I can help you with anything. [facility]. [address] [facility]. [facility], [address]. [phone]. Carolyn Montiel and Alisa Blake are 2 of the therapists I have sent patient to and they are both empathetic and excellent therapists. Pending Tests on Discharge: none Allergies/Adverse Reactions: Allergies codeine Allergy (Verified 12/07/19 11:29) Unknown Medications to take at Discharge Acetaminophen [Tylenol] 1,000 mg PO Q8 tab 12/07/19 Carbamazepine [Tegretol] 100 mg PO DAILY@0800 tab 12/07/19 Carbamazepine [Tegretol] 200 mg PO DAILY@1700 tab 12/07/19 Cholecalciferol (VIT D3) [Vitamin D3] 2,000 unit PO DAILYCM tab 12/07/19 Famotidine [Pepcid] 20 mg PO BID tab 12/07/19 Mag Hydrox/Al Hydrox/Simeth [Mylanta II] 30 ml PO Q6H PRN PRN udc 12/07/19 Magnesium Hydroxide [Milk Of Magnesia] 30 ml PO .PRN X 1 PRN udc 12/07/19 Mupirocin [Bactroban] 1 applic TOPICAL BID tube 12/07/19 Senna/Docusate Sodium [Senokot-S] 2 tab PO BID tab 12/07/19 Zolpidem Tartrate [Ambien] 5 mg PO QHS PRN PRN tab 12/07/19 Aspirin [Aspirin, Baby] 81 mg PO BID #28 tab.chew 12/10/19 Amlodipine [Norvasc] 2.5 mg PO DAILY #30 tab 12/24/19 Atenolol [Tenormin (beta erma)] 25 mg PO BID #60 tab 12/24/19 Ondansetron [Zofran Odt] 4 mg PO Q6H PRN PRN #15 tab 12/24/19 Oxycodone [Oxyir] 5 mg PO Q4H PRN PRN 3 Days #20 tab 12/24/19 Sodium Chloride 1 gm PO BID #60 tab 12/24/19 busPIRone [Buspar] 10 mg PO TID #180 tab 12/24/19 The following prescriptions were given: busPIRone [Buspar] 10 mg PO TID #180 tab Transmission Status: [id number] Amlodipine [Norvasc] 2.5 mg PO DAILY #30 tab Transmission Status: [id number] Oxycodone [Oxyir] 5 mg PO Q4H PRN PRN 3 Days #20 tab PRN Reason: Pain Score 4-10/10 Transmission Status: [id number] Sodium Chloride 1 gm PO BID #60 tab Transmission Status: [id number] Atenolol [Tenormin (beta erma)] 25 mg PO BID #60 tab Transmission Status: [id number] Ondansetron [Zofran Odt] 4 mg PO Q6H PRN PRN #15 tab PRN Reason: NAUSEA Transmission Status: [id number] Primary Care Physician: Orlando Sanchez, [Primary Care Provider] - Please follow up with your Primary Care Physician in: Dr. Orlando Sanchez, patient requests to make own follow up Test Results: Test results from this visit will be discussed in further detail at your follow-up appointment, if applicable. Please Follow Up With: Dr Gibbons When: tuesday03/09/20 at 2 PM Please Follow Up With: Dr. Ady Flynn - Neurologist When: TuesdayJanuary 19 at 8:30 AM Proposed Discharge Date: 12/24/19
--- NOTE | 2019-12-24 11:54 | PCM.DC.SUM ---
Discharge Date and Diagnosis - Problem List Patient Problems: Active and Suspected Problems SIADH (syndrome of inappropriate ADH production) (Acute) Hyponatremia (Acute) Date of Admission: 12/10/19 Date of Discharge: 12/24/19 - Primary Discharge Diagnosis Active and Suspected Problems Traumatic FX of the R distal fibula due to a fall S/P ORIF of the R ankle fracture SIADH (syndrome of inappropriate ADH production) (Acute) - due to Tegretol which increase ADH Hyponatremia (Acute) - due to SIADH Bradycardia UTI -due to pseudomonas aeruginosa treated with Levaquin 10 days - Secondary Discharge Diagnosis Chronic Problems DALLAS (obstructive sleep apnea) (Chronic) Untreated - could not tolerate the mask Mitral valve prolapse (Chronic) GERD (gastroesophageal reflux disease) (Chronic) History of rheumatic fever as a child (Chronic) Anxiety (Chronic) Trigeminal neuralgia (Chronic) On Tegretol Vitamin D deficiency Hospital Course and Treatment Imaging Results: Laboratory Tests 12/24/19 12/24/19 12/23/19 Range/Units 07:54 07:54 06:58 WBC (4.4-11.0) K/mm3 RBC (4.2-5.4) M/mm3 Hgb 11.0 L (12.0-15.0) g/dL Hct 32.8 L (37-47) % MCV (81-99) fL MCH (27.0-32.0) pg MCHC (32-36) g/dL RDW Std Deviation (35.1-43.9) fl RDW Coeff of Tamela (11.6-14.6) % Plt Count (150-450) K/mm3 MPV (6.2-12.0) fl Sodium 128 L (136-145) mmol/L Potassium 4.1 (3.5-5.1) mmol/L Chloride 96 L (98-107) mmol/L Carbon Dioxide 28.0 (21.0-32.0) mmol/L Anion Gap 4 L (5-15) BUN 14 (7-18) mg/dL Creatinine 0.88 (0.55-1.02) mg/dL Estim Creat Clear Calc 40.29 ml/min Est GFR (MDRD) Af Amer 81 (>60) mL/min Est GFR (MDRD) Non-Af 67 (>60) mL/min BUN/Creatinine Ratio 16.0 (10-20) RATIO Glucose 142 H (74-106) mg/dL Serum Osmolality (280-301) mOsm/KG Calcium 8.5 (8.5-10.1) mg/dL Phosphorus (2.5-4.9) mg/dL Magnesium (1.6-2.6) mg/dL TSH (0.358-3.74) uIU/mL Cortisol 30.90 H (3.09-22.40) ug/dL Urine Osmolality (50 - ) mOsm/KG Ur Random Sodium (Not Establ.) mmol/L Urine Creatinine (NO RANGE EST.) mg/dL 12/23/19 12/23/19 12/20/19 Range/Units 06:10 06:10 05:25 WBC (4.4-11.0) K/mm3 RBC (4.2-5.4) M/mm3 Hgb (12.0-15.0) g/dL Hct (37-47) % MCV (81-99) fL MCH (27.0-32.0) pg MCHC (32-36) g/dL RDW Std Deviation (35.1-43.9) fl RDW Coeff of Tamela (11.6-14.6) % Plt Count (150-450) K/mm3 MPV (6.2-12.0) fl Sodium 128 L (136-145) mmol/L Potassium 4.3 (3.5-5.1) mmol/L Chloride 96 L (98-107) mmol/L Carbon Dioxide 27.0 (21.0-32.0) mmol/L Anion Gap 5 (5-15) BUN 11 (7-18) mg/dL Creatinine 0.78 (0.55-1.02) mg/dL Estim Creat Clear Calc 35.45 ml/min Est GFR (MDRD) Af Amer 93 (>60) mL/min Est GFR (MDRD) Non-Af 77 (>60) mL/min BUN/Creatinine Ratio 14.1 (-20) RATIO Glucose 99 (74-106) mg/dL Serum Osmolality (280-301) mOsm/KG Calcium 8.5 (8.5-10.1) mg/dL Phosphorus (2.5-4.9) mg/dL Magnesium (1.6-2.6) mg/dL TSH 0.76 (0.358-3.74) uIU/mL Cortisol 12.70 (3.09-22.40) ug/dL Urine Osmolality (50 - ) mOsm/KG Ur Random Sodium (Not Establ.) mmol/L Urine Creatinine (NO RANGE EST.) mg/dL 12/17/19 12/17/19 12/17/19 Range/Units 12:00 12:00 12:00 WBC (4.4-11.0) K/mm3 RBC (4.2-5.4) M/mm3 Hgb (12.0-15.0) g/dL Hct (37-47) % MCV (81-99) fL MCH (27.0-32.0) pg MCHC (32-36) g/dL RDW Std Deviation (35.1-43.9) fl RDW Coeff of Tamela (11.6-14.6) % Plt Count (150-450) K/mm3 MPV (6.2-12.0) fl Sodium (136-145) mmol/L Potassium (3.5-5.1) mmol/L Chloride (98-107) mmol/L Carbon Dioxide (21.0-32.0) mmol/L Anion Gap (5-15) BUN (7-18) mg/dL Creatinine (0.55-1.02) mg/dL Estim Creat Clear Calc ml/min Est GFR (MDRD) Af Amer (>60) mL/min Est GFR (MDRD) Non-Af (>60) mL/min BUN/Creatinine Ratio (10-20) RATIO Glucose (74-106) mg/dL Serum Osmolality (280-301) mOsm/KG Calcium (8.5-10.1) mg/dL Phosphorus (2.5-4.9) mg/dL Magnesium (1.6-2.6) mg/dL TSH (0.358-3.74) uIU/mL Cortisol (3.09-22.40) ug/dL Urine Osmolality 331 (50 - ) mOsm/KG Ur Random Sodium 55 (Not Establ.) mmol/L Urine Creatinine 53.40 (NO RANGE EST.) mg/dL 12/17/19 12/17/19 12/13/19 Range/Units 09:15 05:20 05:25 WBC (4.4-11.0) K/mm3 RBC (4.2-5.4) M/mm3 Hgb (12.0-15.0) g/dL Hct (37-47) % MCV (81-99) fL MCH (27.0-32.0) pg MCHC (32-36) g/dL RDW Std Deviation (35.1-43.9) fl RDW Coeff of Tamela (11.6-14.6) % Plt Count (150-450) K/mm3 MPV (6.2-12.0) fl Sodium 128 L 133 L (136-145) mmol/L Potassium 4.1 4.1 (3.5-5.1) mmol/L Chloride 94 L 101 (98-107) mmol/L Carbon Dioxide 28.0 26.0 (21.0-32.0) mmol/L Anion Gap 6 6 (5-15) BUN 10 8 (7-18) mg/dL Creatinine 0.75 0.66 (0.55-1.02) mg/dL Estim Creat Clear Calc 35.45 35.45 ml/min Est GFR (MDRD) Af Amer 96 112 (>60) mL/min Est GFR (MDRD) Non-Af 80 92 (>60) mL/min BUN/Creatinine Ratio 13.3 12.0 (10-20) RATIO Glucose 100 85 (74-106) mg/dL Serum Osmolality 262 L (280-301) mOsm/KG Calcium 8.7 8.1 L (8.5-10.1) mg/dL Phosphorus (2.5-4.9) mg/dL Magnesium (1.6-2.6) mg/dL TSH (0.358-3.74) uIU/mL Cortisol (3.09-22.40) ug/dL Urine Osmolality (50 - ) mOsm/KG Ur Random Sodium (Not Establ.) mmol/L Urine Creatinine (NO RANGE EST.) mg/dL 12/12/19 12/12/19 Range/Units 05:20 05:20 WBC 3.8 L (4.4-11.0) K/mm3 RBC 3.63 L (4.2-5.4) M/mm3 Hgb 10.9 L (12.0-15.0) g/dL Hct 31.5 L (37-47) % MCV 86.8 (81-99) fL MCH 30.0 (27.0-32.0) pg MCHC 34.6 (32-36) g/dL RDW Std Deviation 38.3 (35.1-43.9) fl RDW Coeff of Tamela 11.9 (11.6-14.6) % Plt Count 272 (150-450) K/mm3 MPV 8.8 (6.2-12.0) fl Sodium 122 L (136-145) mmol/L Potassium 4.1 (3.5-5.1) mmol/L Chloride 89 L (98-107) mmol/L Carbon Dioxide 28.0 (21.0-32.0) mmol/L Anion Gap 5 (5-15) BUN 10 (7-18) mg/dL Creatinine 0.72 (0.55-1.02) mg/dL Estim Creat Clear Calc 35.45 ml/min Est GFR (MDRD) Af Amer 103 (>60) mL/min Est GFR (MDRD) Non-Af 85 (>60) mL/min BUN/Creatinine Ratio 14.0 (10-20) RATIO Glucose 106 (74-106) mg/dL Serum Osmolality (280-301) mOsm/KG Calcium 8.5 (8.5-10.1) mg/dL Phosphorus 3.6 (2.5-4.9) mg/dL Magnesium 2.0 (1.6-2.6) mg/dL TSH (0.358-3.74) uIU/mL Cortisol (3.09-22.40) ug/dL Urine Osmolality (50 - ) mOsm/KG Ur Random Sodium (Not Establ.) mmol/L Urine Creatinine (NO RANGE EST.) mg/dL none Operations: None, - - ORIF of right distal fibula Procedures: - - ORIF of R distal fibula fracture on 12/07/[address] Gibbons Summary of Care Provided: The patient is a 74 year old F with a past medical history of mitral valve prolapse, rheumatic fever as a child, GERD, obstructive sleep apnea (not on CPAP due to intolerance of the mask), obesity, vitamin D deficiency and recent comminuted fracture of the right distal fibula secondary to a fall. The initial x-ray reported an avulsion fracture of the left talus however follow-up x-rays did not confirm this and she was diagnosed with a sprain of the left ankle per Dr. Gibbons. She was discharged from the inpatient rehab unit on 12/07/2019 and taken to surgery on 12/07/2019 for ORIF of the right distal fibula fracture by Dr. Gibbons. She returned to the rehab unit on 12/10/2019 for greater than 3 hours of therapy daily with a goal of returning home at or near her prior level of independence. She lives in an assisted living facility by herself and has no steps to enter her home. Her apartment has grab bars. She was independent with her ADLs, mobility and driving prior to hospitalization. Altagracia started c/o nausea and had vomiting on 12/11/19 and a BMP was drawn and showed a sodium of 122. She had been hyponatremic in rehab prior to ORIF and the FeNA at that time was < 1 and she was treated with NS with good results. TSH and Cortisol at that time were normal. She was ordered 2 liters of NS IV and the sodium came up to 133. A BMP was checked on 12/17 and the sodium had dropped once again to 128. A serum and urine osmolality were done and the urine was less than maximally dilute and this was consistent with SIADH. She was placed on a fluid restriction of 1200 cc's daily. She did not feel that she could go any lower on the fluid restriction because, she was worried about getting dehydrated. She always drinks a lot of water at home. This may be the etiology of the episodic dizziness and N/V at home resulting in near syncopal episodes and falls. After a few days of fluid restriction the serum sodium was 128 again. She once again did not want to decrease the fluid intake to less than 1200 cc/day so salt tabs were added to the drug regimen and on the day of discharge the sodium is stable at 128. It turns out that Tegretol causes an increase in ADH and can lead to hyponatremia. She has a hx of trigeminal neuralgia and I did not think it appropriate for me to change the drug so an appt was made for her to follow up with Dr. Flynn from neurology on 01/22/20 at 08:30 AM. Until that time she will continue to limit her fluids to 1220 cc/day and will also continue the salt tabs. Altagracia was very anxious from the time she first arrived in rehab. She tends to worry and perseverate on problems that could potentially arise. When this happens she gets a HERRERA and nausea and abd pain and alternating diarrhea and constipation. I tend to think she has IBS. She was started on Buspar and the anxiety improved. she had no adverse effects with Buspar. The dose was gradually increased and at the time of discharge she is on 10 mg TID. She is sleeping better and she seems better able to handle stress. I recommended to her that she consider counselling and recommended the [facility]. Her HR at presentation to the rehab unit was in the 50's. she stated it had been as low as 44 at home. Because of the near syncopal episodes at home the Atenolol was decreased to 25 mg BID and she has been on this for 2 weeks prior to DC with no palpitations. she was discharged on 25 mg BID. She will follow up with Cardiology. She had a UTI during the first admission to the rehab unit and the culture grew pseudomonas aeruginosa. She received 10 days of treatment with Levaquin 250 mg daily. Dysuria resolved within 48 hours after initiation of the antibiotic. She was treated for 10 days because she had a Becker in for the ORIF. Post-operatively she was given ASA [address] Gibbons for DVT prophylaxis. She was discharged from the rehab unit on 12/24/19 on medications that are listed elsewhere on this DC summary. Her RX's were faxed to [facility] in [place]. She has an appt with Dr. Gibbons at 2 PM on the day of DC and she is hoping she will get the cast off and will be able transition to a boot. She will be going home at [place] and [facility] has been arranged by the . She will follow up with Dr. Sanchez in 1 week post DC. She will not be allowed to drive until the boot is removed and PT approves her to drive. PHYSICAL EXAM: GENERAL: alert, oriented X 3, Cooperative, NAD ORAL: moist mucosa, no mucosal lesions NECK: No JVD, supple, trachea midline LUNGS: CTA, symmetric chest expansion HEART: RRR, Normal S1 and S2, no rub, no gallop, no MM, no mitral click appreciated ABDOMEN: soft, NT, ND, BS present, no guarding with palpation EXTREMITIES: no edema, no cyanosis, no calf tenderness, the toes are warm with good cap refill. She has intact sensation in both feet. SKIN: No rashes, no breakdown NEUROLOGIC: no focal neurologic deficits PSYCH: appropriate, normal affect, pleasant, less anxious than at admission This note was generated with [employer] dictation software. It may contain incorrect words, spelling, and punctuation that were not noted in checking the note before signing. Patient Problems: Active and Suspected Problems SIADH (syndrome of inappropriate ADH production) (Acute) Hyponatremia (Acute) - Physical Exam Vitals/I&O's: Vital Signs Temp Pulse Resp BP Pulse Ox 98.1 F 55 L 16 107/59 L 95 12/24/19 08:09 12/24/19 08:09 12/24/19 08:09 12/24/19 08:09 12/24/19 08:09 Oxygen Delivery Method Room Air Weight: 153 lb 3.54 oz Body Mass Index (BMI) 30.8 Intake and Output for Last 24 Hours 12/22/19 12/23/19 12/24/19 23:59 23:59 23:59 Intake Total 1300 / 1300 801 / 801 120 / 120 Output Total 2250 / 2250 1100 / 1100 300 / 300 Balance -950 / -950 -299 / -299 -180 / -180 Laboratory Results 12/24/19 07:54: Hgb 11.0 L, Hct 32.8 L 12/24/19 07:54: Sodium 128 L, Potassium 4.1, Chloride 96 L, Carbon Dioxide 28.0, Anion Gap 4 L, BUN 14, Creatinine 0.88, Estim Creat Clear Calc 40.29, Est GFR (MDRD) Af Amer 81, Est GFR (MDRD) Non-Af 67, BUN/Creatinine Ratio 16.0, Glucose 142 H, Calcium 8.5 Current Medications Acetaminophen (Tylenol) 1,000 mg PO Q8 [facility] Last Admin: 12/24/19 05:25 Dose: 1,000 mg Documented by: Al Hydroxide/Mg Hydroxide (Mylanta Ii) 30 ml PO Q6H PRN PRN PRN Reason: HEARTBURN Last Admin: 12/23/19 09:56 Dose: 30 ml Documented by: Amlodipine Besylate (Norvasc) 2.5 mg PO DAILY [facility] Last Admin: 12/24/19 08:34 Dose: 2.5 mg Documented by: Aspirin (Aspirin, Baby) 81 mg PO BID@0800,1700 [facility] Last Admin: 12/24/19 08:34 Dose: 81 mg Documented by: Atenolol (Tenormin (Beta Sagrario)) 25 mg PO BID [facility] Last Admin: 12/24/19 08:34 Dose: 25 mg Documented by: Bisacodyl (Dulcolax) 10 mg RECTAL .PRN X 1 PRN PRN Reason: Constipation Last Admin: 12/15/19 04:43 Dose: 10 mg Documented by: Buspirone HCl (Buspar) 10 mg PO BID@0600,2200 [facility] Last Admin: 12/24/19 05:25 Dose: 10 mg Documented by: Buspirone HCl (Buspar) 5 mg PO DAILY@1400 [facility] Last Admin: 12/23/19 13:32 Dose: 5 mg Documented by: Carbamazepine (Tegretol) 200 mg PO DAILY@1700 [facility] Last Admin: 12/23/19 16:16 Dose: 200 mg Documented by: Carbamazepine (Carbamazepine) 100 mg PO DAILY@0800 [facility] Last Admin: 12/24/19 08:34 Dose: 100 mg Documented by: [facility] ([facility]itamin [facility]) [facility] Last Admin: 12/24/19 08:34 Dose: 2,000 unit Documented by: Famotidine (Pepcid) 20 mg PO BID [facility] Last Admin: 12/24/19 08:34 Dose: 20 mg Documented by: Magnesium Hydroxide (Milk Of Magnesia) 30 ml PO .PRN X 1 PRN PRN Reason: Constipation Last Admin: 12/14/19 16:35 Dose: 30 ml Documented by: Ondansetron HCl (Zofran Odt) 4 mg PO Q6H PRN PRN PRN Reason: NAUSEA Last Admin: 12/23/19 17:20 Dose: 4 mg Documented by: Oxycodone HCl (Oxyir) 5 - 10 mg PO Q4H PRN PRN PRN Reason: Pain Score 4-10/10 Last Admin: 12/22/19 01:15 Dose: 5 mg Documented by: Polyethylene Glycol (Miralax) 17 gm PO DAILY [facility] Last Admin: 12/24/19 08:33 Dose: Not Given Documented by: Promethazine HCl (Phenergan Suppository) 25 mg RECTAL Q4H PRN PRN PRN Reason: NAUSEA/VOMITING Last Admin: 12/12/19 10:54 Dose: 25 mg Documented by: Sodium Chloride () 10 - 40 ml IV UD PRN PRN Reason: SALINE FLUSH Last Admin: 12/23/19 21:55 Dose: 10 ml Documented by: Sodium Chloride (Sodium Chloride) 1 gm PO BID [facility] Last Admin: 12/24/19 08:34 Dose: 1 gm Documented by: Sodium Chloride () 10 - 40 ml IV UD PRN PRN Reason: SALINE FLUSH Zolpidem Tartrate (Ambien (Generic)) 5 mg PO QHS PRN PRN PRN Reason: INSOMNIA Discharge Activity: May Not Drive Weight Bearing Status: No weight bearing Keep extremity elevated above heart level: Right Leg Call your doctor if you observe: Fever of 101 or Higher, Coldness, Increased Pain - R leg, Numbness or Tingling - of the R leg, Inability to urinate, Inability to have a bowel movement, Shortness of breath, Dizziness, Chest pain, Increased palpitations (irregular heartbeat), Calf discomfort, Uncontrolled pain Home Medications: Medications to take at Discharge Acetaminophen [Tylenol] 1,000 mg PO Q8 tab 12/07/19 Carbamazepine [Tegretol] 100 mg PO DAILY@0800 tab 12/07/19 Carbamazepine [Tegretol] 200 mg PO DAILY@1700 tab 12/07/19 Cholecalciferol (VIT D3) [Vitamin D3] 2,000 unit PO DAILYCM tab 12/07/19 Famotidine [Pepcid] 20 mg PO BID tab 12/07/19 Mag Hydrox/Al Hydrox/Simeth [Mylanta II] 30 ml PO Q6H PRN PRN udc 12/07/19 Magnesium Hydroxide [Milk Of Magnesia] 30 ml PO .PRN X 1 PRN udc 12/07/19 Mupirocin [Bactroban] 1 applic TOPICAL BID tube 12/07/19 Senna/Docusate Sodium [Senokot-S] 2 tab PO BID tab 12/07/19 Zolpidem Tartrate [Ambien] 5 mg PO QHS PRN PRN tab 12/07/19 Aspirin [Aspirin, Baby] 81 mg PO BID #28 tab.chew 12/10/19 Amlodipine [Norvasc] 2.5 mg PO DAILY #30 tab 12/24/19 Atenolol [Tenormin (beta sagrario)] 25 mg PO BID #60 tab 12/24/19 Ondansetron [Zofran Odt] 4 mg PO Q6H PRN PRN #15 tab 12/24/19 Oxycodone [Oxyir] 5 mg PO Q4H PRN PRN 3 Days #20 tab 12/24/19 Sodium Chloride 1 gm PO BID #60 tab 12/24/19 busPIRone [Buspar] 10 mg PO TID #180 tab 12/24/19 Following Prescrptions Were Given to Patient: busPIRone [Buspar] 10 mg PO TID #180 tab Transmission Status: [id number] Amlodipine [Norvasc] 2.5 mg PO DAILY #30 tab Transmission Status: [id number] Oxycodone [Oxyir] 5 mg PO Q4H PRN PRN 3 Days #20 tab PRN Reason: Pain Score 4-1010 Transmission Status: [id number] Sodium Chloride 1 gm PO BID #60 tab Transmission Status: [id number] Atenolol [Tenormin (beta sagrario)] 25 mg PO BID #60 tab Transmission Status: [id number] Ondansetron [Zofran Odt] 4 mg PO Q6H PRN PRN #15 tab PRN Reason: NAUSEA Transmission Status: [id number] Primary Care Physician: Orlando Sanchez, DO [Primary Care Provider] - Please follow up with your Primary Care Physician in: Dr. Orlando Sanchez, patient requests to make own follow up Please Follow Up With: Dr Gibbons When: tuesday03/09/20 at 2 PM Please Follow Up With: Dr. Ady Flynn - Neurologist When: TuesdayJanuary 19 at 8:30 AM Disposition: Home with Home Health Minutes spent on discharge:: 40 Patient Condition:: Good Medical Necessity - Tobacco Use Smoking Status: Never smoker Tobacco Use: Non-smoker Meaningful Use Info Meaningful Use Diagnoses (Choose all that apply): None applicable Code Visit Inpatient E&M: 53001 Disch Hosp
[2019-12-24] MEDS: busPIRone 5 MG Tablet PO (12:54)
[2019-12-24 13:30] VITALS: BP 107/59; PULSE 55; RESP 16; TEMP 36.7; O2SAT 95
--- NOTE | 2019-12-24 13:30 | NURSING ---
Verbalized understanding to discharge instructions. Patient will make PCP appointment.
--- NOTE | 2019-12-25 18:09 | PCM.PN.BLA ---
Progress Note I called Altagracia and home to check on her and see if she had any questions. She is doing OK. She got the wrong wheelchair and it has no attachment to elevate her R leg and she sat in one spot with the leg dependent today and the pain increased......it was relieved with and OXY IR. No nausea and no lightheadedness. She feels safe in her home. They will be delivering another WC to her. She was seen by someone form [facility] today and they are going to get her set up for PT/OT. She sounded in good spirits. She had no questions.
== END 2019-12-24 13:30 | disposition home health service (06) | DRG 560 ==
PROVIDERS: Admitting Provider Internal Medicine; PCP Family Medicine; Referring Provider Internal Medicine; Visit Provider Internal Medicine
DX: S82.831D Other fracture of upper and lower end of right fibula, subsequent encounter for closed fracture with routine healing (principal); E22.2 Syndrome of inappropriate secretion of antidiuretic hormone; W19.XXXD Unspecified fall, subsequent encounter; G50.0 Trigeminal neuralgia; G47.33 Obstructive sleep apnea (adult) (pediatric); K21.9 Gastro-esophageal reflux disease without esophagitis; N30.90 Cystitis, unspecified without hematuria; B96.5 Pseudomonas (aeruginosa) (mallei) (pseudomallei) as the cause of diseases classified elsewhere; F41.9 Anxiety disorder, unspecified; E55.9 Vitamin D deficiency, unspecified; K59.00 Constipation, unspecified; E86.0 Dehydration; I10 Essential (primary) hypertension; E66.9 Obesity, unspecified; Z68.30 Body mass index [BMI] 30.0-30.9, adult; Z71.3 Dietary counseling and surveillance
CPT/HCPCS: 36415; 80048; 82533; 82570; 83735; 83930; 83935; 84100; 84300; 84443; 85014; 85018; 85027; 97110; 97116; 97162; 97166; 97530; 97535; 97542; 97802; 99251; J7030; A4216; G0463; J0834; J3490

== ENCOUNTER → 2020-01-21 | Outpatient (CLI) | payer MEDICARE, SELFPAY ==
[2020-01-17 15:35] VITALS: BMI 30.8
--- NOTE | 2020-01-21 13:01 | RAD_ITS ---
STUDY: X-RAY - RIGHT ANKLE REASON FOR EXAM: Female, 74 years old. PAIN TECHNIQUE: 3 view(s) of the ankle. COMPARISON: None. FINDINGS: Postoperative changes with fixation plate and screws through the distal fibula. Otherwise normal visualized distal tibia and fibula. Normal medial and lateral malleoli. Mild degenerative arthrosis of the tibiotalar articulation otherwise normal ankle mortise. Normal visualized talus and calcaneus. The visualized subtalar, talonavicular, calcaneocuboid and tarsal articulations are normal. Mild soft tissue swelling along the anterior ankle. RAD/Ankle min 3 Views IMPRESSION: Postoperative changes as described. 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 Electronically Signed: Otilia Villegas MD at 0:50 EDT , Service support ,
== END | disposition home or self-care (01) ==
LOC: HPRAD 13:01
PROVIDERS: PCP Family Medicine; Referring Provider Orthopaedic Surgery; Visit Provider Orthopaedic Surgery
DX: M25.571 Pain in right ankle and joints of right foot (principal)
CPT/HCPCS: 73610

== ENCOUNTER → 2020-03-03 | Outpatient (CLI) | payer MEDICARE, SELFPAY ==
[2020-01-21 13:23] VITALS: BMI 30.8
--- NOTE | 2020-03-03 11:31 | RAD_ITS ---
STUDY: X-RAY - RIGHT ANKLE REASON FOR EXAM: Female, 74 years old. Post op TECHNIQUE: 3 view(s) of the ankle. COMPARISON: Comparison is made with prior examination dated January 21, 2020. FINDINGS: The patient is status post ORIF of the distal fibular fracture. The fracture is healed. Normal medial and lateral malleoli. Normal tibiotalar articulation and ankle mortise. Small plantar spur. The visualized subtalar, talonavicular, calcaneocuboid and tarsal articulations are normal. Soft tissue swelling overlying the lateral malleolus. RAD/Ankle min 3 Views IMPRESSION: Status post ORIF of the distal fibula. The fracture is healed. Residual soft tissue swelling. Electronically Signed: Renaldo Machuca, at 15:04 EDT , Service support ,
== END | disposition home or self-care (01) ==
LOC: RAD 11:31
PROVIDERS: PCP Family Medicine; Referring Provider Orthopaedic Surgery; Visit Provider Orthopaedic Surgery
DX: Z47.89 Encounter for other orthopedic aftercare (principal)
CPT/HCPCS: 73610

== ENCOUNTER → 2020-03-21 | Outpatient (CLI) | payer MEDICARE, SELFPAY ==
[2020-03-06 15:30] VITALS: BMI 29.0
[2020-03-20 17:19] VITALS: BMI 30.8
--- NOTE | 2020-03-21 12:49 | ECHOD_ITS ---
Reason For Study: MVP Procedure This was a 2D Doppler, Color Flow transthoracic echocardiogram. Exam performed in department. Left Ventricle Normal LV size. Left ventricular systolic function is normal. The estimated ejection fraction is 65 %. No regional wall motion abnormalities noted. Right Ventricle Normal RV size. Normal systolic function. Atria Normal left atrium. Normal right atrium. No doppler evidence for ASD. Mitral Valve There is no mitral annular calcification. Mild diffuse mitral valve thickening. Mild mitral valve prolapse. Mild (1+) mitral valve insufficiency. Tricuspid Valve Normal tricuspid valve. Mild tricuspid valve insufficiency. Right ventricular systolic pressure estimated to be 23 mmHg. Aortic Valve Trisinus/trileaflet aortic valve. Mild diffuse aortic valve thickening. Pulmonic Valve The pulmonic valve is not well visualized. Trivial pulmonic valve insufficiency. Great Vessels Normal sized aortic root. Pericardium/Pleural No pericardial effusion. MMode/2D Measurements & Calculations LVIDd: 4.4 cm IVSd: 0.90 cm Ao root diam: 2.9 cm LVIDs: 2.9 cm LVPWd: 0.91 cm RVDd: 3.4 cm FS: 33.2 % LAV(MOD-bp): 61.3 ml LA A4 area: 18.5 cm2 LA dimension(2D): 3.3 cm LAV(MOD-bp) Indexed: 37.9 ml/m2 LAV(MOD-sp2): 56.3 ml LAV(MOD-sp4): 55.7 ml RA A4 area: 14.2 cm2 Time Measurements MV dec time: 0.17 sec Doppler Measurements & Calculations MV E max frank: 90.1 cm/sec Lat Peak E' Frank: 9.2 cm/sec Med Peak E' Frank: 6.3 cm/sec MV A max frank: 77.8 cm/sec E/E' lat: 9.8 E/E' med: 14.2 MV E/A: 1.2 Ao V2 max: 126.7 cm/sec LV V1 max: 113.7 cm/sec PA V2 max: 107.1 cm/sec Ao max P.4 mmHg LV V1 max P.2 mmHg PI dec slope: 181.2 cm/sec2 TR max frank: 224.7 cm/sec TR max P.2 mmHg Interpretation Summary Left ventricular systolic function is normal. The estimated ejection fraction is 65 %. Mild diffuse mitral valve thickening. Mild mitral valve prolapse. Mild (1+) mitral valve insufficiency. Mild tricuspid valve insufficiency. Mild diffuse aortic valve thickening. Trivial pulmonic valve insufficiency. Right ventricular systolic pressure estimated to be 23 mmHg. Transmitral diastolic flow velocities suggest diastolic dysfunction (pseudonormal pattern). Ordering Physician: Mick Milton Referring Physician: Orlando Sanchez Performed By: Sultana Dill AKILAH, RVT
== END | disposition home or self-care (01) ==
PROVIDERS: PCP Family Medicine; Referring Provider Internal Medicine Cardiovascular Disease; Visit Provider Internal Medicine Cardiovascular Disease
DX: I34.1 Nonrheumatic mitral (valve) prolapse (principal); R00.1 Bradycardia, unspecified; R55 Syncope and collapse; I10 Essential (primary) hypertension
CPT/HCPCS: 93225; 93226; 93306

== ENCOUNTER → 2020-05-22 | Outpatient (CLI) | payer MEDICARE, SELFPAY ==
[2020-05-22 14:07] VITALS: BMI 28.2
[2020-05-22 15:05] LABS: BUN 19 mg/dL (7-18); Creatinine, Serum 1.02 mg/dL (0.55-1.02); EST Glomerular Filtration Rate 56 mL/min (>60); Est Glom Filt Rate - Afr Amer 68 mL/min (>60); Sodium Level 141 mmol/L (136-145)
== END | disposition home or self-care (01) ==
LOC: LAB 14:08
PROVIDERS: PCP Family Medicine; Referring Provider Psychiatry & Neurology Neurology; Visit Provider Psychiatry & Neurology Neurology
DX: G50.0 Trigeminal neuralgia (principal)
CPT/HCPCS: 36415; 82565; 84295; 84520

== ENCOUNTER → 2020-07-28 | Outpatient (CLI) | payer MEDICARE, SELFPAY ==
[2020-07-16 09:43] VITALS: BMI 30.8
[2020-07-28 10:56] LABS: Anion Gap 5 (5-15); BUN 16 mg/dL (7-18); BUN/Creat Ratio 16.8 RATIO (10-20); Calcium,Total 8.8 mg/dL (8.5-10.1); Chloride 99 mmol/L (98-107); Creatinine, Serum 0.96 mg/dL (0.55-1.02); EST Glomerular Filtration Rate 61 mL/min (>60); Est Glom Filt Rate - Afr Amer 73 mL/min (>60); Glucose 96 mg/dL (74-106); Potassium 4.3 mmol/L (3.5-5.1); Sodium Level 135 mmol/L (136-145)
== END | disposition home or self-care (01) ==
LOC: LAB 08:41
PROVIDERS: PCP Family Medicine; Referring Provider Psychiatry & Neurology Neurology; Visit Provider Psychiatry & Neurology Neurology
DX: E87.1 Hypo-osmolality and hyponatremia (principal); G50.0 Trigeminal neuralgia
CPT/HCPCS: 36415; 80048

== ENCOUNTER → 2020-11-17 11:03 | Outpatient (CLI) | payer MEDICARE, SELFPAY ==
[2020-11-17 10:26] VITALS: BMI 29.0
[2020-11-17 13:15] LABS: Anion Gap 7 (5-15); BUN 16 mg/dL (7-18); Chloride 102 mmol/L (98-107); Creatinine, Serum 0.94 mg/dL (0.55-1.02); EST Glomerular Filtration Rate 62 mL/min (>60); Est Glom Filt Rate - Afr Amer 75 mL/min (>60); Glucose 85 mg/dL (74-106); Potassium 4.4 mmol/L (3.5-5.1); Sodium Level 136 mmol/L (136-145)
== END ==
PROVIDERS: PCP Family Medicine; Referring Provider Physician Assistant Medical; Visit Provider Physician Assistant Medical
DX: E87.1 Hypo-osmolality and hyponatremia (principal); R55 Syncope and collapse
CPT/HCPCS: 36415; 80048

== ENCOUNTER → 2021-01-28 12:32 | Outpatient (CLI) | payer MEDICARE, SELFPAY ==
[2020-11-17 10:26] VITALS: BMI 29.0
[2021-01-28 13:31] LABS: Hematocrit 34.9 % (37-47); Hemoglobin 11.3 g/dL (12.0-15.0); Mean Corp Hgb Conc 32.4 g/dL (32-36); Mean Corpuscular Hgb 29.8 pg (27.0-32.0); Mean Corpuscular Volume 92.1 fL (81-99); Mean Platelet Vol. 9.9 fl (6.2-12.0); Platelet Count 213 K/mm3 (150-450); RBC Distribution Width CV 12.7 % (11.6-14.6); Red Blood Count 3.79 M/mm3 (4.2-5.4)
[2021-01-28 14:12] LABS: Anion Gap 2 (5-15); BUN 17 mg/dL (7-18); BUN/Creat Ratio 18.1 RATIO (10-20); CRP 6.03 mg/L (0.0-3.0); Calcium,Total 8.9 mg/dL (8.5-10.1); Chloride 105 mmol/L (98-107); Creatinine, Serum 0.94 mg/dL (0.55-1.02); EST Glomerular Filtration Rate 62 mL/min (>60); Est Glom Filt Rate - Afr Amer 75 mL/min (>60); Glucose 95 mg/dL (74-106); Sodium Level 139 mmol/L (136-145); Thyroid Stim Hormone (TSH) 1.29 uIU/mL (0.358-3.74)
== END ==
PROVIDERS: PCP Family Medicine; Referring Provider Family Medicine; Visit Provider Family Medicine
DX: E22.2 Syndrome of inappropriate secretion of antidiuretic hormone (principal); I10 Essential (primary) hypertension; M79.10 Myalgia, unspecified site; R53.1 Weakness
CPT/HCPCS: 36415; 80048; 84443; 85027; 86140

== ENCOUNTER → 2021-08-24 09:15 | Outpatient (CLI) | payer MEDICARE, SELFPAY ==
[2021-08-24 11:24] LABS: Anion Gap 5 (5-15); BUN 14 mg/dL (7-18); BUN/Creat Ratio 15.4 RATIO (10-20); Calcium,Total 9.1 mg/dL (8.5-10.1); Chloride 105 mmol/L (98-107); Creatinine, Serum 0.91 mg/dL (0.55-1.02); EST Glomerular Filtration Rate 64 mL/min (>60); Est Glom Filt Rate - Afr Amer 77 mL/min (>60); Glucose 112 mg/dL (74-106); Potassium 4.1 mmol/L (3.5-5.1); Sodium Level 138 mmol/L (136-145)
== END ==
PROVIDERS: PCP Family Medicine; Visit Provider Nurse Practitioner Family
DX: E22.2 Syndrome of inappropriate secretion of antidiuretic hormone (principal)
CPT/HCPCS: 36415; 80048

== ENCOUNTER → 2021-11-10 10:38 | Outpatient (CLI) | payer MEDICARE, SELFPAY ==
--- NOTE | 2021-11-12 10:01 | PFT ---
INTRODUCTION: The patient is a 76-year-old female that presents for pulmonary function studies secondary to a diagnosis of shortness of breath. Respiratory therapy reported good patient effort. Bronchodilators were used during testing. INTERPRETATION: Forced expiration spirometry demonstrates no evidence of a large airways obstructive ventilatory defect. There was no significant response to aerosolized bronchodilators. Spirograms are of good quality and plateau normally. Body plethysmography was performed and reveals lung volumes to be within normal limits. Diffusing capacity by single breath CO was also within normal limits. IMPRESSION: Grossly normal pulmonary function studies.
== END ==
PROVIDERS: PCP Family Medicine; Referring Provider Nurse Practitioner Acute Care; Visit Provider Nurse Practitioner Acute Care
DX: R06.02 Shortness of breath (principal)
CPT/HCPCS: 94060; 94726; 94729

== ENCOUNTER → 2021-11-11 12:27 | Outpatient (CLI) | payer MEDICARE, SELFPAY ==
[2021-11-11 12:54] VITALS: PULSE 60; PULSE 63; PULSE 76; PULSE 78; PULSE 79; PULSE 86; PULSE 87; O2SAT 96; O2SAT 97; O2SAT 98
--- NOTE | 2021-11-11 12:56 | CPS ---
Patient took very brief breaks during the 3rd, 4th and 5th minutes of testing due to dizziness and increase of reported shortness of breath.
--- NOTE | 2021-11-12 10:12 | PCM.PSN.6M ---
PSN 6 Minute Walk Test 6 Minute Walk Test 6 Minute Walk Test: 6 Minute Walk Test PSN:6-Minute Walk Test Start: 11/11/21 12:53 Freq: Status: Active Protocol: RESP.6MINW Document 11/11/21 12:54 SUNSHINE (Rec: 11/11/21 12:58 SUNSHINE [id number]) 6 Minute Walk Test Date Performed 11/11/21 Time Performed 12:30 Height 5 ft Weight: 69.4 kg Weight in Pounds 153.[address]: Iliana Prince [employer] Assistive device used: None Pre-test Oxygen Delivery Method Room Air Pulse Ox (%) 98 Pulse Rate (60-100 beats/min) 63 Dyspnea Jhoana Scale (0-10) 0 Exertion Jhoana Scale (6-20) 6 1st minute Oxygen Delivery Method Room Air Pulse Ox (%) 98 Pulse Rate (60-100 beats/min) 78 2nd minute Oxygen Delivery Method Room Air Pulse Ox (%) 97 Pulse Rate (60-100 beats/min) 86 3rd minute Oxygen Delivery Method Room Air Pulse Ox (%) 96 Pulse Rate (60-100 beats/min) 87 Number of Rests Taken 1 Reported Symptoms Dizziness 4th minute Oxygen Delivery Method Room Air Pulse Ox (%) 97 Pulse Rate (60-100 beats/min) 79 Number of Rests Taken 1 Reported Symptoms Dizziness 5th minute Oxygen Delivery Method Room Air Pulse Ox (%) 98 Pulse Rate (60-100 beats/min) 78 Number of Rests Taken 1 Reported Symptoms Dizziness 6th minute Oxygen Delivery Method Room Air Pulse Ox (%) 98 Pulse Rate (60-100 beats/min) 76 Dyspnea Jhoana Scale (0-10) 5 Exertion Jhoana Scale (6-20) 14 Post-test Oxygen Delivery Method Room Air Pulse Ox (%) 98 Pulse Rate (60-100 beats/min) 60 Full Laps Walked 14 Partial Lap, Number of Tiles Walked 25 Total Distance Walked (ft) 851 11/11/21 12:56 Cardiopulmonary Services by Abigail Mejia Patient took very brief breaks during the 3rd, 4th and 5th minutes of testing due to dizziness and increase of reported shortness of breath. Initialized on 11/11/21 12:56 - END OF NOTE Interpretation Interpretation: The patient ambulated 851 feet over the course of 6 minutes beginning on room air without assistive devices. Pretesting oxygen saturation was noted to be 98% on room air. With ambulation, the alejo oxygen saturation was 96%. There was no significant exertional oxygen desaturation. Recommendations Recommendations: There is no indication for the use of supplemental oxygen at this time.
== END ==
PROVIDERS: PCP Family Medicine; Referring Provider Nurse Practitioner Acute Care; Visit Provider Nurse Practitioner Acute Care
DX: R06.02 Shortness of breath (principal)
CPT/HCPCS: 94618

== ENCOUNTER 2022-01-21 20:00 | Outpatient (CLI) | payer MEDICARE, SELFPAY ==
[2022-01-21] MEDS: Zolpidem Tartrate 5 MG Tablet PO (20:55)
== END 2022-01-21 23:59 | disposition home or self-care (01) ==
LOC: SL 21:11
PROVIDERS: PCP Family Medicine; Visit Provider Internal Medicine Critical Care Medicine
DX: G47.33 Obstructive sleep apnea (adult) (pediatric) (principal)
CPT/HCPCS: 95811

== ENCOUNTER 2022-02-01 09:57 | Outpatient (CLI) | payer MEDICARE, SELFPAY ==
[2022-02-01 11:00] LABS: Hematocrit 34.8 % (37-47); Hemoglobin 11.8 g/dL (12.0-15.0); Mean Corp Hgb Conc 33.9 g/dL (32-36); Mean Corpuscular Hgb 30.3 pg (27.0-32.0); Mean Corpuscular Volume 89.5 fL (81-99); Mean Platelet Vol. 9.8 fl (6.2-12.0); Platelet Count 249 K/mm3 (150-450); RBC Distribution Width CV 12.6 % (11.6-14.6); RBC Distribution Width SD 41.4 fl (35.1-43.9); Red Blood Count 3.89 M/mm3 (4.2-5.4); White Blood Count 7.2 K/mm3 (4.4-11.0)
[2022-02-01 11:39] LABS: Anion Gap 2 (5-15); BUN 13 mg/dL (7-18); BUN/Creat Ratio 14.9 RATIO (10-20); CRP 3.53 mg/L (0.0-3.0); Calcium,Total 8.6 mg/dL (8.5-10.1); Chloride 99 mmol/L (98-107); Creatinine, Serum 0.87 mg/dL (0.55-1.02); EST Glomerular Filtration Rate 67 mL/min (>60); Est Glom Filt Rate - Afr Amer 81 mL/min (>60); Glucose 109 mg/dL (74-106); Potassium 4.8 mmol/L (3.5-5.1); Sodium Level 132 mmol/L (136-145)
== END 2022-02-01 23:59 | disposition home or self-care (01) ==
LOC: LAB 10:00
PROVIDERS: PCP Family Medicine; Visit Provider Family Medicine
DX: R53.83 Other fatigue (principal); M79.10 Myalgia, unspecified site; R51.9 Headache, unspecified; Z86.39 Personal history of other endocrine, nutritional and metabolic disease
CPT/HCPCS: 36415; 80048; 84443; 85027; 86140

== ENCOUNTER 2022-02-15 08:08 | Outpatient (CLI) | payer MEDICARE, SELFPAY ==
[2022-02-15 10:08] LABS: Anion Gap 4 (5-15); BUN 19 mg/dL (7-18); BUN/Creat Ratio 18.6 RATIO (10-20); Calcium,Total 9.2 mg/dL (8.5-10.1); Chloride 107 mmol/L (98-107); Creatinine, Serum 1.02 mg/dL (0.55-1.02); EST Glomerular Filtration Rate 56 mL/min (>60); Est Glom Filt Rate - Afr Amer 68 mL/min (>60); Glucose 97 mg/dL (74-106); Potassium 4.2 mmol/L (3.5-5.1); Sodium Level 140 mmol/L (136-145)
== END 2022-02-15 23:59 | disposition home or self-care (01) ==
LOC: LAB 08:09
PROVIDERS: PCP Family Medicine; Referring Provider Nurse Practitioner Family; Visit Provider Nurse Practitioner Family
DX: E22.2 Syndrome of inappropriate secretion of antidiuretic hormone (principal)
CPT/HCPCS: 36415; 80048

== ENCOUNTER 2022-02-22 11:42 | Outpatient (CLI) | payer MEDICARE, SELFPAY ==
[2022-02-22 12:37] LABS: Color, Urine Yellow (Yellow); Glucose, Dipstick Normal (Normal); Ketone-Dipstick Negative (Negative); Leukocyte Esterase-Dipstick 100 /ul (Negative); Nitrite-Dipstick Positive (Negative); Occult Blood-Urine Negative /ul (Negative); Protein-Dipstick Negative (Negative); Specific Gravity, Urine 1.015 (1.002-1.030); Urine Bilirubin Dipstick Negative (Negative); Urine Clarity Sl. Cloudy (Clear); Urine Urobilinogen Normal (Normal); Urine pH 6.5 (5.0 - 8.0)
== END 2022-02-22 23:59 | disposition home or self-care (01) ==
LOC: LABSPEC 11:43
PROVIDERS: PCP Family Medicine; Visit Provider Family Medicine
DX: R35.0 Frequency of micturition (principal); R30.0 Dysuria
CPT/HCPCS: 81002

== ENCOUNTER 2022-03-02 07:03 | Outpatient (CLI) | payer MEDICARE, SELFPAY ==
[2022-03-02 08:42] LABS: Carbamazepine (Tegretol) 6.6 ug/mL (4.0-12.0)
[2022-03-02 11:43] LABS: Sodium Level 138 mmol/L (136-145)
== END 2022-03-02 23:59 | disposition home or self-care (01) ==
LOC: LAB 07:04
PROVIDERS: Nurse Practitioner Family; PCP Family Medicine; Referring Provider Psychiatry & Neurology Neurology; Visit Provider Psychiatry & Neurology Neurology
DX: G50.0 Trigeminal neuralgia (principal); E87.1 Hypo-osmolality and hyponatremia
CPT/HCPCS: 36415; 80156; 84295

== ENCOUNTER → 2022-04-21 | Outpatient (CLI) | payer MEDICARE, SELFPAY ==
[2022-04-21 09:17] LABS: Sodium Level 136 mmol/L (136-145)
== END | disposition home or self-care (01) ==
LOC: LAB 08:12
PROVIDERS: PCP Family Medicine; Referring Provider Nurse Practitioner Family; Visit Provider Nurse Practitioner Family
DX: E22.2 Syndrome of inappropriate secretion of antidiuretic hormone (principal)
CPT/HCPCS: 36415; 84295

== ENCOUNTER 2022-04-27 12:30 | Outpatient (RCR) | payer MEDICARE, SELFPAY ==
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
--- NOTE | 2022-06-18 07:26 | HP.PT.NRP ---
SHEILA BUCHANAN was seen in my office for initial evaluation on 04/02/22. The following Plan of Care was established for this patient: Initial Frequency: 1-2x /Week Initial Duration: 4-6 Weeks Patient/Client Instruction: Educate patient on: Condition, Plan of Care For the Purpose of:: To increase tolerance to activity/condition/position, To improve ability of physical actions for home/community/work/leisure, To improve gait and locomotor functions Therapeutic Exercise to Include: Balance training For the Purpose of:: To improve muscle performance and motor function, To increase tolerance to activity/condition/position, To improve ability of physical actions for home/community/work/leisure, To improve balance, To improve safety with gait This patient was last seen in our office 04/27/22. Pertinent comments regarding their Physical therapy will appear below: Pt seen 6 visits of POC but did not attend or reschedule her recheck. At this point, it has been over 6 weeks and I will discontinue due to nonattendance. At this point I will be discontinuing this patient from physical therapy. I would be happy to see this patient again in the future if found appropriate by the physician. Thank you! Mario Gallagher, DPT, OCS, CSCS Balance/Gait/Functional tests - Balance/Special Test Scores Functional Gait Assessment Score: 21 % Disability: 30.0000 CATSIB Score (Max score 120 seconds): 91 Dizziness Score: 52
== END 2022-04-27 19:00 | disposition home or self-care (01) ==
LOC: PT 12:30
PROVIDERS: PCP Family Medicine; Referring Provider Nurse Practitioner Family; Visit Provider Nurse Practitioner Family
DX: H81.90 Unspecified disorder of vestibular function, unspecified ear (principal)
CPT/HCPCS: 97140; 97162; 97530

== ENCOUNTER → 2022-05-04 | Outpatient (CLI) | payer MEDICARE, SELFPAY | END | disposition home or self-care (01) | LOC: PSN 11:57 | PROVIDERS: PCP Family Medicine; Visit Provider Physician Assistant Medical | DX: R00.1 Bradycardia, unspecified (principal); R55 Syncope and collapse | CPT/HCPCS: 93225; 93226 ==

== ENCOUNTER → 2022-06-16 | Outpatient (CLI) | payer MEDICARE, SELFPAY ==
[2022-06-16] MEDS: Zolpidem Tartrate 5 MG Tablet PO (22:15)
--- NOTE | 2022-06-16 22:45 | SLEEP ---
Hitesh given at 2214, unable to document med given in JAN at this time.
== END | disposition home or self-care (01) ==
LOC: SL 22:41
PROVIDERS: PCP Family Medicine; Referring Provider Internal Medicine Critical Care Medicine; Visit Provider Internal Medicine Critical Care Medicine
DX: G47.33 Obstructive sleep apnea (adult) (pediatric) (principal)
CPT/HCPCS: 95811

== ENCOUNTER → 2022-07-02 | Outpatient (CLI) | payer MEDICARE, SELFPAY ==
--- NOTE | 2022-07-02 07:02 | ECHOCS_ITS ---
Reason For Study: Arrhythmia Procedure This was a 2D Doppler, Color Flow transthoracic echocardiogram. The study was technically difficult. Contrast injection was performed. Exam performed in department. Left Ventricle Normal LV size. Apical false tendon noted. Left ventricular systolic function is normal. The estimated ejection fraction is 65 %. Diastolic function is indeterminate. No regional wall motion abnormalities noted. Right Ventricle Normal RV size. Normal systolic function. Atria The left atrium is mildly enlarged. Normal right atrium. No doppler evidence for ASD. Mitral Valve There is no mitral annular calcification. Mild mitral valve prolapse, posterior leaflet. Trivial mitral valve insufficiency. Tricuspid Valve Normal tricuspid valve. Trivial tricuspid valve insufficiency. Unable to estimate RV systolic pressure due to insufficient tricuspid regurgitant envelope. Aortic Valve Trisinus/trileaflet aortic valve. Mild diffuse aortic valve thickening. Pulmonic Valve The pulmonic valve is not well visualized. Great Vessels Normal sized aortic root. Pericardium/Pleural No pericardial effusion. Medication 20 gauge I.V. with prn adaptor inserted into left arm. Diluted definity 1ml given slow IV push to enhance endocardial definition. MMode/2D Measurements & Calculations LVIDd: 4.4 cm IVSd: 0.84 cm Ao root diam: 2.7 cm LVIDs: 3.0 cm LVPWd: 0.46 cm LA dimension: 3.3 cm RVDd: 3.3 cm FS: 33.4 % LAV(MOD-bp): 46.4 ml LVAd ap4: 19.4 cm2 LVAd ap2: 23.4 cm2 LAV(MOD-bp) Indexed: 27.5 ml/m2 LVLd ap4: 6.4 cm LVLd ap2: 6.7 cm LAV(MOD-sp2): 49.2 ml EDV(MOD-sp4): 47.9 ml EDV(MOD-sp2): 66.7 ml LAV(MOD-sp4): 43.5 ml EDV(sp4-el): 49.9 ml EDV(sp2-el): 69.3 ml LVAs ap4: 10.4 cm2 LVAs ap2: 13.8 cm2 LVLs ap4: 4.8 cm LVLs ap2: 6.2 cm ESV(MOD-sp4): 19.0 ml ESV(MOD-sp2): 26.5 ml ESV(sp4-el): 19.2 ml ESV(sp2-el): 26.0 ml EF(MOD-sp4): 60.3 % EF(MOD-sp2): 60.2 % EF(sp4-el): 61.5 % SV(MOD-sp4): 28.9 ml SV(MOD-sp2): 40.1 ml SV(sp4-el): 30.6 ml LA A4 area: 16.5 cm2 RA A4 area: 13.1 cm2 Time Measurements MV dec time: 0.18 sec Doppler Measurements & Calculations MV E max frank: 84.4 cm/sec Lat Peak E' Frank: 7.6 cm/sec Med Peak E' Frank: 7.3 cm/sec MV A max frank: 81.7 cm/sec E/E' lat: 11.2 E/E' med: 11.6 MV E/A: 1.0 MV V2 max: 88.6 cm/sec MV P1/2t max frank: 88.0 cm/sec Ao V2 max: 119.3 cm/sec MV max P.1 mmHg MV P1/2t: 55.9 msec Ao max P.7 mmHg MV V2 mean: 59.3 cm/sec Ao V2 mean: 82.9 cm/sec MV mean P.6 mmHg MV dec slope: 460.7 cm/sec2 Ao mean P.1 mmHg MV V2 VTI: 22.5 cm MVA(P1/2t): 3.9 cm2 Ao V2 VTI: 29.5 cm LV V1 max: 92.1 cm/sec PA V2 max: 89.8 cm/sec LV V1 max P.4 mmHg LV V1 mean P.0 mmHg LV V1 mean: 67.4 cm/sec LV V1 VTI: 21.6 cm ECHO/Echo Complete W/ Contrast Interpretation Summary The study was technically difficult. Contrast injection was performed. Left ventricular systolic function is normal. The estimated ejection fraction is 65 %. Apical false tendon noted. The left atrium is mildly enlarged. Mild mitral valve prolapse, posterior leaflet Trivial mitral valve insufficiency. Trivial tricuspid valve insufficiency. Mild diffuse aortic valve thickening. Unable to estimate RV systolic pressure due to insufficient tricuspid regurgita nt envelope. Diastolic function is indeterminate. Ordering Physician: Natalia Smith Referring Physician: Orlando Sanchez Performed By: Harpreet Sharif RCS
--- NOTE | 2022-07-02 08:41 | STRESSREP ---
Stress Test Report Date: 07-02-2022 Procedure: Pharmacologic stress nuclear imaging study Indications: Cardiac dysrhythmias; ventricular tachycardia Consent: Per the patient Procedure: The patient underwent pharmacologic (Regadenoson 0.4mg ) evaluation with a peak heart rate of 106 beats per minute (74%predicted maximal heart rate) and a peak blood pressure of 124/70 mmHg. The baseline ECG demonstrated normal sinus rhythm. The peak pharmacologic ECG demonstrated no obvious ECG changes. There was an occasional PVC and transient ventricular trigeminy during recovery. There was no complaint of chest discomfort during pharmacologic infusion or recovery. The examination was discontinued secondary to completion of protocol. Impression: 1. Pharmacologic (Regadenoson) evaluation 2. Peak pharmacologic ECG with no obvious ECG changes. 3. There was an occasional PVC and transient ventricular trigeminy during recovery. 4. Nuclear images pending Myocardial perfusion imaging study: Technique: The patient was injected with 11.9 millicuries of technetium 99m Cardiolite and subsequently rest SPECT Cardiolite nuclear imaging was obtained in the horizontal long, vertical long, and short axis views. The patient underwent pharmacologic (Regadenoson) evaluation with a peak heart rate of 106 beats per minute (74% percent predicted maximal heart rate) and a peak blood pressure of 124/70 mmHg. The patient was injected with 34.2 millicuries of technetium 99m Cardiolite and subsequently stress SPECT Cardiolite nuclear imaging was obtained in the horizontal long, vertical long, and short axis views. A gated Cardiolite study at peak stress was obtained. Interpretation: Rest and stress SPECT Cardiolite nuclear imaging status post realignment, normalization, and attenuation correction demonstrate a small area of diminished myocardial perfusion/tracer uptake in the mid anterior segments which appears to be somewhat more prominent following stress as opposed to rest. There is end systolic thickening and brightening. The gated Cardiolite study demonstrates myocardial thickening and inward wall motion. The reported LVEF is 79%. Impression: 1. Rest and stress SPECT current nuclear imaging demonstrate a small area of diminished myocardial perfusion/tracer uptake in the mid anterior segments which appears to be somewhat more prominent following stress of the posterior breast potentially compatible with an area of previous myocardial injury/infarction with juan-infarct related myocardial ischemia, however, an element of shifting soft tissue attenuation/artifact cannot necessarily be excluded. 2. The gated Cardiolite study reports an LVEF of 79%. This note was generated with Dragon dictation software. It may contain incorrect words, spelling, and punctuation that were not noted in checking the note before signing.
== END | disposition home or self-care (01) ==
LOC: CVS 07:02
PROVIDERS: PCP Family Medicine; Referring Provider Nurse Practitioner Gerontology; Visit Provider Nurse Practitioner Gerontology
DX: I47.2 Ventricular tachycardia (principal); R94.31 Abnormal electrocardiogram [ECG] [EKG]
CPT/HCPCS: 78452; 93017; 93306; A9500; Q9957; A4216; C8929; J2785

== ENCOUNTER → 2022-07-06 | Outpatient (CLI) | payer MEDICARE, SELFPAY ==
--- NOTE | 2022-07-06 14:22 | RAD_ITS ---
INDICATION: Pre Procedure Testing EXAMINATION/TECHNIQUE: X-RAY - XR Chest 2 Views COMPARISON: None. FINDINGS: LINES/DEVICES: None. LUNGS: Mild bilateral apical scarring. No consolidation, edema or effusion. No pneumothorax. MEDIASTINUM AND CARDIOVASCULAR STRUCTURES: Cardiac silhouette not enlarged. Mild aortic atherosclerosis.. BONES AND SOFT TISSUES: Right upper quadrant surgical clips.. RAD/Chest PA and Lateral IMPRESSION: No radiographic evidence of consolidative pneumonia or florid edema. Mild aortic atherosclerosis. Electronically Signed: Nir Vasquez MD at 6:02 EDT ,
[2022-07-06 15:29] LABS: Hematocrit 36.4 % (37-47); Hemoglobin 12.1 g/dL (12.0-15.0); Mean Corp Hgb Conc 33.2 g/dL (32-36); Mean Corpuscular Hgb 30.6 pg (27.0-32.0); Mean Corpuscular Volume 91.9 fL (81-99); Platelet Count 240 K/mm3 (150-450); RBC Distribution Width CV 12.6 % (11.6-14.6); RBC Distribution Width SD 42.2 fl (35.1-43.9); Red Blood Count 3.96 M/mm3 (4.2-5.4); White Blood Count 6.8 K/mm3 (4.4-11.0)
[2022-07-06 15:38] LABS: International Normalized Ratio 1.1; Prothrombin Time (Protime)PT. 13.4 SECONDS (11.7-14.9)
[2022-07-06 15:39] LABS: Partial Thromboplast Time 27.4 Seconds (24.1-36.2)
[2022-07-06 15:52] LABS: Anion Gap 3 (5-15); BUN 17 mg/dL (7-18); BUN/Creat Ratio 15.9 RATIO (10-20); Calcium,Total 8.7 mg/dL (8.5-10.1); Chloride 104 mmol/L (98-107); Creatinine, Serum 1.07 mg/dL (0.55-1.02); EST Glomerular Filtration Rate 53 mL/min (>60); Est Glom Filt Rate - Afr Amer 64 mL/min (>60); Glucose 107 mg/dL (74-106); Potassium 4.3 mmol/L (3.5-5.1); Sodium Level 139 mmol/L (136-145)
== END | disposition home or self-care (01) ==
LOC: PAT 07-26 09:31
PROVIDERS: PCP Family Medicine; Referring Provider Internal Medicine Cardiovascular Disease; Visit Provider Internal Medicine Cardiovascular Disease
DX: Z01.818 Encounter for other preprocedural examination (principal); I70.0 Atherosclerosis of aorta; I47.2 Ventricular tachycardia; J98.4 Other disorders of lung; R94.39 Abnormal result of other cardiovascular function study
CPT/HCPCS: 36415; 71046; 80048; 85027; 85610; 85730

== ENCOUNTER 2022-07-10 08:59 | Observation (INO) | payer MEDICARE, SELFPAY ==
[2022-07-10] VITALS (16 sets, daily range): BP systolic 125–159; BP diastolic 66–82; PULSE 62–86; RESP 14–20; TEMP 36.6–37; O2SAT 95–100; BMI 30.2; BMI 29.2
--- NOTE | 2022-07-10 09:27 | EDS_ITS ---
HPI <Dr. Mario Mike DO - Last Filed: 07/10/22 10:32> History of Present Illness Informant: patient Onset/Context/Timing Onset: Today and Hours (1-/2) Activity at onset: sudden Timing: Continuous Quality: Positive for Pressure and - (Squeezing) Location: Left Chest Worsened By: Nothing Relieved By: Nothing Associated Symptoms: Positive for Dyspnea and Lightheadedness; Negative for Nausea, Vomiting, Diaphoresis, Cough, Fever, Acid Reflux or Palpitations Narrative Narrative: Patient presents with chest pain that began approximately 1-1/2 hours prior to arrival. Patient states it has been constant. Patient describes it as a pressure and squeezing sensation. Patient states it radiates to her left shoulder and left upper arm. Patient states nothing makes it better nothing makes it worse. Patient admits to some shortness of breath and lightheadedness with the pain. Patient denies any nausea or vomiting. Patient denies any diaphoresis. Patient denies any cough or fever. CVD Risk Factors: Positive for Hypertension; Negative for Diabetes, Hypercholesterolemia, Family History 1' </=55 or Smoking PE Risk Factors: Positive for Cancer; Negative for Recent Travel/Surgery, Recent Immobilization, Prior DVT or PE or OCP + Smoking + >/=35 PFSH <Dr. Mario Mike DO - Last Filed: 07/10/22 10:32> [facility] Medical History Abnormal stress test Anxiety Bradycardia Closed fracture of right distal fibula Essential hypertension GERD (gastroesophageal reflux disease) History of rheumatic fever as a child Hyponatremia Mitral valve prolapse Nonrheumatic mitral (valve) prolapse [place] (obstructive sleep apnea) Pressure ulcer caused by device SIADH (syndrome of inappropriate ADH production) Syncope Trigeminal neuralgia UTI (urinary tract infection) Home Medications cholecalciferol (vitamin D3) 25 mcg (1,000 unit) tablet 2,000 unit PO DAILYCM 12/07/19 [Rx Last Taken Unknown] aspirin 81 mg chewable tablet 81 mg PO DAILY 03/06/20 [History Last Taken Unknown] joyrzvgi-amr-zlvhp acid 0.4 mg-lycopene 300 mcg-lutein 250 mcg tablet (Centrum Silver) 1 tab PO DAILY 11/17/20 [History Last Taken Unknown] amlodipine 2.5 mg tablet See Rx Instructions .Route .COMPLEX #90 tabs 03/01/22 [Rx Last Taken Unknown] acetaminophen 500 mg tablet 500 mg PO Q8 PRN Headache 02/01/22 [History Last Taken Unknown] carbamazepine 100 mg chewable tablet 100 mg PO BID #180 tabs 04/22/22 [Rx Last Taken Unknown] sodium chloride 1 gram tablet 1,000 mg PO DAILY #90 tabs 04/22/22 [Rx Last Taken Unknown] metoprolol succinate 25 mg tablet,extended release 24 hr 25 mg PO DAILY #30 tabs 05/21/22 [Rx Last Taken Unknown] Allergy/AdvReac Type Severity Reaction Status Date / Time codeine Allergy Unknown Verified 07/10/22 09:00 Family History Mother Colon cancer Father Heart disease Myocardial infarction Surgical History H/O tubal ligation History of left heart catheterization (LHC) (~02/25/12) Hx of cholecystectomy S/P ORIF (open reduction internal fixation) fracture Status post right foot surgery Social History housing: apartment pets and animals: No Smoking Status: Never smoker alcohol intake: never substance use type: does not use caffeine: Yes Type: coffee what type of physical activity do you participate in: walking frequency: 1-2 times per week do you feel safe at home: Yes ROS <Dr. Mario Mike DO - Last Filed: 07/10/22 10:32> ROS ED Constitutional Constitutional ED: Denies chills or fever(s) Eyes Eyes: Denies blurry vision or change in vision ENT ENT ED: Denies rhinorrhea or sore throat Cardiovascular Cardiovascular: Reports chest pain; Denies palpitations Respiratory/Chest Respiratory/Chest: Reports dyspnea; Denies cough Gastrointestinal Gastrointestinal: Denies abdominal pain, nausea or vomiting Genitourinary Genitourinary ED: Denies dysuria or hematuria Musculoskeletal Musculoskeletal: Denies back pain or neck pain Integumentary Denies abscess or rash Neurologic Neurologic: Denies headache(s) or weakness Allergic/Immunologic Allergic/Immunologic ED: Denies mouth swelling or urticaria EXAM <Dr. Mario Mike DO - Last Filed: 07/10/22 10:32> Physical Exam Const Vital Signs: 07/10/22 09:01 07/10/22 09:04 07/10/22 09:21 Temperature 98.1 F Temperature Source Oral Pulse Rate 86 Respiratory Rate 20 H Respiratory Effort Normal Blood Pressure 159/75 H Blood Pressure Mean 103 Pulse Ox 98 98 Oxygen Delivery Method Room Air Room Air 07/10/22 09:34 07/10/22 09:52 07/10/22 10:04 Temperature Temperature Source Pulse Rate 74 78 Respiratory Rate Respiratory Effort Blood Pressure 135/74 H 135/75 H Blood Pressure Mean Pulse Ox 98 Oxygen Delivery Method Room Air 07/10/22 10:12 07/10/22 10:14 Temperature Temperature Source Pulse Rate 75 71 Respiratory Rate 16 Respiratory Effort Blood Pressure 127/69 H 126/70 H Blood Pressure Mean 88 Pulse Ox 98 Oxygen Delivery Method Room Air Positive well nourished and well developed General Appearance ED: well developed HEENT normocephalic and atraumatic Eyes PERRL and EOMs intact bilaterally Neck supple and no JVD Chest Wall palpation of chest normal Resp normal respiratory effort and clear to auscultation bilaterally Effort and Inspection: Negative for respiratory distress Cardio regular rate, regular rhythm and no murmurs GI normal to inspection, nondistended, normoactive bowel sounds, soft to palpation, non-tender and non-distended Extremity normal to inspection General Extremety ED: Negative for edema or tenderness General Extremity: Negative for edema Neuro oriented x3, CN's II-XII intact bilaterally and no sensory deficits noted Sensorium / Orientation: awake and alert Motor Exam: strength 5/5 throughout Psych mental status grossly normal <Dr. Lenore Lei MD - Last Filed: 07/10/22 10:28> Physical Exam Const Vital Signs: 07/10/22 09:01 07/10/22 09:04 07/10/22 09:21 Temperature 98.1 F Temperature Source Oral Pulse Rate 86 Respiratory Rate 20 H Respiratory Effort Normal Blood Pressure 159/75 H Blood Pressure Mean 103 Pulse Ox 98 98 Oxygen Delivery Method Room Air Room Air 07/10/22 09:34 07/10/22 09:52 07/10/22 10:04 Temperature Temperature Source Pulse Rate 74 78 Respiratory Rate Respiratory Effort Blood Pressure 135/74 H 135/75 H Blood Pressure Mean Pulse Ox 98 Oxygen Delivery Method Room Air 07/10/22 10:12 07/10/22 10:14 Temperature Temperature Source Pulse Rate 75 71 Respiratory Rate 16 Respiratory Effort Blood Pressure 127/69 H 126/70 H Blood Pressure Mean 88 Pulse Ox 98 Oxygen Delivery Method Room Air <Dr. Mario Mike, DO - Last Filed: 07/10/22 10:32> Heart Score History: Moderately Suspicious ECG: Normal Age: >/= 65 years Risk Factors: 1 or 2 Risk Factors Troponin: </= Normal Limit Score: 4 <Dr. Lenore Lei MD - Last Filed: 07/10/22 10:28> Heart Score Score: 4 MDM <Dr. Mario Mike, DO - Last Filed: 07/10/22 10:32> MDM MDM Narrative Medical decision making narrative: Patient was given aspirin and sublingual nitroglycerin here. EKG was obtained. On my interpretation, it showed a normal sinus rhythm with a rate of 78. MT interval, QRS interval, and QTc intervals were all normal. [place] was normal. There are no acute ST or T wave changes. Portable 1 view chest x-ray was ob tained. On my interpretation, lung are clear. There is normal cardiac silhouette. Bony thorax is normal. There is no acute process noted. Radiologist also interpreted the x-ray and agrees. CBC was within normal limits. Basic metabolic profile showed a slightly elevated glucose of 141. Initial high-sensitivity troponin was 5. Patient had some improvement of her chest pain with nitroglycerin. Patient was placed on nitroglycerin paste. Upon review of the patient's records, the patient had a recent abnormal stress test. Patient is currently scheduled to have a heart catheterization done this coming Tuesday. Due to this, I recommended admission to the hospital. Case was discussed with the hospitalist. She will admit the patient to her service. Patient understood and was agreeable with the plan. All questions were answered. Lab Data Attestation: I reviewed the patient's lab results. Labs: Laboratory Results - last 24 hr 07/10/22 07/10/22 09:25 09:25 WBC 6.3 RBC 4.02 L Hgb 12.3 Hct 37.2 MCV 92.5 MCH 30.6 MCHC 33.1 RDW Std Deviation 42.7 RDW Coeff of Tamela 12.5 Plt Count 224 MPV 9.6 Immature Gran % (Auto) 0.200 Neut % (Auto) 64.9 Lymph % (Auto) 22.2 [place] % (Auto) 9.9 Eos % (Auto) 2.2 Baso % (Auto) 0.6 Absolute Neuts (auto) 4.1 Absolute Lymphs (auto) 1.39 Nucleated RBC % 0 Sodium 140 Potassium 4.1 Chloride 107 Carbon Dioxide 28.0 Anion Gap 5 BUN 18 Creatinine 0.98 Estim Creat Clear Calc 34.53 Est GFR (MDRD) Af Amer 71 Est GFR (MDRD) Non-Af 59 L BUN/Creatinine Ratio 18.4 Glucose 141 H Calcium 8.9 Troponin I High Sens 5 Radiography Chest X-Ray - ED: 1 View, Read by ED Physician, Read by Radiologist and No Acute Disease EKG Initial EKG: Attestation: I personally reviewed and interpreted this EKG as follows: Interpretation: Sinus Rhythm (78) and No Acute Injury Pattern Prior EKG tracings: available for review Prior: Unchanged (05/05/2021) <Dr. Lenore Lei MD - Last Filed: 07/10/22 10:28> [facility] Lab Data Labs: Laboratory Results - last 24 hr 07/10/22 07/10/22 09:25 09:25 WBC 6.3 RBC 4.02 L Hgb 12.3 Hct 37.2 MCV 92.5 MCH 30.6 MCHC 33.1 RDW Std Deviation 42.7 RDW Coeff of Tamela 12.5 Plt Count 224 MPV 9.6 Immature Gran % (Auto) 0.200 Neut % (Auto) 64.9 Lymph % (Auto) 22.2 [place] % (Auto) 9.9 Eos % (Auto) 2.2 Baso % (Auto) 0.6 Absolute Neuts (auto) 4.1 Absolute Lymphs (auto) 1.39 Nucleated RBC % 0 Sodium 140 Potassium 4.1 Chloride 107 Carbon Dioxide 28.0 Anion Gap 5 BUN 18 Creatinine 0.98 Estim Creat Clear Calc 34.53 Est GFR (MDRD) Af Amer 71 Est GFR (MDRD) Non-Af 59 L BUN/Creatinine Ratio 18.4 Glucose 141 H Calcium 8.9 Troponin I High Sens 5 Discharge Plan Triage Chief Complaint: Chest Pain ED Provider: Mario Mike Dx/Rx/DC Orders Clinical Impression: Chest pain, Essential hypertension, Abnormal stress test Prescriptions: No Action aspirin 81 mg tablet,chewable 81 mg PO DAILY acetaminophen 500 mg tablet 500 mg PO Q8 PRN (Reason: Headache) Centrum Silver 0.4-300-250 mg-mcg-mcg tablet 1 tab PO DAILY sodium chloride 1 gram tablet 1,000 mg PO DAILY Qty: 90 0RF carbamazepine 100 mg tablet,chewable 100 mg PO BID Qty: 180 1RF cholecalciferol (vitamin D3) 1,000 UNIT tablet 2,000 unit PO DAILYCM 0RF amlodipine 2.5 mg tablet See Rx Instructions .ROUTE .COMPLEX Qty: 90 3RF Dose Instruction: TAKE 1 TABLET BY MOUTH EVERY DAY Rx Instructions: TAKE 1 TABLET BY MOUTH EVERY DAY metoprolol succinate 25 mg tablet extended release 24 hr 25 mg PO DAILY Qty: 30 11RF Primary Care Provider: Orlando Sanchez Referrals: Orlando Sanchez DO [Primary Care Provider] - Disposition Disposition: Acute Care Hospital [facility]
--- NOTE | 2022-07-10 09:32 | EKG12_ITS ---
Test Reason : CHEST PAIN Blood Pressure : / mmHG Vent. Rate : 078 BPM Atrial Rate : 078 BPM P-R Int : 204 ms QRS Dur : 074 ms QT Int : 368 ms P-R-T Axes : 068 -24 074 degrees QTc Int : 419 ms Normal sinus rhythm Normal ECG Confirmed by RAISA POTTER, STEFANY ([id number]), order editor RYDER MARCELO ([id number]) on 07/13/2022 7:49:49 AM Referred By: LOUIE Confirmed By:STEFANY KLINE MD
[2022-07-10] MEDS: Aspirin 81 MG TAB.CHEW 324 MG PO (09:40)
[2022-07-10 09:41] LABS: Absolute Lymphocyte Count 1.39 X10^3/uL (0.83-4.51); Absolute Neutrophil Count 4.1 X10^3/uL (2.0-7.7); Basophil# 0.04 X10^3/uL; Basophil% 0.6 % (0-1); Eosinophil# 0.14 X10^3/uL; Eosinophils% 2.2 % (0-5); Hematocrit 37.2 % (37-47); Hemoglobin 12.3 g/dL (12.0-15.0); Lymphocyte # 1.39 X10^3/ul (0.83-4.51); Lymphocyte % 22.2 % (19-41); Mean Corp Hgb Conc 33.1 g/dL (32-36); Mean Corpuscular Hgb 30.6 pg (27.0-32.0); Mean Corpuscular Volume 92.5 fL (81-99); Mean Platelet Vol. 9.6 fl (6.2-12.0); Monocyte# 0.62 X10^3/uL; Monocyte% 9.9 % (0-10); NRBC Flagged by Analyzer 0 % (0-5); Neutrophil # 4.07 X10^3/uL (2.7-7.7); Neutrophil % 64.9 % (47-70); Platelet Count 224 K/mm3 (150-450); RBC Distribution Width CV 12.5 % (11.6-14.6); RBC Distribution Width SD 42.7 fl (35.1-43.9); Red Blood Count 4.02 M/mm3 (4.2-5.4); White Blood Count 6.3 K/mm3 (4.4-11.0)
[2022-07-10] MEDS: Nitroglycerin SL (ED/IMG/CATH) 0.4 MG TABLET SL ×3 (09:52→10:14)
--- NOTE | 2022-07-10 10:04 | RAD_ITS ---
STUDY: X-RAY CHEST REASON FOR EXAM: Female, 77 years old. Chest pain TECHNIQUE: Chest PA or AP COMPARISON: 07/06/2022 FINDINGS: The lungs are clear and expanded. There is no demonstrated pleural abnormality. Normal size heart. Normal mediastinum and jose. Normal visualized pulmonary arteries. Mild atherosclerotic vascular calcification of the aortic arch. Mildly tortuous descending aorta. Normal visualized thoracic spine. Normal visualized ribs, clavicles, and shoulders. There is no demonstrated abnormality of the visualized soft tissue structures of the upper abdomen. RAD/Chest 1 View (Portable) IMPRESSION: Stable findings. Mild atherosclerotic vascular calcification of aortic arch. Mildly tortuous descending aorta. Electronically Signed: Mauricio De Anda MD, MIGUEL A at 10:34 EDT ,
[2022-07-10 10:11] LABS: Anion Gap 5 (5-15); BUN 18 mg/dL (7-18); BUN/Creat Ratio 18.4 RATIO (10-20); Calcium,Total 8.9 mg/dL (8.5-10.1); Chloride 107 mmol/L (98-107); Creatinine, Serum 0.98 mg/dL (0.55-1.02); EST Glomerular Filtration Rate 59 mL/min (>60); Est Glom Filt Rate - Afr Amer 71 mL/min (>60); Estimated Creatinine Clearance 34.53 ml/min; Glucose 141 mg/dL (74-106); Potassium 4.1 mmol/L (3.5-5.1); Sodium Level 140 mmol/L (136-145); Troponin-I HS (w/2H Reflex) 5 pg/mL (3.0-54.0)
--- NOTE | 2022-07-10 10:29 | HP.PCM.HOS_ITS ---
HPI - General General Date of Admission: 07/10/22 Date of Service: 07/10/22 Chief Complaint: chest pain HPI Narrative SHEILA BUCHANAN, is a 77 F with a PMH as outlined who presents via the ED on 07/10/2022 with a complaint of chest pain which started ~ 1-1/5 hours prior to admission; chest pain was left sided, radiated to her left shoulder. She said pain had no aggravating or relieving factors. She denied any lightheadedness, dizziness, shortness of breath or any other symptoms. REview of systems is otherwise negative. She recently had an abnormal stress test on outpatient basis and had been scheduled for cardiac cath next Tuesday. Vitals were temp of 98.2F, OH of 71, BP of 127/70 and RR of 16. She was saturating at 98% on room air. CBC was unremarkable, and BMP was also unremarkable. Initial high sensitivity troponin was 5. EKG showed no acute ST changes and CXR showed no acute cardiopulmonary process. She is being admitted to be managed for chest pain to rule out ACS. [facility] Medical History Abnormal stress test Anxiety Bradycardia Closed fracture of right distal fibula Essential hypertension GERD (gastroesophageal reflux disease) History of rheumatic fever as a child Hyponatremia Mitral valve prolapse Nonrheumatic mitral (valve) prolapse [place] (obstructive sleep apnea) Pressure ulcer caused by device SIADH (syndrome of inappropriate ADH production) Syncope Trigeminal neuralgia UTI (urinary tract infection) Home Medications cholecalciferol (vitamin D3) 25 mcg (1,000 unit) tablet 2,000 unit PO DAILYCM 12/07/19 [Rx Last Taken Unknown] aspirin 81 mg chewable tablet 81 mg PO DAILY 03/06/20 [History Last Taken Unknown] fqpirkig-zpl-uwiwz acid 0.4 mg-lycopene 300 mcg-lutein 250 mcg tablet (Centrum Silver) 1 tab PO DAILY 11/17/20 [History Last Taken Unknown] amlodipine 2.5 mg tablet See Rx Instructions .Route .COMPLEX #90 tabs 01/12/22 [Rx Last Taken 07/09/22] acetaminophen 500 mg tablet 500 mg PO Q8 PRN Headache 02/01/22 [History Last Taken 07/09/22] carbamazepine 100 mg chewable tablet 100 mg PO BID #180 tabs 04/22/22 [Rx Last Taken 07/10/22] sodium chloride 1 gram tablet 1,000 mg PO DAILY #90 tabs 04/22/22 [Rx Last Taken 07/10/22 12:28] metoprolol succinate 25 mg tablet,extended release 24 hr 25 mg PO DAILY #30 tabs 05/21/22 [Rx Last Taken 07/10/22] Allergy/AdvReac Type Severity Reaction Status Date / Time codeine Allergy Unknown Verified 07/10/22 09:00 Family History Mother Colon cancer Father Heart disease Myocardial infarction Surgical History H/O tubal ligation History of left heart catheterization (LHC) (~02/25/12) Hx of cholecystectomy S/P ORIF (open reduction internal fixation) fracture Status post right foot surgery Social History housing: apartment pets and animals: No Smoking Status: Never smoker alcohol intake: never substance use type: does not use caffeine: Yes Type: coffee what type of physical activity do you participate in: walking frequency: 1-2 times per week do you feel safe at home: Yes ROS Constitutional Constitutional: Denies anorexia, chills, fatigue, fever(s), malaise or weakness Eyes Eyes: Denies change in vision ENT HEENT: Denies dysphagia or headache(s) Cardiovascular Cardiovascular: Reports chest pain; Denies dyspnea on exertion, edema, lightheadedness, orthopnea, palpitations, paroxysmal nocturnal dyspnea, rapid heart rate or syncope Respiratory/Chest Respiratory/Chest: Denies cough, dyspnea, productive cough, shortness of breath at rest or shortness of breath with exertion Gastrointestinal Gastrointestinal: Denies abdominal pain, nausea or vomiting Genitourinary Genitourinary: Denies dysuria Musculoskeletal Musculoskeletal: Denies arthralgias, back pain or joint pain Neurologic Neurologic: Denies confusion, dizziness, focal weakness or seizures Psychiatric Psychiatric: Denies anxiety Hematologic/Lymphatic Hematologic/Lymphatic: Denies anemia Vital Signs Vital Signs Vital Signs: 07/10/22 09:01 07/10/22 09:04 07/10/22 09:21 Temperature 98.1 F Temperature Source Oral Pulse Rate 86 Respiratory Rate 20 H Respiratory Effort Normal Blood Pressure 159/75 H Blood Pressure Mean 103 Pulse Ox 98 98 Oxygen Delivery Method Room Air Room Air 07/10/22 09:34 07/10/22 09:52 07/10/22 10:04 Temperature Temperature Source Pulse Rate 74 78 Respiratory Rate Respiratory Effort Blood Pressure 135/74 H 135/75 H Blood Pressure Mean Pulse Ox 98 Oxygen Delivery Method Room Air 07/10/22 10:12 07/10/22 10:14 Temperature Temperature Source Pulse Rate 75 71 Respiratory Rate 16 Respiratory Effort Blood Pressure 127/69 H 126/70 H Blood Pressure Mean 88 Pulse Ox 98 Oxygen Delivery Method Room Air Weight Weight: 154 lb 15.759 oz Body Mass Index (BMI) 30.2 Physical Exam Const alert, oriented x3 and no apparent distress General Appearance: cooperative HEENT normocephalic, head/scalp atraumatic, hearing grossly normal bilaterally and moist oral mucous membranes Mouth: oral and palatal mucosa normal Eyes PERRL, EOMs intact bilaterally and conjunctivae normal Neck no lymphadenopathy, supple and no JVD Resp normal respiratory effort, no retractions, no use of accessory muscles and clear to auscultation bilaterally Cardio regular rate, regular rhythm, S1 normal heart sound, S2 normal heart sound and no murmurs GI normal to inspection, nondistended, normoactive bowel sounds, soft to palpation, non-tender and non-distended Extremity normal to inspection, full ROM and no clubbing, cyanosis or edema Neuro oriented x3, CN's II-XII intact bilaterally, moves all extremities and no focal motor deficits Sensorium / Orientation: awake and alert Motor Exam: strength 5/5 throughout Psych affect normal Results Lab / Micro Data Result Diagrams: 07/11/22 04:30 07/11/22 04:30 Labs: Laboratory Results - last 24 hr 07/10/22 09:25: WBC 6.3, RBC 4.02 L, Hgb 12.3, Hct 37.2, MCV 92.5, MCH 30.6, MCHC 33.1, RDW Std Deviation 42.7, RDW Coeff of Tamela 12.5, Plt Count 224, MPV 9.6, Immature Gran % (Auto) 0.200, Neut % (Auto) 64.9, Lymph % (Auto) 22.2, [place] % (Auto) 9.9, Eos % (Auto) 2.2, Baso % (Auto) 0.6, Absolute Neuts (auto) 4.1, Absolute Lymphs (auto) 1.39, Nucleated RBC % 0 07/10/22 09:25: Sodium 140, Potassium 4.1, Chloride 107, Carbon Dioxide 28.0, Anion Gap 5, BUN 18, Creatinine 0.98, Estim Creat Clear Calc 34.53, Est GFR (MDRD) Af Amer 71, Est GFR (MDRD) Non-Af 59 L, BUN/Creatinine Ratio 18.4, Glucose 141 H, Calcium 8.9, Troponin I High Sens 5 Assessment & Plan Assessment/Plan (1) Chest pain: PLAN: Plan #CHest pain * initial troponin is negative, and EKG showed no acute ST changes * she recently had an abnormal stress test, and was scheduled for outpatient cardiac cath on Tuesday * cycle troponins * consult cardiology for outpatient cardiac cath * 2D echo (07/02/2022) showed EF of 65% with normal LV size and systolic function, and no regional wall motion abnormalities noted. Unable to estimate RV systolic pressure due to insufficient tricuspid regurgitant envelope * on aspirin * #History of ventricular tachycardia * on metoprolol * #Hypertension: on metoprolol and amlodipine #SIADH: on sodium chloride tablet once daily #[place]: on CPAP qhs DVT prophylaxis: lovenox COde status: full code * Patient counseled extensively about different types of CODE STATUS including full code, DNR CCA and DNR CCA. Patient elects to be full code. * Total [id number] time 17 minutes. Charges/Coding Visit Charges OBSV E&M: 31169 Initial observation care L2 Procedures Hospitalists Procedures: 14631 Advncd Care Plan 30 Min
[2022-07-10] MEDS: Nitroglycerin Oint 1 INCH PACKET TD (10:38)
[2022-07-10 11:38] LABS: Reflex Troponin-HS? (from REC) Y
[2022-07-10 12:40] LABS: Troponin-I HS 6 pg/mL (3.0-54.0)
[2022-07-10] MEDS: Acetaminophen 500 MG Tablet PO (14:26)
--- NOTE | 2022-07-10 14:37 | EKG12_ITS ---
Test Reason : AM EKG Blood Pressure : / mmHG Vent. Rate : 068 BPM Atrial Rate : 068 BPM P-R Int : 226 ms QRS Dur : 074 ms QT Int : 396 ms P-R-T Axes : 059 -24 071 degrees QTc Int : 421 ms Sinus rhythm with 1st degree A-V block Leftward axis Confirmed by RAISA POTTER, STEFANY ([id number]), photography editor RYDER MARCELO ([id number]) on 07/13/2022 7:56:49 AM Referred By: Confirmed By:STEFANY KLINE MD
[2022-07-10 15:11] LABS: Troponin-I HS 5 pg/mL (3.0-54.0)
--- NOTE | 2022-07-10 17:07 | CON.PCM.CA_ITS ---
Assessment & Plan Assessment/Plan (1) Chest pain: PLAN: Not clear if this is of cardiac origin. However patient did have an abnormal stress test and was already scheduled for a heart cath. Continue current medications. Coronary angiography on Tuesday. (2) Abnormal stress test: HPI Consult Data Date of Consult: 07/10/22 HPI Narrative Reason for Consultation: Chest pain HPI Narrative: SHEILA BUCHANAN, is a 77 F who presents with chest tightness. Patient had a r ecent stress test that was abnormal and was scheduled for heart cath on Tuesday. Chest tightness does not have any specific aggravating or relieving factors. She had a heart cath about 8 years back which did not show any significant CAD according to the patient. Review of systems: All systems reviewed. All else is negative except that in HPI [facility] Medical History Abnormal stress test Anxiety Bradycardia Closed fracture of right distal fibula Essential hypertension GERD (gastroesophageal reflux disease) History of rheumatic fever as a child Hyponatremia Mitral valve prolapse Nonrheumatic mitral (valve) prolapse [place] (obstructive sleep apnea) Pressure ulcer caused by device SIADH (syndrome of inappropriate ADH production) Syncope Trigeminal neuralgia UTI (urinary tract infection) Home Medications cholecalciferol (vitamin D3) 25 mcg (1,000 unit) tablet 2,000 unit PO DAILYCM 12/07/19 [Rx Last Taken Unknown] aspirin 81 mg chewable tablet 81 mg PO DAILY 03/06/20 [History Last Taken Unknown] wzafznxx-syi-shlup acid 0.4 mg-lycopene 300 mcg-lutein 250 mcg tablet (Centrum Silver) 1 tab PO DAILY 11/17/20 [History Last Taken Unknown] amlodipine 2.5 mg tablet See Rx Instructions .Route .COMPLEX #90 tabs 01/12/22 [Rx Last Taken 07/09/22] acetaminophen 500 mg tablet 500 mg PO Q8 PRN Headache 02/01/22 [History Last Taken 07/09/22] carbamazepine 100 mg chewable tablet 100 mg PO BID #180 tabs 04/22/22 [Rx Last Taken 07/10/22] sodium chloride 1 gram tablet 1,000 mg PO DAILY #90 tabs 04/22/22 [Rx Last Taken 07/10/22 12:28] metoprolol succinate 25 mg tablet,extended release 24 hr 25 mg PO DAILY #30 tabs 05/21/22 [Rx Last Taken 07/10/22] Allergy/AdvReac Type Severity Reaction Status Date / Time codeine Allergy Unknown Verified 07/10/22 09:00 Family History Mother Colon cancer Father Heart disease Myocardial infarction Surgical History H/O tubal ligation History of left heart catheterization (LHC) (~02/25/12) Hx of cholecystectomy S/P ORIF (open reduction internal fixation) fracture Status post right foot surgery Social History housing: apartment pets and animals: No Smoking Status: Never smoker alcohol intake: never substance use type: does not use caffeine: Yes Type: coffee what type of physical activity do you participate in: walking frequency: 1-2 times per week do you feel safe at home: Yes Physical Exam Const alert and oriented x3 Eyes no scleral icterus Cardio regular rate and regular rhythm Psych mental status grossly normal Risk Stratification Risk Stratification Applicable: No Charges/Coding Visit Charges Inpatient E&M: 72282 Init Hosp L2 Objective Data Vital Signs: Vital Signs Temp Pulse Resp BP Pulse Ox O2 Del Method 97.9 F 62 16 127/74 H 95 Room Air 07/10/22 15:10 07/10/22 15:10 07/10/22 15:10 07/10/22 15:10 07/10/22 15:10 07/10/22 15:10 Oxygen Delivery Method Room Air Weight: 150 lb 1 oz Body Mass Index (BMI) 29.2 Lab / Micro Data Result Diagrams: 07/10/22 09:25 07/10/22 09:25 Labs: Laboratory Results - last 24 hr 07/10/22 09:25: WBC 6.3, RBC 4.02 L, Hgb 12.3, Hct 37.2, MCV 92.5, MCH 30.6, MCHC 33.1, RDW Std Deviation 42.7, RDW Coeff of Tamela 12.5, Plt Count 224, MPV 9.6, Immature Gran % (Auto) 0.200, Neut % (Auto) 64.9, Lymph % (Auto) 22.2, [place] % (Auto) 9.9, Eos % (Auto) 2.2, Baso % (Auto) 0.6, Absolute Neuts (auto) 4.1, Absolute Lymphs (auto) 1.39, Nucleated RBC % 0 07/10/22 09:25: Sodium 140, Potassium 4.1, Chloride 107, Carbon Dioxide 28.0, Anion Gap 5, BUN 18, Creatinine 0.98, Estim Creat Clear Calc 34.53, Est GFR (MDRD) Af Amer 71, Est GFR (MDRD) Non-Af 59 L, BUN/Creatinine Ratio 18.4, Glucose 141 H, Calcium 8.9, Troponin I High Sens 5 07/10/22 12:08: Troponin I High Sens 6 07/10/22 14:42: Troponin I High Sens 5 Cardiology Labs/Tests 07/10/22 09:25: WBC 6.3, RBC 4.02 L, Hgb 12.3, Hct 37.2, MCV 92.5, MCH 30.6, MCHC 33.1, Plt Count 224, MPV 9.6, Immature Gran % (Auto) 0.200, Neut % (Auto) 64.9, Lymph % (Auto) 22.2, [place] % (Auto) 9.9, Eos % (Auto) 2.2, Baso % (Auto) 0.6, Absolute Neuts (auto) 4.1, Nucleated RBC % 0 07/10/22 09:25: Sodium 140, Potassium 4.1, Chloride 107, Carbon Dioxide 28.0, Anion Gap 5, BUN 18, Creatinine 0.98, Est GFR (MDRD) Af Amer 71, Est GFR (MDRD) Non-Af 59 L, BUN/Creatinine Ratio 18.4, Glucose 141 H, Calcium 8.9 Rhythm: EKG: ECHO: Stress Test: Cardiac Cath: PCI: CT Surgery: Holter monitor: EPS: PPM: CXR: Chest CT Scan: Radiography Diagnostic Testing: Radiology Impression Chest X-Ray 07/10/22 10:04 IMPRESSION: Stable findings. Mild atherosclerotic vascular calcification of aortic arch. Mildly tortuous descending aorta. Electronically Signed: Mauricio De Anda MD, MIGUEL A at 10:34 EDT ,
[2022-07-10] MEDS: CARBAMAZEPINE 100 MG TAB.CHEW PO (20:58)
[2022-07-10] MEDS: amLODIPine 2.5 MG Tablet PO (20:58)
[2022-07-11] VITALS (9 sets, daily range): BP systolic 119–141; BP diastolic 51–66; PULSE 62–75; RESP 16–20; TEMP 36.6–37; O2SAT 95–99
[2022-07-11 04:53] LABS: Absolute Lymphocyte Count 1.59 X10^3/uL (0.83-4.51); Absolute Neutrophil Count 3.1 X10^3/uL (2.0-7.7); Basophil# 0.04 X10^3/uL; Basophil% 0.7 % (0-1); Eosinophil# 0.22 X10^3/uL; Hematocrit 33.7 % (37-47); Hemoglobin 11.2 g/dL (12.0-15.0); Lymphocyte # 1.59 X10^3/ul (0.83-4.51); Lymphocyte % 28.7 % (19-41); Mean Corp Hgb Conc 33.2 g/dL (32-36); Mean Corpuscular Hgb 30.4 pg (27.0-32.0); Mean Corpuscular Volume 91.3 fL (81-99); Mean Platelet Vol. 9.8 fl (6.2-12.0); Monocyte# 0.61 X10^3/uL; NRBC Flagged by Analyzer 0 % (0-5); Neutrophil # 3.07 X10^3/uL (2.7-7.7); Neutrophil % 55.4 % (47-70); Platelet Count 199 K/mm3 (150-450); RBC Distribution Width CV 12.3 % (11.6-14.6); RBC Distribution Width SD 41.3 fl (35.1-43.9); Red Blood Count 3.69 M/mm3 (4.2-5.4); White Blood Count 5.5 K/mm3 (4.4-11.0)
[2022-07-11 05:23] LABS: Anion Gap 6 (5-15); BUN 19 mg/dL (7-18); BUN/Creat Ratio 21.9 RATIO (10-20); Calcium,Total 8.1 mg/dL (8.5-10.1); Chloride 104 mmol/L (98-107); Creatinine, Serum 0.87 mg/dL (0.55-1.02); EST Glomerular Filtration Rate 67 mL/min (>60); Est Glom Filt Rate - Afr Amer 81 mL/min (>60); Glucose 94 mg/dL (74-106); Potassium 4.1 mmol/L (3.5-5.1); Sodium Level 137 mmol/L (136-145)
[2022-07-11] MEDS: CARBAMAZEPINE 100 MG TAB.CHEW PO ×2 (09:06→21:57)
[2022-07-11] MEDS: Enoxaparin 40 MG/0.4 ML Syringe SC (09:06)
[2022-07-11] MEDS: Multivitamins,Ther W-Minerals Tablet 1 TABLET PO (09:06)
[2022-07-11] MEDS: Cholecalciferol (VIT D3) 25 MCG TABLET (1,000 UNITS) 50 MCG PO (09:06)
[2022-07-11] MEDS: Aspirin 81 MG TAB.CHEW PO (09:06)
[2022-07-11] MEDS: Sodium Chloride 1 GM Tablet PO (09:07)
[2022-07-11] MEDS: Metoprolol(XL)Succ 25 MG Tablet PO (09:07)
--- NOTE | 2022-07-11 11:07 | PN.HOSP_ITS ---
Subjective Subjective Patient seen and examined. She has no complaints this morning. Chest pain didnt recur. Review of systems otherwise negative. Objective Data Objective Data Vital Signs: Vital Signs Temp Pulse Resp BP Pulse Ox O2 Del Method 98.2 F 75 16 119/51 L 95 Room Air 07/11/22 09:01 07/11/22 09:07 07/11/22 09:01 07/11/22 09:07 07/11/22 09:01 07/11/22 09:01 Oxygen Delivery Method Room Air Weight: 150 lb 1 oz Body Mass Index (BMI) 29.2 Intake & Output: Intake and Output for Last 24 Hours 07/09/22 07/10/22 07/11/22 23:59 23:59 23:59 Intake Total 350 / 350 50 / 50 Balance 350 / 350 50 / 50 Lab / Micro Data Result Diagrams: 07/11/22 04:30 07/11/22 04:30 Labs: Laboratory Results - last 24 hr 07/10/22 12:08: Troponin I High Sens 6 07/10/22 14:42: Troponin I High Sens 5 07/11/22 04:30: WBC 5.5, RBC 3.69 L, Hgb 11.2 L, Hct 33.7 L, MCV 91.3, MCH 30.4, MCHC 33.2, RDW Std Deviation 41.3, RDW Coeff of Tamela 12.3, Plt Count 199, MPV 9.8, Immature Gran % (Auto) 0.200, Neut % (Auto) 55.4, Lymph % (Auto) 28.7, [place] % (Auto) 11.0 H, Eos % (Auto) 4.0, Baso % (Auto) 0.7, Absolute Neuts (auto) 3.1, Absolute Lymphs (auto) 1.59, Nucleated RBC % 0 07/11/22 04:30: Sodium 137, Potassium 4.1, Chloride 104, Carbon Dioxide 27.0, Anion Gap 6, BUN 19 H, Creatinine 0.87, Estim Creat Clear Calc 38.90, Est GFR (MDRD) Af Amer 81, Est GFR (MDRD) Non-Af 67, BUN/Creatinine Ratio 21.9 H, Glucose 94, Calcium 8.1 L Physical Exam Const alert, oriented x3 and no apparent distress General Appearance: cooperative HEENT normocephalic, head/scalp atraumatic, hearing grossly normal bilaterally and moist oral mucous membranes Head and Scalp: normocephalic Mouth: oral and palatal mucosa normal Eyes PERRL, EOMs intact bilaterally and conjunctivae normal Neck no lymphadenopathy, supple and no JVD Resp normal respiratory effort, no retractions, no use of accessory muscles and clear to auscultation bilaterally Cardio regular rate, regular rhythm, S1 normal heart sound, S2 normal heart sound and no murmurs GI normal to inspection, nondistended, normoactive bowel sounds, soft to palpation, non-tender and non-distended Extremity normal to inspection, full ROM and no clubbing, cyanosis or edema Neuro oriented x3, CN's II-XII intact bilaterally, moves all extremities and no focal motor deficits Sensorium / Orientation: awake and alert Motor Exam: strength 5/5 throughout Psych affect normal Assessment & Plan Assessment/Plan (1) Chest pain: PLAN: Plan #CHest pain * initial troponin is negative, and EKG showed no acute ST changes * she recently had an abnormal stress test, and was scheduled for outpatient cardiac cath on Tuesday * troponins were negative * 2D echo (07/02/2022) showed EF of 65% with normal LV size and systolic function, and no regional wall motion abnormalities noted. Unable to estimate RV systolic pressure due to insufficient tricuspid regurgitant envelope * on aspirin * cardiology on board. For cardiac cath tomorrow * #History of ventricular tachycardia * on metoprolol * #Hypertension: on metoprolol and amlodipine #SIADH: on sodium chloride tablet once daily #[place]: on CPAP qhs DVT prophylaxis: lovenox Charges/Coding Visit Charges Inpatient E&M: 99068 Subs Hosp L2
[2022-07-11] MEDS: Acetaminophen 500 MG Tablet PO (12:46)
[2022-07-11] MEDS: amLODIPine 2.5 MG Tablet PO (21:57)
[2022-07-12] VITALS (13 sets, daily range): BP systolic 108–135; BP diastolic 53–69; PULSE 62–82; RESP 15–18; TEMP 36.7–37.2; O2SAT 15–98
--- NOTE | 2022-07-12 05:00 | EKG12_ITS ---
Test Reason : CP ADMISSION Blood Pressure : / mmHG Vent. Rate : 067 BPM Atrial Rate : 067 BPM P-R Int : 238 ms QRS Dur : 080 ms QT Int : 392 ms P-R-T Axes : 061 -21 076 degrees QTc Int : 414 ms Sinus rhythm with marked sinus arrhythmia with 1st degree A-V block with occasional Premature ventric ular complexes Otherwise normal ECG Confirmed by RAISA POTTER, STEFANY ([id number]), online editor RYDER MARCELO ([id number]) on 07/13/2022 8:00:05 AM Referred By: Confirmed By:STEFANY KLINE MD
[2022-07-12] MEDS: Metoprolol(XL)Succ 25 MG Tablet PO (05:48)
[2022-07-12] MEDS: Aspirin 81 MG TAB.CHEW PO (05:48)
[2022-07-12 06:27] LABS: Absolute Lymphocyte Count 1.84 X10^3/uL (0.83-4.51); Absolute Neutrophil Count 4.4 X10^3/uL (2.0-7.7); Basophil# 0.04 X10^3/uL; Basophil% 0.6 % (0-1); Eosinophil# 0.13 X10^3/uL; Eosinophils% 1.8 % (0-5); Hematocrit 34.6 % (37-47); Lymphocyte # 1.84 X10^3/ul (0.83-4.51); Lymphocyte % 25.7 % (19-41); Mean Corp Hgb Conc 34.7 g/dL (32-36); Mean Corpuscular Hgb 31.1 pg (27.0-32.0); Mean Corpuscular Volume 89.6 fL (81-99); Mean Platelet Vol. 9.8 fl (6.2-12.0); Monocyte# 0.78 X10^3/uL; Monocyte% 10.9 % (0-10); NRBC Flagged by Analyzer 0 % (0-5); Neutrophil # 4.35 X10^3/uL (2.7-7.7); Neutrophil % 60.7 % (47-70); Platelet Count 224 K/mm3 (150-450); RBC Distribution Width CV 12.3 % (11.6-14.6); RBC Distribution Width SD 39.8 fl (35.1-43.9); Red Blood Count 3.86 M/mm3 (4.2-5.4); White Blood Count 7.2 K/mm3 (4.4-11.0)
[2022-07-12 07:07] LABS: Anion Gap 6 (5-15); BUN 14 mg/dL (7-18); BUN/Creat Ratio 17.1 RATIO (10-20); Calcium,Total 8.8 mg/dL (8.5-10.1); Chloride 104 mmol/L (98-107); Creatinine, Serum 0.82 mg/dL (0.55-1.02); EST Glomerular Filtration Rate 72 mL/min (>60); Est Glom Filt Rate - Afr Amer 87 mL/min (>60); Estimated Creatinine Clearance 41.27 ml/min; Glucose 97 mg/dL (74-106); Potassium 4.5 mmol/L (3.5-5.1); Sodium Level 135 mmol/L (136-145)
--- NOTE | 2022-07-12 07:49 | NURSING ---
Verbal report given to MATTHEW Marin. Pt to director of cath lab at this time.
--- NOTE | 2022-07-12 09:07 | CL.D_ITS ---
Patient Name: SHEILA BUCHANAN Study Date: 07/12/2022 Performing: Mick Milton MD Ht: 60 inches 152.4 cm : 1945 Wt: 150.3 lbs 68.07 kg Age: 77 Gender: female BSA: 1.65 PROCEDURE(S) PERFORMED [id number])[facility] CLINICAL PROFILE AND INDICATIONS Indications: Suspected CAD, Cardiac Arrythmia Heart Failure: None Stress/Imaging Date: 07/02/2022tress Test with SPECT MPI: Positive Intermediate Risk Angina Classification Anginal Classification w/in 2 Weeks: CCS III CAD Presentations: Other: chest pain; cardiac dysrhythmia/NSVT; abnormal stress test CONCLUSIONS Elevated Left Ventricular End Diastolic Pressure Normal coronary arteries RECOMMENDATIONS Risk factor modification Medical therapy DESCRIPTION OF PROCEDURE The patient arrived to the procedure lab. The risks and benefits of the procedure as well as a full description of our services here and current unavailability of surgical backup were fully explained to the patient and/or their significant other prior to the catheterization. The Timeout was completed, verifying the correct patient and procedure. The patient's procedural site was prepped and draped in the usual fashion. Local anesthetic was given subcutaneously to right radial region with Lidocaine 2%. Using a modified Seldinger technique, arterial access was obtained via the right radial artery, a 6Fr sheath was inserted. Right Coronary Artery selective angiography was then performed in multiple views using a 5 Fr. 4.0 [place] catheter. Left Coronary Artery selective angiography was performed in multiple views using a 5 Fr. 4.0 [place] catheter. LV to AO pullback pressures were then recorded.The arterial sheath was pulled and a TR Band was applied for hemostasis w/ 10ml air CORONARY ANGIOGRAPHY DOMINANCE: Left Dominant LEFT HEART ASSESSMENT Left Ventricular Ejection Fraction: Not assessed Elevated Left Ventricular End Diastolic Pressure LVEDP: 17 mmHg LEFT MAIN: Angiographically normal LEFT ANTERIOR DESCENDING ARTERY: Angiographically normal CIRCUMFLEX ARTERY: Angiographically normal RAMUS: Angiographically normal RIGHT CORONARY ARTERY: Angiographically normal COMPLICATIONS No Complications PROCEDURE MEDICATIONS Fentanyl 50 mcg IV Versed 1 mg IV Fentanyl 50 mcg IV Versed 1 mg IV Oxygen: 2 L/min via nasal cannula Heparin given IA 07/12/2022 08:22:25 Verapamil 2.5mg, Ntg 100mcgs, 3000 units of Heparin given IA 07/12/2022 08:22:25 SUMMARY OF HEMODYNAMIC DATA Time AIR REST ECG 08:01:19 Art 177/55 (92) 08:13:10 AO 128/63 (90) SA 08:23:42 LV 137/-16, 19 08:29:56 LV 135/-16, 17 08:30:04 LVp 139/-16, 18 08:30:34 AOp 133/47 (79) 08:30:41 Signed By Mick Milton MD On 07/12/2022 09:06:41 Mick Milton MD
--- NOTE | 2022-07-12 09:07 | PCM.PN.CARD ---
Subjective Subjective The patient is status post diagnostic cardiac catheterization. She appears to be resting comfortably at the moment. Objective Data Vital Signs: Vital Signs Temp Pulse Resp BP Pulse Ox O2 Del Method 98.3 F 64 17 121/61 H 97 Room Air 07/12/22 05:43 07/12/22 08:57 07/12/22 08:57 07/12/22 08:57 07/12/22 08:57 07/12/22 08:57 Oxygen Delivery Method Room Air Weight: 150 lb 1 oz Body Mass Index (BMI) 29.2 Intake & Output: Intake and Output for Last 24 Hours 07/10/22 07/11/22 07/12/22 23:59 23:59 23:59 Intake Total 350 / 350 50 / 50 Balance 350 / 350 50 / 50 Lab / Micro Data Result Diagrams: 07/12/22 05:48 07/12/22 05:48 Labs: Laboratory Results - last 24 hr 07/12/22 05:48: WBC 7.2, RBC 3.86 L, Hgb 12.0, Hct 34.6 L, MCV 89.6, MCH 31.1, MCHC 34.7, RDW Std Deviation 39.8, RDW Coeff of Tamela 12.3, Plt Count 224, MPV 9.8, Immature Gran % (Auto) 0.300, Neut % (Auto) 60.7, Lymph % (Auto) 25.7, [place] % (Auto) 10.9 H, Eos % (Auto) 1.8, Baso % (Auto) 0.6, Absolute Neuts (auto) 4.4, Absolute Lymphs (auto) 1.84, Nucleated RBC % 0 07/12/22 05:48: Sodium 135 L, Potassium 4.5, Chloride 104, Carbon Dioxide 25.0, Anion Gap 6, BUN 14, Creatinine 0.82, Estim Creat Clear Calc 41.27, Est GFR (MDRD) Af Amer 87, Est GFR (MDRD) Non-Af 72, BUN/Creatinine Ratio 17.1, Glucose 97, Calcium 8.8 Cardiology Labs/Tests 07/12/22 05:48: WBC 7.2, RBC 3.86 L, Hgb 12.0, Hct 34.6 L, MCV 89.6, MCH 31.1, MCHC 34.7, Plt Count 224, MPV 9.8, Immature Gran % (Auto) 0.300, Neut % (Auto) 60.7, Lymph % (Auto) 25.7, [place] % (Auto) 10.9 H, Eos % (Auto) 1.8, Baso % (Auto) 0.6, Absolute Neuts (auto) 4.4, Nucleated RBC % 0 07/12/22 05:48: Sodium 135 L, Potassium 4.5, Chloride 104, Carbon Dioxide 25.0, Anion Gap 6, BUN 14, Creatinine 0.82, Est GFR (MDRD) Af Amer 87, Est GFR (MDRD) Non-Af 72, BUN/Creatinine Ratio 17.1, Glucose 97, Calcium 8.8 Rhythm: Sinus rhythm ECHO: 07-02-2022 Interpretation Summary The study was technically difficult. Contrast injection was performed. ? Left ventricular systolic function is normal. The estimated ejection fraction is 65 %. Apical false tendon noted. The left atrium is mildly enlarged. Mild mitral valve prolapse, posterior leaflet Trivial mitral valve insufficiency. Trivial tricuspid valve insufficiency. Mild diffuse aortic valve thickening. Unable to estimate RV systolic pressure due to insufficient tricuspid regurgitant envelope. Diastolic function is indeterminate. Stress Test: 07-02-2022 Stress Test Report Date: 07-02-2022 Procedure: Pharmacologic stress nuclear imaging study? Indications: Cardiac dysrhythmias; ventricular tachycardia Consent: Per the patient Procedure: The patient underwent pharmacologic (Regadenoson 0.4mg ) evaluation with a peak heart rate of 106 beats per minute (74%predicted maximal heart rate) and a peak blood pressure of 124/70 mmHg. The baseline ECG demonstrated normal sinus rhythm.? The peak pharmacologic ECG demonstrated no obvious ECG changes. There was an occasional PVC and transient ventricular trigeminy during recovery. There was no complaint of chest discomfort during pharmacologic infusion or recovery. The examination was discontinued secondary to completion of protocol. Impression: 1.? Pharmacologic (Regadenoson) evaluation 2.? Peak pharmacologic ECG with no obvious ECG changes. 3.? There was an occasional PVC and transient ventricular trigeminy during recovery. 4.? Nuclear images pending Myocardial perfusion imaging study: Technique: The patient was injected with 11.9 millicuries of technetium 99m Cardiolite and subsequently rest SPECT Cardiolite nuclear imaging was obtained in the horizontal long, vertical long, and short axis views. The patient underwent pharmacologic (Regadenoson) evaluation with a peak heart rate of 106 beats per minute (74% percent predicted maximal heart rate) and a peak blood pressure of 124/70 mmHg. The patient was injected with 34.2 millicuries of technetium 99m Cardiolite and subsequently stress SPECT Cardiolite nuclear imaging was obtained in the horizontal long, vertical long, and short axis views.? A gated Cardiolite study at peak stress was obtained. Interpretation: Rest and stress SPECT Cardiolite nuclear imaging status post realignment, normalization, and attenuation correction demonstrate a small area of diminished myocardial perfusion/tracer uptake in the mid anterior segments which appears to be somewhat more prominent following stress as opposed to rest.? There is end systolic thickening and brightening.? The gated Cardiolite study demonstrates myocardial thickening and inward wall motion.? The reported LVEF is 79%. Impression: 1.? Rest and stress SPECT current nuclear imaging demonstrate a small area of diminished myocardial perfusion/tracer uptake in the mid anterior segments which appears to be somewhat more prominent following stress of the posterior breast potentially compatible with an area of previous myocardial injury/infarction with juan-infarct related myocardial ischemia, however, an element of shifting soft tissue attenuation/artifact cannot necessarily be excluded. 2.? The gated Cardiolite study reports an LVEF of 79%. Cardiac Cath: 07-12-2022 CONCLUSIONS Elevated Left Ventricular End Diastolic Pressure Normal coronary arteries RECOMMENDATIONS Risk factor modification Medical therapy DESCRIPTION OF? PROCEDURE The patient arrived to the procedure lab. The risks and benefits of the procedure as well as a full description of our services here and current unavailability of surgical backup were fully explained to the patient and/or their significant other prior to the catheterization. The Timeout was completed, verifying the correct patient and procedure. The patient's procedural site was prepped and draped in the usual fashion. Local anesthetic was given subcutaneously to right radial region with Lidocaine 2%. Using a modified Seldinger technique, arterial access was obtained via the right radial artery, a 6Fr sheath was inserted.? Right Coronary Artery selective angiography was then performed in multiple views using a 5 Fr. 4.0 [place] catheter. Left Coronary Artery selective angiography was performed in multiple views using a 5 Fr. 4.0 [place] catheter. LV to AO pullback pressures were then recorded.The arterial sheath was pulled and a TR Band was applied for hemostasis w/ 10ml air CORONARY ANGIOGRAPHY DOMINANCE:? Left Dominant LEFT HEART ASSESSMENT Left Ventricular Ejection Fraction: Not assessed Elevated Left Ventricular End Diastolic Pressure LVEDP: 17 mmHg LEFT MAIN: Angiographically normal LEFT ANTERIOR DESCENDING ARTERY: Angiographically normal CIRCUMFLEX ARTERY: Angiographically normal RAMUS: Angiographically normal RIGHT CORONARY ARTERY: Angiographically normal COMPLICATIONS No Complications Physical Exam Const alert, oriented x3, no apparent distress and healthy appearing Orientation / Consciousness: awake HEENT normocephalic, head/scalp atraumatic and hearing grossly normal bilaterally Eyes PERRL, EOMs intact bilaterally, conjunctivae normal and no scleral icterus Neck full ROM, supple and no JVD Carotids: normal carotid upstroke Resp normal respiratory effort and clear to auscultation bilaterally Cardio regular rate, regular rhythm, S1 normal heart sound and S2 normal heart sound GI normal to inspection, nondistended, normoactive bowel sounds Extremity no pedal edema Skin no rashes or lesions noted Psych mental status grossly normal Assessment & Plan Assessment/Plan (1) Chest pain: PLAN: The patient has undergone cardiovascular evaluation for her chest discomfort. Her cardiac enzymes have been negative. Her ECG has not been reported as demonstrating any acute ECG changes. Her cardiac catheterization is completed. Her coronary anatomy appears to be angiographically normal. From a cardiac standpoint it does not appear that she has underlying classic atherosclerotic CAD to explain her symptoms. (2) Abnormal stress test: PLAN: The patient did have an abnormal stress test. Based upon her ongoing evaluation and care it appears this is a false positive potentially secondary to motion artifact and/or soft tissue attenuation/artifact-breast attenuation. (3) Ventricular tachycardia: PLAN: The patient has had concerns of cardiac dysrhythmias. Her 30-day ambulatory event monitor demonstrated a 4 beat wide-complex tachycardia reported as nonsustained VT which upon further evaluation raises a concern of a combination of aberrancy and ventricular ectopy. She has undergone further noninvasive and invasive evaluation. She has not been found to have classic atherosclerotic CAD to explain any cardiac dysrhythmia. At the moment she is continuing low-dose beta-erma therapy. (4) Bradycardia: PLAN: She also has a history of bradycardia. There are concerns as to whether or not she has a bradycardia-tachycardia type syndrome based upon her history and information provided by her daughter-and [facility] anesthesiologist. Thus it may be reasonable to refer her to electrophysiology, knowing that she has undergone Holter monitor, event monitor, echocardiogram, stress test, and now cardiac catheterization, for further electrophysiology input with respect to any concerns of her underlying conduction system for the need for additional EP study and/or adjustment of medication and/or permanent pacemaker support. (5) Nonrheumatic mitral (valve) prolapse: PLAN: The patient does have a history of mitral valve prolapse. She has been recently evaluated with a transthoracic echocardiogram as noted above. She will continue to be followed as deemed appropriate. (6) Essential hypertension: PLAN: The patient has a history of hypertension. She will continue medical management and adjustment taking into consideration her underlying cardiac rhythm related concerns. Addt'l Comments The patient's case was discussed and reviewed with the patient as well as her daughter and [facility] anesthesiologist. This note was generated using a voice recognition system and there may be incorrect words, spelling or punctuation that were not noted when reviewing the office note prior to saving. Procedure Criteria Type of Procedure Procedure Type: Elective Elective Risks - COVID COVID Risk Discussion: The surgeon/proceduralist and patient have discussed in detail the risk of exposure to and/or potential harm posed by the COVID-19 virus with having a surgery/procedure at this time versus the risk of delaying the surgery/procedure. It is not possible to know either the risk of delaying the surgery or procedure or chance of getting an infection with perfect accuracy, but a joint decision was made between the patient and the surgeon/proceduralist to proceed at this time with the scheduled surgery/procedure as indicated on the consent form.
[2022-07-12] MEDS: CARBAMAZEPINE 100 MG TAB.CHEW PO (09:14)
[2022-07-12] MEDS: 0.9% Normal Saline 1,000 ML 75 ML IV (09:14)
[2022-07-12] MEDS: Cholecalciferol (VIT D3) 25 MCG TABLET (1,000 UNITS) 50 MCG PO (09:14)
[2022-07-12] MEDS: Multivitamins,Ther W-Minerals Tablet 1 TABLET PO (09:15)
[2022-07-12] MEDS: Enoxaparin 40 MG/0.4 ML Syringe SC (09:15)
[2022-07-12] MEDS: Sodium Chloride 1 GM Tablet PO (09:15)
--- NOTE | 2022-07-12 11:04 | DCINST_ITS ---
Discharge Instructions Diet Discharge Diet: Low fat / Low cholesterol Activity Discharge Activity: Return to Normal Activity Dressing / Incision Call your doctor if you observe: Shortness of breath, Dizziness, Fainting spells and Chest pain Follow Up Care Test Results: Test results from this visit will be discussed in further detail at your follow- up appointment, if applicable. Discharge Plan Admission Admit Date/Time: 07/10/22 10:39 Primary Reason for Your Visit: Chest pain- ACS ruled out Attending Provider: Kristine Morataya Primary Care Provider: Orlando Sanchez Consulting Providers: Ivan Kirkland ; Lenore Lei Discharge Orders/Prescriptions Prescriptions: Continued aspirin 81 mg tablet,chewable 81 mg PO DAILY acetaminophen 500 mg tablet 500 mg PO Q8 PRN (Reason: Headache) Centrum Silver 0.4-300-250 mg-mcg-mcg tablet 1 tab PO DAILY sodium chloride 1 gram tablet 1,000 mg PO DAILY Qty: 90 0RF carbamazepine 100 mg tablet,chewable 100 mg PO BID Qty: 180 1RF cholecalciferol (vitamin D3) 1,000 UNIT tablet 2,000 unit PO DAILYCM 0RF amlodipine 2.5 mg tablet See Rx Instructions .ROUTE .COMPLEX Qty: 90 3RF Dose Instruction: TAKE 1 TABLET BY MOUTH EVERY DAY Rx Instructions: TAKE 1 TABLET BY MOUTH EVERY DAY metoprolol succinate 25 mg tablet extended release 24 hr 25 mg PO DAILY Qty: 30 11RF Referrals / Follow Up: Orlando Sanchez DO [Primary Care Provider] - In 1 Week Zachary Bangura MD [Med Staff - Consulting] - See Referral Note (Dr. Milton office setting up referral. ) Iliana Prince BANKING CENTER MANAGER, BANKING CENTER MANAGER-C [Med Staff - Adv Practice Prof] - See Referral Note (08/18/2022) Gerard Paul NP, BANKING CENTER MANAGER-C [Med Staff - Adv Practice Prof] - See Referral Note (As scheduled 08/24/2022) Disposition Disposition (needs filled in before D/C Order can be placed): Home, Self Care
--- NOTE | 2022-07-12 11:13 | PCM.DC.SUM ---
Documented by User: Brittni Cruz NP, PLAN COORDINATOR-C 07/12/22 11:21 Providers Date of Admission: 07/10/22 Date of Discharge: 07/12/22 Primary Care Physician: Dr. Orlando Sanchez, Consultations 07/10/22 12:19 Consult: Cardiology Routine Consulting Provider: Ivan Kirkland Reason for Consult: chest pain EMERGENT Consult: No MD Notified: Yes Date Notified: 07/10/22 Time Notified: 10:42 Method of Notification: Text Reason For Visit: CHEST PAIN Diagnosis Discharge Diagnosis (1) Chest pain: Status: Acute Code(s): R07.9 - Chest pain, unspecified (2) Abnormal stress test: Status: Acute Code(s): R94.39 - Abnormal result of other cardiovascular function study (3) Ventricular tachycardia: Status: Acute Code(s): I47.2 - Ventricular tachycardia (4) Bradycardia: Status: Acute Code(s): R00.1 - Bradycardia, unspecified (5) Nonrheumatic mitral (valve) prolapse: Status: Chronic Code(s): I34.1 - Nonrheumatic mitral (valve) prolapse (6) Essential hypertension: Status: Chronic Code(s): I10 - Essential (primary) hypertension Medications at Discharge Home Medications cholecalciferol (vitamin D3) 25 mcg (1,000 unit) tablet 2,000 unit PO DAILYCM 12/07/19 aspirin 81 mg chewable tablet 81 mg PO DAILY 03/06/20 kaelqhac-naq-oxxoz acid 0.4 mg-lycopene 300 mcg-lutein 250 mcg tablet (Centrum Silver) 1 tab PO DAILY 11/17/20 amlodipine 2.5 mg tablet See Rx Instructions .Route .COMPLEX #90 tabs 01/12/22 acetaminophen 500 mg tablet 500 mg PO Q8 PRN Headache 02/01/22 carbamazepine 100 mg chewable tablet 100 mg PO BID #180 tabs 04/22/22 sodium chloride 1 gram tablet 1,000 mg PO DAILY #90 tabs 04/22/22 metoprolol succinate 25 mg tablet,extended release 24 hr 25 mg PO DAILY #30 tabs 05/21/22 Hospital Course Operations None Procedures Cardiac catheterization Summary of Care Provided Hospital Course: Patient is a 77-year-old female admitted 07/10/2022 due to chest pain. 1. Chest pain-ACS ruled out. Underwent heart cath which demonstrated normal coronary arteries. Continue ongoing outpatient evaluation as noted below. Follow-up with PCP and cardiology at discharge. 2. Ventricular tachycardia-concern for Bradycardia-tachycardia syndrome. Referral by cardiology to EP at [facility], Dr. Bangura. Continue home metoprolol regimen. 3. DALLAS-history of difficult to control sleep apnea. In the process of transition from CPAP to BiPAP. Continue close follow-up with pulmonary medicine. 4. History of trigeminal neuralgia-follows with neurology. 5. Suspected peripheral vestibulopathy-following with neurology. 6. SIADH-stable. Continue sodium tabs. 7. Hypertension-continue amlodipine, metoprolol. 8. History of mitral valve prolapse/mitral valve regurgitation-stable per recent echo. Patient seen and examined prior to discharge. Physical assessment as noted below. Patient is stable for discharge with follow up recommendations as noted above. This patient was seen by SHIRLEY Jeffrey under the supervision of Dr. Morataya. Time spent examining patient, reviewing data and subsequent management of care: 23 minutes Physical Exam Const alert, oriented x3 and no apparent distress Orientation / Consciousness: awake, oriented to person, oriented to place and oriented to time HEENT normocephalic and moist oral mucous membranes Eyes PERRL, EOMs intact bilaterally and conjunctivae normal Neck no lymphadenopathy Resp normal respiratory effort and clear to auscultation bilaterally Cardio regular rate, regular rhythm and no murmurs Peripheral Pulses: pulses 2+ throughout GI normal to inspection, nondistended, normoactive bowel sounds, non-tender and non-distended Extremity normal to inspection Skin no rashes or lesions noted Lesions: no lesions Rashes: no rashes Trauma: no lacerations or abrasions Neuro CN's II-XII intact bilaterally, no focal motor deficits, no sensory deficits noted and deep tendon reflexes 2+ bilaterally Psych mental status grossly normal and affect normal Weight / BMI Weight Weight: 150 lb 1 oz Body Mass Index (BMI) 29.2 ABG / Lab / Microbiology Data Result Diagrams: 07/12/22 05:48 07/12/22 05:48 Laboratory: Laboratory Results - last 24 hr 07/12/22 05:48: WBC 7.2, RBC 3.86 L, Hgb 12.0, Hct 34.6 L, MCV 89.6, MCH 31.1, MCHC 34.7, RDW Std Deviation 39.8, RDW Coeff of Tamela 12.3, Plt Count 224, MPV 9.8, Immature Gran % (Auto) 0.300, Neut % (Auto) 60.7, Lymph % (Auto) 25.7, Harvey % (Auto) 10.9 H, Eos % (Auto) 1.8, Baso % (Auto) 0.6, Absolute Neuts (auto) 4.4, Absolute Lymphs (auto) 1.84, Nucleated RBC % 0 07/12/22 05:48: Sodium 135 L, Potassium 4.5, Chloride 104, Carbon Dioxide 25.0, Anion Gap 6, BUN 14, Creatinine 0.82, Estim Creat Clear Calc 41.27, Est GFR (MDRD) Af Amer 87, Est GFR (MDRD) Non-Af 72, BUN/Creatinine Ratio 17.1, Glucose 97, Calcium 8.8 D/C Instructions Discharge Diet: Low fat / Low cholesterol Call your doctor if you observe: Shortness of breath, Dizziness, Fainting spells and Chest pain Meaningful Use Info Meaningful Use Diagnoses (Choose all that apply): None applicable Discharge Plan Admission Admit Date/Time: 07/10/22 10:39 Primary Reason for Your Visit: Chest pain- ACS ruled out Attending Provider: Kristine Morataya Primary Care Provider: Orlando Sanchez Consulting Providers: Ivan Kirkland ; Lenore Lei Discharge Orders/Prescriptions Prescriptions: Continued aspirin 81 mg tablet,chewable 81 mg PO DAILY acetaminophen 500 mg tablet 500 mg PO Q8 PRN (Reason: Headache) Centrum Silver 0.4-300-250 mg-mcg-mcg tablet 1 tab PO DAILY sodium chloride 1 gram tablet 1,000 mg PO DAILY Qty: 90 0RF carbamazepine 100 mg tablet,chewable 100 mg PO BID Qty: 180 1RF cholecalciferol (vitamin D3) 1,000 UNIT tablet 2,000 unit PO DAILYCM 0RF amlodipine 2.5 mg tablet See Rx Instructions .ROUTE .COMPLEX Qty: 90 3RF Dose Instruction: TAKE 1 TABLET BY MOUTH EVERY DAY Rx Instructions: TAKE 1 TABLET BY MOUTH EVERY DAY metoprolol succinate 25 mg tablet extended release 24 hr 25 mg PO DAILY Qty: 30 11RF Referrals / Follow Up: Orlando Sanchez DO [Primary Care Provider] - In 1 Week Willem,Zachary, MD [Med Staff - Consulting] - See Referral Note (Dr. Milton office setting up referral. ) Iliana Prince PLAN COORDINATOR, PLAN COORDINATOR-C [Med Staff - Adv Practice Prof] - See Referral Note (08/18/2022) Gerard Paul PLAN COORDINATOR, PLAN COORDINATOR-C [Med Staff - Adv Practice Prof] - See Referral Note (As scheduled 08/24/2022) Disposition Disposition (needs filled in before D/C Order can be placed): Home, Self Care Documented by User: Dr. Kristine Morataya MD 07/12/22 14:10 Providers Date of Admission: 07/10/22 Reason For Visit: CHEST PAIN Diagnosis Discharge Diagnosis (1) Chest pain: Status: Acute Code(s): R07.9 - Chest pain, unspecified (2) Abnormal stress test: Status: Acute Code(s): R94.39 - Abnormal result of other cardiovascular function study (3) Ventricular tachycardia: Status: Acute Code(s): I47.2 - Ventricular tachycardia (4) Bradycardia: Status: Acute Code(s): R00.1 - Bradycardia, unspecified (5) Nonrheumatic mitral (valve) prolapse: Status: Chronic Code(s): I34.1 - Nonrheumatic mitral (valve) prolapse (6) Essential hypertension: Status: Chronic Code(s): I10 - Essential (primary) hypertension Medications at Discharge Home Medications cholecalciferol (vitamin D3) 25 mcg (1,000 unit) tablet 2,000 unit PO DAILYCM 12/07/19 aspirin 81 mg chewable tablet 81 mg PO DAILY 03/06/20 kbracdzc-mqh-yykmc acid 0.4 mg-lycopene 300 mcg-lutein 250 mcg tablet (Centrum Silver) 1 tab PO DAILY 11/17/20 amlodipine 2.5 mg tablet See Rx Instructions .Route .COMPLEX #90 tabs 01/12/22 acetaminophen 500 mg tablet 500 mg PO Q8 PRN Headache 02/01/22 carbamazepine 100 mg chewable tablet 100 mg PO BID #180 tabs 04/22/22 sodium chloride 1 gram tablet 1,000 mg PO DAILY #90 tabs 04/22/22 metoprolol succinate 25 mg tablet,extended release 24 hr 25 mg PO DAILY #30 tabs 05/21/22 ABG / Lab / Microbiology Data Result Diagrams: 07/12/22 05:48 07/12/22 05:48 Discharge Plan Admission Admit Date/Time: 07/10/22 10:39 Primary Reason for Your Visit: Chest pain- ACS ruled out Attending Provider: Kristine Morataya Primary Care Provider: Orlando Sanchez Consulting Providers: Ivan Kirkland ; Lenore Lei Discharge Orders/Prescriptions Prescriptions: Continued aspirin 81 mg tablet,chewable 81 mg PO DAILY acetaminophen 500 mg tablet 500 mg PO Q8 PRN (Reason: Headache) Centrum Silver 0.4-300-250 mg-mcg-mcg tablet 1 tab PO DAILY sodium chloride 1 gram tablet 1,000 mg PO DAILY Qty: 90 0RF carbamazepine 100 mg tablet,chewable 100 mg PO BID Qty: 180 1RF cholecalciferol (vitamin D3) 1,000 UNIT tablet 2,000 unit PO DAILYCM 0RF amlodipine 2.5 mg tablet See Rx Instructions .ROUTE .COMPLEX Qty: 90 3RF Dose Instruction: TAKE 1 TABLET BY MOUTH EVERY DAY Rx Instructions: TAKE 1 TABLET BY MOUTH EVERY DAY metoprolol succinate 25 mg tablet extended release 24 hr 25 mg PO DAILY Qty: 30 11RF Referrals / Follow Up: Orlando Sanchez, [Primary Care Provider] - In 1 Week Zachary Bangura MD [Med Staff - Consulting] - See Referral Note (Dr. Milton office setting up referral. ) Iliana Prince NP, PLAN COORDINATOR-C [Med Staff - Adv Practice Prof] - See Referral Note (08/18/2022) Gerard Paul PLAN COORDINATOR, PLAN COORDINATOR-C [Med Staff - Adv Practice Prof] - See Referral Note (As scheduled 08/24/2022) Disposition Disposition (needs filled in before D/C Order can be placed): Home, Self Care Charges/Coding Addendum Addendum: This patient was seen in conjunction with Brittni Cruz NP. I have independently interviewed and examined the patient and reviewed pertinent historical, laboratory, and other data. I have reviewed her note and concur with her documentation 77 y/o female with past medical history of hypertension, GERD, DALLAS who comes in with chest pain that started about an hour and half hours prior to admission. Chest pain was described as left-sided, radiated to her left shoulder. Denied any associated symptoms. Patient has had an abnormal cardiac cath in the outpatient. Cardiac cath was being planned. Patient was continued on aspirin, cardiology consulted. Patient underwent cardiac cath on 07/12/2022 that was unremarkable. She was referred to electrophysiology in [facility] for her wade-tachy syndrome On the day of discharge, patient was seen and examined. Denied any new complaints. Physical Exam: Gen: Comfortable, not pale, not jaundiced CVS:HS I +II, regular, no murmurs RESP: Diminished at lung bases GI: BS present and normal, soft, nontender, no palpable organs EXT:No edema Time spent coordinating all aspects of patient's care, discussing with cardiology and nursin minutes Visit Charges OBSV E&M: [id number] Observation care discharge
--- NOTE | 2022-07-12 11:37 | CASEMGMT ---
This RN RAZA to room with ROSENTHAL form, explanation done-pt/daughter voice understanding, and daughter signs ROSENTHAL form for pt at this time as pt just had right radial cath. Original ROSENTHAL to chart and copy to pt. Pt/daughter do inquire about advanced directives and [facility] SW aware. Pt voices no further questions/concerns/needs with discharge. SStaten MATTHEW PERSON
--- NOTE | 2022-07-12 12:16 | CASEMGMT ---
RN RAZA notified SW that patient would like to complete a Healthcare Power of [facility] and a Healthcare Living Will. SW met with patient and her daughter. SW assisted patient in completing documents. Copies were made and given to patient along with originals. A copy of each was also placed in patient's chart. Emilia GERARD
--- NOTE | 2022-07-12 14:09 | NURSING ---
All documentation and medication administration completed by Hunter Valerio RN completed under supervision of this RN.
== END 2022-07-12 13:29 | disposition home or self-care (01) ==
LOC: ED 11:21 → PCU 11:32
PROVIDERS: Admitting Provider Student in an Organized Health Care Education/Training Program; Emergency Provider Emergency Medicine; PCP Family Medicine; Visit Provider Internal Medicine
DX: R07.89 Other chest pain (principal); I49.5 Sick sinus syndrome; E22.2 Syndrome of inappropriate secretion of antidiuretic hormone; I10 Essential (primary) hypertension; R73.9 Hyperglycemia, unspecified; Z79.82 Long term (current) use of aspirin; R06.02 Shortness of breath; R94.39 Abnormal result of other cardiovascular function study; K21.9 Gastro-esophageal reflux disease without esophagitis; Z79.899 Other long term (current) drug therapy; G47.33 Obstructive sleep apnea (adult) (pediatric)
CPT/HCPCS: 36415; 71045; 80048; 84484; 85025; 93005; 93458; 96360; 96361; 96372; 97162; 97165; 99152; 99153; 99218; 99285; J7030; J7040; A4216; C1769; C1894; G0378; Q9967

== ENCOUNTER 2022-07-15 14:26 | Emergency (ER) | payer MEDICARE, SELFPAY ==
[2022-07-15 14:27] VITALS: BP 154/64; PULSE 84; RESP 14; TEMP 36.8; O2SAT 94; BMI 29.9
--- NOTE | 2022-07-15 15:03 | CT_ITS ---
STUDY: CT FACIAL BONES WITHOUT CONTRAST REASON FOR EXAM: Female, 77 years old. Trauma RADIATION DOSAGE (If Supplied By Facility): CTDIvol = ( 29.38 ) mGy, DLP = ( 547.46 ) mGycm TECHNIQUE: The patient was scanned in a multi detector CT scanner. Sagittal and coronal images were reconstructed. Individualized dose optimization techniques were used for this CT. COMPARISON: None. FINDINGS: Normal soft tissue structures. Nasal septal deviation towards the right side of the midline. Normal orbital koenig and orbital contents. Findings suggestive of a nondisplaced fracture of the left nasal bone. Normal facial bones. There is no demonstrated fracture. Normal visualized paranasal sinuses. CT/Sinus/Facial Bone IMPRESSION: Findings suggestive of a nondepressed fracture of the left nasal bone. Nasal septal deviation towards the right side of the midline. Electronically Signed: Renaldo Machuca MD at 15:43 EDT ,
--- NOTE | 2022-07-15 15:03 | EKG12_ITS ---
Test Reason : dizziness Blood Pressure : / mmHG Vent. Rate : 074 BPM Atrial Rate : 074 BPM P-R Int : 224 ms QRS Dur : 078 ms QT Int : 378 ms P-R-T Axes : 065 -23 074 degrees QTc Int : 419 ms Sinus rhythm with 1st degree A-V block Otherwise normal ECG Confirmed by ORTIZ POTTER, LEELEE ([id number]), school photograph editor RYDER MARCELO ([id number]) on 07/16/2022 2:12:52 PM Referred By: Zina Confirmed By:FABIAN ALCANTAR MD
--- NOTE | 2022-07-15 15:03 | CT_ITS ---
STUDY: CT CERVICAL SPINE WITHOUT CONTRAST REASON FOR EXAM: Female, 77 years old. Trauma RADIATION DOSAGE (If Supplied By Facility): CTDIvol = ( 14.05 ) mGy, DLP = ( 288.57 ) mGycm TECHNIQUE: High resolution transaxial imaging was performed without contrast material. Sagittal and coronal images were reconstructed. Individualized dose optimization techniques were used for this CT. COMPARISON: None FINDINGS: Normal craniovertebral junction. There are degenerative changes of the anterior atlantoaxial articulation. Normal odontoid process. Normal cervical lordosis. Normal vertebral bodies and posterior osseous elements. C2-3: Normal endplates. Normal disc height and morphology. Normal central canal and intervertebral neuroforamina. C3-4: Mild degree of disc space narrowing. Facet joint osteoarthritis and hypertrophy worse on the right side. Mild degree of right neural foraminal stenosis. C4-5: Mild degree of disc space narrowing. Facet joint osteoarthritis and hypertrophy worse on the right side. Right neural foraminal stenosis. C5-6: Moderate degree of disc space narrowing with spondylosis. Uncovertebral arthrosis. Bilateral neural foraminal stenosis worse on the left side. C6-7: Moderate degree of disc space narrowing. Uncovertebral arthrosis. Bilateral neural foraminal stenosis. C7-T1: Normal endplates. Normal disc height and morphology. Normal central canal and intervertebral neuroforamina. Findings suggestive of scarring in both upper lobes. CT/Spine Cervical without Contras IMPRESSION: Multilevel degenerative changes, as described above. Electronically Signed: Renaldo Machuca MD at 15:44 EDT ,
--- NOTE | 2022-07-15 15:03 | CT_ITS ---
STUDY: CT BRAIN WITHOUT CONTRAST REASON FOR EXAM: Female, 77 years old. Head injury RADIATION DOSAGE (If Supplied By Facility): CTDIvol = ( 44.99 ) mGy, DLP = ( 779.24 ) mGycm TECHNIQUE: Transaxial CT imaging of the brain was performed without administration of intravenous contrast material. Individualized dose optimization techniques were used for this CT. COMPARISON: No relevant priors. FINDINGS: Multiple small hypodensities seen in the scalp overlying the frontal bones. Normal calvarium. There is mild cerebral atrophy with widening of the extra-axial spaces and ventricular dilatation. Normal white matter tracts of the cerebral hemispheres. Normal basal ganglia and thalami. Normal brainstem. Normal cerebellum. There is no intracranial hemorrhage. There are no findings of an acute ischemic infarction. Atherosclerotic plaque formation of the cavernous portions of the internal carotid arteries bilaterally. Normal visualized paranasal sinuses. CT/Brain/Head without Contrast IMPRESSION: Chronic involutional changes of the brain. Electronically Signed: Renaldo Machuca MD at 15:41 EDT ,
--- NOTE | 2022-07-15 15:14 | EX.ED.DYSGE1 ---
HPI History of Present Illness Chief Complaint: Dizziness Informant: patient Narrative Narrative: Presents increased dizziness after head injury this morning. Got out of bed felt chills went to become mobile and was on the ground. She try to get her self up fell back down hitting her head again. She takes baby aspirin's. No other anticoagulants. Denies chest pains. Denies urine symptoms. Denies vomiting or diarrhea. Patient status post heart cath [address] Milton for abnormal stress test. She states her vessels were clear. She denies any cough symptoms. Pain around the nasal bridge region. Prior similar symptoms: [facility] Medical History Abnormal stress test Anxiety Bradycardia Closed fracture of right distal fibula Essential hypertension GERD (gastroesophageal reflux disease) History of rheumatic fever as a child Hyponatremia Mitral valve prolapse Nonrheumatic mitral (valve) prolapse [place] (obstructive sleep apnea) Pressure ulcer caused by device SIADH (syndrome of inappropriate ADH production) Syncope Trigeminal neuralgia UTI (urinary tract infection) Ventricular tachycardia Home Medications cholecalciferol (vitamin D3) 25 mcg (1,000 unit) tablet 2,000 unit PO DAILYCM 12/07/19 [Rx Last Taken Unknown] aspirin 81 mg chewable tablet 81 mg PO DAILY 03/06/20 [History Last Taken Unknown] ubtnynsq-gqw-unuid acid 0.4 mg-lycopene 300 mcg-lutein 250 mcg tablet (Centrum Silver) 1 tab PO DAILY 11/17/20 [History Last Taken Unknown] amlodipine 2.5 mg tablet See Rx Instructions .Route .COMPLEX #90 tabs 01/12/22 [Rx Last Taken 07/09/22] acetaminophen 500 mg tablet 500 mg PO Q8 PRN Headache 02/01/22 [History Last Taken 07/09/22] carbamazepine 100 mg chewable tablet 100 mg PO BID #180 tabs 04/22/22 [Rx Last Taken 07/10/22] sodium chloride 1 gram tablet 1,000 mg PO DAILY #90 tabs 04/22/22 [Rx Last Taken 07/10/22 12:28] metoprolol succinate 25 mg tablet,extended release 24 hr 25 mg PO DAILY #30 tabs 05/21/22 [Rx Last Taken 07/10/22] Allergy/AdvReac Type Severity Reaction Status Date / Time codeine Allergy Unknown Verified 07/15/22 14:27 Family History Mother Colon cancer Father Heart disease Myocardial infarction Surgical History H/O tubal ligation History of left heart catheterization (LHC) (~07/12/22) Hx of cholecystectomy S/P ORIF (open reduction internal fixation) fracture Status post right foot surgery Social History housing: apartment pets and animals: No Smoking Status: Never smoker alcohol intake: never substance use type: does not use caffeine: Yes Type: coffee what type of physical activity do you participate in: walking frequency: 1-2 times per week do you feel safe at home: Yes ROS ROS ED Constitutional Constitutional ED: Denies chills, fever(s) or sweats Eyes Eyes: Denies change in vision ENT ENT ED: Denies dysphagia or sore throat Cardiovascular Cardiovascular: Denies chest pain, leg edema, palpitations or racing heartbeat Respiratory/Chest Respiratory/Chest: Denies cough, dyspnea or dyspnea on exertion Gastrointestinal Gastrointestinal: Denies abdominal pain, diarrhea, nausea or vomiting Genitourinary Genitourinary ED: Denies dysuria, hematuria or urinary frequency Musculoskeletal Musculoskeletal: Denies back pain, extremity pain or neck pain Integumentary Denies rash or wounds Neurologic Neurologic: Reports other Details: Dizziness ; Denies headache(s), paresthesias or weakness EXAM Physical Exam Const Vital Signs: 07/15/22 14:27 07/15/22 14:48 Temperature 98.2 F Temperature Source Temporal Pulse Rate 84 Respiratory Rate 14 Respiratory Pattern Normal Blood Pressure 154/64 H Blood Pressure Mean 94 Pulse Ox 94 Oxygen Delivery Method Room Air Positive well nourished and well developed Constitutional Narrative: GCS 15. General Appearance ED: well developed and NAD HEENT Reports moist mucous membranes HEENT Narrative: Ecchymosis at the nasal bridge, no septal hematoma. normocephalic Eyes PERRL, EOMs intact bilaterally and conjunctivae normal General Eye ED: Yes normal appearance of both eyes Neck no lymphadenopathy and supple General: Negative for tenderness Chest Wall Chest: Negative for tenderness Resp normal respiratory effort and normal air movement Effort and Inspection: symmetric chest movement; Negative for respiratory distress Cardio regular rate, regular rhythm and no murmurs Peripheral Pulses: pulses 2+ throughout GI normal to inspection, nondistended, normoactive bowel sounds and non-tender Palpation: Negative for guarding or rebound tenderness present Back/Spine no CVA tenderness and no thoracic nor lumbar tenderness Extremity normal to inspection General Extremety ED: Negative for edema or tenderness General Extremity: Negative for edema Neuro oriented x3, CN's II-XII intact bilaterally and no sensory deficits noted Sensorium / Orientation: awake and alert Skin Skin Narrative: See above MDM MDM MDM Narrative Medical decision making narrative: Patient reported chills this morning no cough. No fevers. Urine obtained negative. EKG was sinus rhythm with no acute findings. Patient with concussion symptoms after head injury. Facial bruising, trauma scans head face and neck obtain only finding to be nondisplaced nasal bone fracture. Concussion precaution discussed with the patient. She will continue Tylenol she took at 1 PM today. She is able to ambulate in the ED. She will follow-up with her PCP. All questions were answered. Lab Data Attestation: I reviewed the patient's lab results. Labs: Laboratory Results - last 24 hr 07/15/22 15:10 Urine Color Straw Urine Clarity Clear Urine pH 5.0 Ur Specific [place] 1.010 Urine Protein Negative Urine Glucose (UA) Normal Urine Ketones Negative Urine Occult Blood Negative Urine Nitrite Negative Urine Bilirubin Negative Urine Urobilinogen Normal Ur Leukocyte Esterase Negative Urine RBC 0 SEEN Urine WBC 0 SEEN Ur Squamous Epith Cells 0-5 SEEN Urine Bacteria RARE Urine Mucus 0 SEEN Radiography Diagnostic Testing: Clinical Impression(s) from Imaging Studies Brain CT 07/15/22 15:03 IMPRESSION: Chronic involutional changes of the brain. Electronically Signed: Renaldo Machuca MD at 15:41 EDT , Cervical Spine CT 07/15/22 15:03 IMPRESSION: Multilevel degenerative changes, as described above. Electronically Signed: Renaldo Machuca MD at 15:44 EDT , Facial/Sinus 07/15/22 15:03 IMPRESSION: Findings suggestive of a nondepressed fracture of the left nasal bone. Nasal septal deviation towards the right side of the midline. Electronically Signed: Renaldo Machuca MD at 15:43 EDT , EKG Initial EKG: Attestation: I personally reviewed and interpreted this EKG as follows: Comments: Sinus rate of 74, no ST or T wave changes, first-degree AV block. Discharge Plan Triage Chief Complaint: Dizziness ED Provider: Milton Izaguirre Dx/Rx/DC Orders Clinical Impression: Concussion, Contusion of face, Closed undisplaced fracture of nasal bone Instructions: ED Concussion, ED Facial Contusion, ED Nose Fracture, with X-Ray, ED Head Injury (Adult) Prescriptions: No Action aspirin 81 mg tablet,chewable 81 mg PO DAILY acetaminophen 500 mg tablet 500 mg PO Q8 PRN (Reason: Headache) Centrum Silver 0.4-300-250 mg-mcg-mcg tablet 1 tab PO DAILY sodium chloride 1 gram tablet 1,000 mg PO DAILY Qty: 90 0RF carbamazepine 100 mg tablet,chewable 100 mg PO BID Qty: 180 1RF cholecalciferol (vitamin D3) 1,000 UNIT tablet 2,000 unit PO DAILYCM 0RF amlodipine 2.5 mg tablet See Rx Instructions .ROUTE .COMPLEX Qty: 90 3RF Dose Instruction: TAKE 1 TABLET BY MOUTH EVERY DAY Rx Instructions: TAKE 1 TABLET BY MOUTH EVERY DAY metoprolol succinate 25 mg tablet extended release 24 hr 25 mg PO DAILY Qty: 30 11RF Primary Care Provider: Orlando Sanchez Referrals: Nasir Silva MD [Med Staff - Courtesy Staff] - 1-2 Weeks Orlando Sanchez DO [Primary Care Provider] - 3-5 Days Activity Restrictions/Additional Instructions: CT head, neck, face noting only nondisplaced nasal bone fracture. Use Tylenol every 6 hours as needed. Disposition Disposition: Home, Self Care Discharge Date/Time: 07/15/22 16:24
[2022-07-15 15:15] LABS: Mucous, Urine 0 SEEN /hpf (<or=2+); Red Blood Cells-Urine 0 SEEN /hpf (0-5); White Blood Cells 0 SEEN /hpf (0-5)
[2022-07-15 15:26] LABS: Color, Urine Straw (Yellow); Glucose, Dipstick Normal (Normal); Ketone-Dipstick Negative (Negative); Leukocyte Esterase-Dipstick Negative /ul (Negative); Nitrite-Dipstick Negative (Negative); Occult Blood-Urine Negative /ul (Negative); Protein-Dipstick Negative (Negative); Urine Bilirubin Dipstick Negative (Negative); Urine Clarity Clear (Clear); Urine Urobilinogen Normal (Normal)
[2022-07-15 15:49] LABS: Bacteria RARE /hpf (None Seen); Squamous Epithelial Cells - UA 0-5 SEEN /hpf (5-10)
== END 2022-07-15 16:24 | disposition home or self-care (01) ==
PROVIDERS: Emergency Provider Emergency Medicine; PCP Family Medicine; Visit Provider Emergency Medicine
DX: S06.0X0A Concussion without loss of consciousness, initial encounter (principal); S02.2XXA Fracture of nasal bones, initial encounter for closed fracture; R94.39 Abnormal result of other cardiovascular function study; I10 Essential (primary) hypertension; Z79.82 Long term (current) use of aspirin; Z79.899 Other long term (current) drug therapy; W06.XXXA Fall from bed, initial encounter
CPT/HCPCS: 70450; 70486; 72125; 81001; 93005; 99282

== ENCOUNTER → 2022-08-31 | Outpatient (CLI) | payer MEDICARE, SELFPAY ==
[2022-08-31 10:48] LABS: AST(SGOT) 16 U/L (15-37); Alanine Aminotransfer ALT/SGPT 24 U/L (13-56); Albumin, Serum 3.2 g/dL (3.2-5.0); Alkaline Phosphatase 174 U/L (45-117); Bilirubin, Direct 0.07 mg/dL (0.00-0.30); Carbamazepine (Tegretol) 7.1 ug/mL (4.0-12.0); Globulin 3.1 g/dL (2.2-4.2); Protein, Total 6.3 g/dL (6.4-8.2); Sodium Level 138 mmol/L (136-145)
== END | disposition home or self-care (01) ==
LOC: LAB 09:09
PROVIDERS: PCP Family Medicine; Referring Provider Psychiatry & Neurology Neurology; Visit Provider Psychiatry & Neurology Neurology
DX: G50.0 Trigeminal neuralgia (principal)
CPT/HCPCS: 36415; 80076; 80156; 84295

== ENCOUNTER → 2023-03-16 | Outpatient (CLI) | payer MEDICARE, SELFPAY ==
[2023-03-16 10:09] LABS: Hemoglobin 11.9 g/dL (12.0-15.0); Mean Corp Hgb Conc 33.1 g/dL (32-36); Mean Corpuscular Volume 90.7 fL (81-99); Mean Platelet Vol. 9.6 fl (6.2-12.0); Platelet Count 244 K/mm3 (150-450); RBC Distribution Width CV 12.4 % (11.6-14.6); RBC Distribution Width SD 40.9 fl (35.1-43.9); Red Blood Count 3.97 M/mm3 (4.2-5.4)
[2023-03-16 10:38] LABS: ALB/GLOB Ratio 1.1 RATIO (0.9-2.4); AST(SGOT) 18 U/L (15-37); Alanine Aminotransfer ALT/SGPT 25 U/L (13-56); Albumin, Serum 3.5 g/dL (3.2-5.0); Alkaline Phosphatase 180 U/L (45-117); Anion Gap 3 (5-15); BUN 16 mg/dL (7-18); BUN/Creat Ratio 19.2 RATIO (10-20); Calcium,Total 8.7 mg/dL (8.5-10.1); Chloride 99 mmol/L (98-107); Creatinine, Serum 0.83 mg/dL (0.55-1.02); EST Glomerular Filtration Rate 71 mL/min (>60); Est Glom Filt Rate - Afr Amer 85 mL/min (>60); Globulin 3.2 g/dL (2.2-4.2); Glucose 117 mg/dL (74-106); Potassium 4.5 mmol/L (3.5-5.1); Protein, Total 6.7 g/dL (6.4-8.2); Sodium Level 130 mmol/L (136-145)
== END | disposition home or self-care (01) ==
LOC: LAB 09:36
PROVIDERS: PCP Family Medicine; Referring Provider Psychiatry & Neurology Neurology; Visit Provider Psychiatry & Neurology Neurology
DX: G50.0 Trigeminal neuralgia (principal)
CPT/HCPCS: 36415; 80053; 80156; 85027

== ENCOUNTER → 2023-03-31 | Outpatient (CLI) | payer MEDICARE, SELFPAY ==
[2023-03-31 11:20] LABS: Sodium Level 137 mmol/L (136-145)
== END | disposition home or self-care (01) ==
LOC: LAB 09:48
PROVIDERS: PCP Family Medicine; Referring Provider Psychiatry & Neurology Neurology; Visit Provider Psychiatry & Neurology Neurology
DX: E87.1 Hypo-osmolality and hyponatremia (principal)
CPT/HCPCS: 36415; 84295

== ENCOUNTER → 2023-05-06 | Outpatient (CLI) | payer MEDICARE, SELFPAY ==
[2023-05-06 11:28] LABS: Sodium Level 136 mmol/L (136-145)
== END | disposition home or self-care (01) ==
LOC: LAB 10:49
PROVIDERS: PCP Family Medicine; Referring Provider Family Medicine; Visit Provider Family Medicine
DX: E87.1 Hypo-osmolality and hyponatremia (principal)
CPT/HCPCS: 36415; 84295

== ENCOUNTER → 2023-06-17 | Outpatient (CLI) | payer MEDICARE, SELFPAY ==
[2023-06-17 07:42] LABS: Hematocrit 35.9 % (37-47); Mean Corp Hgb Conc 33.4 g/dL (32-36); Mean Corpuscular Hgb 30.2 pg (27.0-32.0); Mean Corpuscular Volume 90.4 fL (81-99); Mean Platelet Vol. 9.3 fl (6.2-12.0); Platelet Count 268 K/mm3 (150-450); RBC Distribution Width CV 12.3 % (11.6-14.6); RBC Distribution Width SD 40.6 fl (35.1-43.9); Red Blood Count 3.97 M/mm3 (4.2-5.4); White Blood Count 6.1 K/mm3 (4.4-11.0)
[2023-06-17 08:11] LABS: ALB/GLOB Ratio 1.1 RATIO (0.9-2.4); AST(SGOT) 19 U/L (15-37); Alanine Aminotransfer ALT/SGPT 24 U/L (13-56); Albumin, Serum 3.5 g/dL (3.2-5.0); Alkaline Phosphatase 176 U/L (45-117); Anion Gap 4 (5-15); BUN 12 mg/dL (7-18); BUN/Creat Ratio 13.8 RATIO (10-20); Calcium,Total 8.7 mg/dL (8.5-10.1); Chloride 94 mmol/L (98-107); Creatinine, Serum 0.87 mg/dL (0.55-1.02); EST Glomerular Filtration Rate 67 mL/min (>60); Est Glom Filt Rate - Afr Amer 81 mL/min (>60); Globulin 3.2 g/dL (2.2-4.2); Glucose 104 mg/dL (74-106); Potassium 3.9 mmol/L (3.5-5.1); Protein, Total 6.7 g/dL (6.4-8.2); Sodium Level 128 mmol/L (136-145)
[2023-06-20 18:07] LABS: Trileptal-Oxcarbazepine 16 ug/mL (10-35)
== END | disposition home or self-care (01) ==
LOC: LAB 06:52
PROVIDERS: PCP Family Medicine; Referring Provider Psychiatry & Neurology Neurology; Visit Provider Psychiatry & Neurology Neurology
DX: G50.0 Trigeminal neuralgia (principal)
CPT/HCPCS: 36415; 80053; 82542; 85027

== ENCOUNTER → 2023-06-27 | Outpatient (CLI) | payer MEDICARE, SELFPAY ==
[2023-06-27 09:32] LABS: Sodium Level 136 mmol/L (136-145)
== END | disposition home or self-care (01) ==
LOC: LAB 07:49
PROVIDERS: PCP Family Medicine; Referring Provider Psychiatry & Neurology Neurology; Visit Provider Psychiatry & Neurology Neurology
DX: E87.1 Hypo-osmolality and hyponatremia (principal)
CPT/HCPCS: 36415; 84295

== ENCOUNTER → 2023-12-19 | Outpatient (CLI) | payer MEDICARE, SELFPAY ==
[2023-12-19 11:26] LABS: Sodium Level 130 mmol/L (136-145)
== END | disposition home or self-care (01) ==
LOC: LAB 10:27
PROVIDERS: PCP Family Medicine; Referring Provider Psychiatry & Neurology Neurology; Visit Provider Psychiatry & Neurology Neurology
DX: E22.2 Syndrome of inappropriate secretion of antidiuretic hormone (principal)
CPT/HCPCS: 36415; 84295

== ENCOUNTER → 2024-01-12 | Outpatient (CLI) | payer MEDICARE, SELFPAY ==
[2024-01-12 16:11] LABS: Sodium Level 136 mmol/L (136-145)
[2024-01-12 16:25] LABS: BNP,B-Type NATRIURETIC PEPTIDE 62.9 pg/mL (0-100)
[2024-01-12 21:03] LABS: Anion Gap 5 (5-15); BUN 15 mg/dL (7-18); BUN/Creat Ratio 16.2 RATIO (10-20); Calcium,Total 8.9 mg/dL (8.5-10.1); Chloride 104 mmol/L (98-107); Creatinine, Serum 0.93 mg/dL (0.55-1.02); EST Glomerular Filtration Rate 62 mL/min (>60); Est Glom Filt Rate - Afr Amer 75 mL/min (>60); Glucose 101 mg/dL (74-106); Magnesium 2.2 mg/dL (1.6-2.6); Potassium 4.3 mmol/L (3.5-5.1); Sodium Level 137 mmol/L (136-145)
== END | disposition home or self-care (01) ==
LOC: LAB 14:27
PROVIDERS: Psychiatry & Neurology Neurology; PCP Family Medicine; Referring Provider Nurse Practitioner Family; Visit Provider Nurse Practitioner Family
DX: R06.02 Shortness of breath (principal); E87.1 Hypo-osmolality and hyponatremia
CPT/HCPCS: 36415; 80048; 83735; 83880; 84295

== ENCOUNTER → 2024-03-01 | Outpatient (CLI) | payer MEDICARE, SELFPAY ==
[2024-03-01 15:42] LABS: Sodium Level 136 mmol/L (136-145)
== END | disposition home or self-care (01) ==
LOC: LAB 14:09
PROVIDERS: PCP Family Medicine; Visit Provider Psychiatry & Neurology Neurology
DX: E87.1 Hypo-osmolality and hyponatremia (principal)
CPT/HCPCS: 36415; 84295

== ENCOUNTER → 2024-09-26 | Outpatient (CLI) | payer MEDICARE, SELFPAY ==
[2024-09-26 13:44] LABS: Hematocrit 34.7 % (37-47); Hemoglobin 11.6 g/dL (12.0-15.0); Mean Corp Hgb Conc 33.4 g/dL (32-36); Mean Corpuscular Hgb 29.7 pg (27.0-32.0); Mean Corpuscular Volume 88.7 fL (81-99); Mean Platelet Vol. 9.2 fl (6.2-12.0); Platelet Count 275 K/mm3 (150-450); RBC Distribution Width CV 13.1 % (11.6-14.6); RBC Distribution Width SD 42.6 fl (35.1-43.9); Red Blood Count 3.91 M/mm3 (4.2-5.4); White Blood Count 6.6 K/mm3 (4.4-11.0)
[2024-09-26 13:55] LABS: ALB/GLOB Ratio 1.1 RATIO (0.9-2.4); AST(SGOT) 18 U/L (15-37); Alanine Aminotransfer ALT/SGPT 23 U/L (13-56); Albumin, Serum 3.5 g/dL (3.2-5.0); Alkaline Phosphatase 275 U/L (45-117); Anion Gap 3 (5-15); BUN 14 mg/dL (7-18); BUN/Creat Ratio 16.5 RATIO (10-20); Calcium,Total 8.9 mg/dL (8.5-10.1); Chloride 99 mmol/L (98-107); Creatinine, Serum 0.85 mg/dL (0.55-1.02); EST Glomerular Filtration Rate 69 mL/min (>60); Est Glom Filt Rate - Afr Amer 83 mL/min (>60); Globulin 3.3 g/dL (2.2-4.2); Glucose 109 mg/dL (74-106); Potassium 3.8 mmol/L (3.5-5.1); Protein, Total 6.8 g/dL (6.4-8.2); Sodium Level 134 mmol/L (136-145)
[2024-10-01 16:09] LABS: Trileptal-Oxcarbazepine 21 ug/mL (10-35)
== END | disposition home or self-care (01) ==
LOC: LAB 13:11
PROVIDERS: PCP Family Medicine; Referring Provider Psychiatry & Neurology Neurology; Visit Provider Psychiatry & Neurology Neurology
DX: G50.0 Trigeminal neuralgia (principal)
CPT/HCPCS: 36415; 80053; 82542; 85027

== ENCOUNTER → 2024-10-30 | Outpatient (CLI) | payer MEDICARE, SELFPAY ==
[2024-10-30 11:14] LABS: Vitamin B12 973 pg/mL (211-911)
[2024-10-30 11:30] LABS: Anion Gap 4 (5-15); BUN 13 mg/dL (7-18); BUN/Creat Ratio 15.4 RATIO (10-20); Calcium,Total 8.9 mg/dL (8.5-10.1); Chloride 99 mmol/L (98-107); Creatinine, Serum 0.84 mg/dL (0.55-1.02); EST Glomerular Filtration Rate 69 mL/min (>60); Est Glom Filt Rate - Afr Amer 84 mL/min (>60); Glucose 133 mg/dL (74-106); Sodium Level 133 mmol/L (136-145)
[2024-11-01 22:06] LABS: Vitamin B1, Thiamine 109.3 nmol/L (66.5-200.0)
== END | disposition home or self-care (01) ==
LOC: LAB 09:52
PROVIDERS: PCP Family Medicine; Referring Provider Psychiatry & Neurology Neurology; Visit Provider Psychiatry & Neurology Neurology
DX: G31.84 Mild cognitive impairment of uncertain or unknown etiology (principal); F41.9 Anxiety disorder, unspecified
CPT/HCPCS: 36415; 80048; 82607; 82746; 84425; 84443

== ENCOUNTER → 2025-04-03 | Outpatient (CLI) | payer MEDICARE, SELFPAY ==
--- NOTE | 2025-04-03 14:11 | CT_ITS ---
EXAM: NONCONTRAST CT SCAN OF THE HEAD CLINICAL HISTORY: Mild cognitive impairment, trigeminal neuralgia COMPARISON: None TECHNIQUE: Serial axial series through the head were obtained without contrast. 2-D coronal and sagittal reformats were then obtained. FINDINGS: Brain: There is no acute large territorial infarct, intracranial hemorrhage, midline shift or mass effect. There are atherosclerotic vascular calcifications involving the bilateral carotid siphons. The sella and pineal gland regions appear unremarkable. There is no evidence of cerebellar tonsillar herniation. Ventricles: There is no acute hydrocephalus. Basilar cisterns are patent. Paranasal sinuses: Well-aerated Mastoid air cells: Well-aerated. Calvarium: The bony calvarium is intact. Orbits: The bilateral globes are symmetric, without retrobulbar compressive mass lesion or hemorrhage. CT/Brain/Head without Contrast IMPRESSION: No acute intracranial pathology. [facility]
== END | disposition home or self-care (01) ==
LOC: CT 14:10
PROVIDERS: PCP Family Medicine; Referring Provider Psychiatry & Neurology Neurology; Visit Provider Psychiatry & Neurology Neurology
DX: G31.84 Mild cognitive impairment of uncertain or unknown etiology (principal); G50.0 Trigeminal neuralgia
CPT/HCPCS: 70450

== ENCOUNTER → 2025-04-06 | Outpatient (CLI) | payer MEDICARE, SELFPAY ==
[2025-04-06 07:31] LABS: Hematocrit 38.3 % (37-47); Hemoglobin 12.8 g/dL (12.0-15.0); Mean Corp Hgb Conc 33.4 g/dL (32-36); Mean Corpuscular Volume 89.7 fL (81-99); Platelet Count 289 K/mm3 (150-450); RBC Distribution Width CV 13.9 % (11.6-14.6); RBC Distribution Width SD 45.1 fl (35.1-43.9); Red Blood Count 4.27 M/mm3 (4.2-5.4); White Blood Count 7.8 K/mm3 (4.4-11.0)
[2025-04-06 08:00] LABS: ALB/GLOB Ratio 1.5 RATIO (0.9-2.4); AST(SGOT) 24 U/L (<=31); Alanine Aminotransfer ALT/SGPT 16 U/L (<=34); Albumin, Serum 4.2 g/dL (3.4-4.8); Alkaline Phosphatase 223 U/L (35-104); Anion Gap 11 (5-15); BUN 20 mg/dL (4-19); BUN/Creat Ratio 24.9 RATIO (10-20); Calcium,Total 9.3 mg/dL (7.6-11.0); Chloride 101 mmol/L (98-108); Creatinine, Serum 0.78 mg/dL (0.70-1.20); EST Glomerular Filtration Rate 77 (>60); Globulin 2.8 g/dL (2.2-4.2); Glucose 102 mg/dL (70-99); Sodium Level 137 mmol/L (133-145); Total Bilirubin 0.37 mg/dL (0.00-1.30)
[2025-04-12 02:07] LABS: Trileptal-Oxcarbazepine 15 ug/mL (10-35)
== END | disposition home or self-care (01) ==
LOC: LAB 07:10
PROVIDERS: PCP Family Medicine; Referring Provider Psychiatry & Neurology Neurology; Visit Provider Psychiatry & Neurology Neurology
DX: R73.9 Hyperglycemia, unspecified (principal); G50.0 Trigeminal neuralgia; E22.2 Syndrome of inappropriate secretion of antidiuretic hormone
CPT/HCPCS: 36415; 80053; 82542; 83036; 85027